=== PATIENT | male | born 1935 | race Caucasian/White ===

== ENCOUNTER → 2022-01-14 14:39 | Outpatient (BNVA) | payer MEDICARE, OTHER, SELFPAY | PROVIDERS: Family Provider Family Medicine; PCP Family Medicine; Visit Provider Internal Medicine | DX: I25.10 Atherosclerotic heart disease of native coronary artery without angina pectoris (principal); I35.8 Other nonrheumatic aortic valve disorders; Z95.2 Presence of prosthetic heart valve; Z79.01 Long term (current) use of anticoagulants; I10 Essential (primary) hypertension ==

== ENCOUNTER → 2022-01-20 12:46 | Outpatient (BNVA) | payer MEDICARE, OTHER, SELFPAY | PROVIDERS: Family Provider Family Medicine; PCP Family Medicine; Visit Provider Internal Medicine | DX: I25.10 Atherosclerotic heart disease of native coronary artery without angina pectoris (principal); I10 Essential (primary) hypertension; Z79.01 Long term (current) use of anticoagulants; I25.5 Ischemic cardiomyopathy; E78.01 Familial hypercholesterolemia; G47.33 Obstructive sleep apnea (adult) (pediatric); I27.20 Pulmonary hypertension, unspecified; Z95.2 Presence of prosthetic heart valve; Z95.1 Presence of aortocoronary bypass graft; Z95.5 Presence of coronary angioplasty implant and graft | CPT/HCPCS: 99214 ==

== ENCOUNTER 2022-02-21 13:01 | Emergency (ER) | payer MEDICARE, OTHER, SELFPAY ==
[2022-02-21 13:08] VITALS: BP 163/83; PULSE 60; RESP 16; TEMP 36.4; O2SAT 97; BMI 25.0
--- NOTE | 2022-02-21 13:15 | ECG_ITS ---
[facility] Test Date: 2022-02-21 Pat Name: Jermaine Ambrosio Department: Room: Gender: Male [employer] Department Supervisor: : [id number] Requested By: Hal Brunson Order Number: [id number] Karine MD: Israel Agarwal M.D. Measurements Intervals [place] Rate: 57 P: 36 MS: 158 QRS: -11 QRSD: 91 T: 65 QT: 436 QTc: 426 Interpretive Statements SINUS BRADYCARDIA LEFT VENTRICULAR HYPERTROPHY AND ST-T CHANGE [VOLTAGE CRITERIA PLUS ST/T ABNORMALITY] Compared to ECG 11/23/2017 15:25:08 Left ventricular hypertrophy now present ST (T wave) deviation now present Sinus rhythm no longer present Ventricular premature complex(es) no longer present T-wave abnormality no longer present Electronically Signed On 02-21-2022 22:01:08 CDT by Israel Agarwal M.D. [email or web address] Database (RCDb)[id number]
--- NOTE | 2022-02-21 13:17 | CTR_ITS ---
PROCEDURE INFORMATION: Exam: CT Angiography Head With Contrast, Arteriography Exam date and time: 02/21/2022 2:46 PM Age: 86 years old Clinical indication: Speech disturbance; Patient HX: Transient aphasia and slurred speech; Additional info: Cta TECHNIQUE: Imaging protocol: Computed tomography angiography of the head with contrast. Exam focused on the arteries. 3D rendering (Not supervised by radiologist): MIP and/or 3D reconstructed images were created by the technologist. Radiation optimization: All CT scans at this facility use at least one of these dose optimization techniques: automated exposure control; mA and/or kV adjustment per patient size (includes targeted exams where dose is matched to clinical indication); or iterative reconstruction. Contrast material: OMNI 350; Contrast volume: 95 ml; Contrast route: INTRAVENOUS (IV); COMPARISON: 1. CT head wo con* [id number] 02/21/2022 2:[address] head wo con* [id number] 11/23/2017 9:54 AM RADIATION DOSE METRICS: Total DLP (mGy-cm): 1810.9 FINDINGS: ANTERIOR CIRCULATION: Right internal carotid artery: Unremarkable. Intracranial segment is patent with no significant stenosis. No aneurysm. Right middle cerebral artery: Unremarkable. No occlusion or significant stenosis. No aneurysm. Right anterior cerebral artery: Unremarkable. No occlusion or significant stenosis. No aneurysm. Left internal carotid artery: Unremarkable. Intracranial segment is patent with no significant stenosis. No aneurysm. Left middle cerebral artery: Unremarkable. No occlusion or significant stenosis. No aneurysm. Left anterior cerebral artery: Unremarkable. No occlusion or significant stenosis. No aneurysm. POSTERIOR CIRCULATION: Right vertebral artery: Unremarkable. No occlusion or significant stenosis. No aneurysm. Left vertebral artery: Unremarkable. No occlusion or significant stenosis. No aneurysm. Basilar artery: Unremarkable. No occlusion or significant stenosis. No aneurysm. Right posterior cerebral artery: Unremarkable. No occlusion or significant stenosis. No aneurysm. Left posterior cerebral artery: Unremarkable. No occlusion or significant stenosis. No aneurysm. Brain: No definite mass, mass effect, or midline shift. Cerebral ventricles: No ventriculomegaly. Bones/joints: Unremarkable. No acute fracture. Soft tissues: Unremarkable. PROCEDURE INFORMATION: Exam: CT Angiography Neck With Contrast Exam date and time: 02/21/2022 2:46 PM Age: 86 years old Clinical indication: Speech disturbance; Patient HX: Transient aphasia and slurred speech; Additional info: Cta TECHNIQUE: Imaging protocol: Computed tomography angiography of the neck with contrast. 3D rendering (Not supervised by radiologist): MIP and/or 3D reconstructed images were created by the technologist. Radiation optimization: All CT scans at this facility use at least one of these dose optimization techniques: automated exposure control; mA and/or kV adjustment per patient size (includes targeted exams where dose is matched to clinical indication); or iterative reconstruction. Contrast material: OMNI 350; Contrast volume: 95 ml; Contrast route: INTRAVENOUS (IV); COMPARISON: 1. CT head wo con* [id number] 02/21/2022 2:[address] head wo con* [id number] 11/23/2017 9:54 AM RADIATION DOSE METRICS: Total DLP (mGy-cm): 1810.9 FINDINGS: Right common carotid artery: No stenosis. No dissection or occlusion. Right internal carotid artery: No stenosis of the extracranial segment. No dissection or occlusion. Right external carotid artery: No occlusion or stenosis of the origin. Left common carotid artery: No stenosis. No dissection or occlusion. Left internal carotid artery: No stenosis of the extracranial segment. No dissection or occlusion. Left external carotid artery: No occlusion or stenosis of the origin. Right vertebral artery: No stenosis. No dissection or occlusion. Left vertebral artery: No stenosis. No dissection or occlusion. Soft tissues: Normal. No significant soft tissue swelling. Bones/joints: No acute fracture. CT/CT angio headneck* [id number] IMPRESSION: No large vessel stenosis or occlusion. IMPRESSION: No stenosis or occlusion. REFERENCES: NASCET CRITERIA. The degree of internal carotid artery stenosis is based on NASCET criteria. Normal is no stenosis. Mild is less than 50% stenosis. Moderate is 50-69% stenosis. Severe is 70% to 99% stenosis. Total occlusion is no detectable patent lumen.
--- NOTE | 2022-02-21 13:22 | W.ED.GENADLT ---
HPI - General Adult General: Chief complaint: General Medical Stated complaint: Slurred Speech Time Seen by Provider: 02/21/22 13:14 History of Present Illness: 86-year-old who is on warfarin presents with transient episode of aphasia and slurred speech. This occurred approximately an hour ago while at [employer]. It is resolved by time of arrival. Denies any focal numbness weakness vision or hearing change. Denies any vertigo. Denies chest pain or shortness of breath recent fall or head injury. Review of Systems Narrative: - CONSTITUTIONAL: Denies weight loss, fever and chills. - HEENT: Denies changes in vision and hearing. - RESPIRATORY: Denies SOB and cough. - CV: Denies palpitations and CP. - GI: Denies abdominal pain, nausea, vomiting and diarrhea. - : Denies dysuria and urinary frequency. - MSK: Denies myalgia and joint pain. - SKIN: Denies rash and pruritus. - NEUROLOGICAL: As above - PSYCHIATRIC: Denies suicidal ideation [facility] ED PFSH: Medical History (Updated 02/21/22 @ 16:08 by Hal Brunson MD) Anticoagulant long-term use Warfarin ASHD (arteriosclerotic heart disease) CVA (cerebral vascular accident) Hyperlipidemia Ischemic cardiomyopathy MARCELO (obstructive sleep apnea) Pulmonary HTN Secondary Surgical History S/P angioplasty with stent S/P CABG (coronary artery bypass graft) S/P mitral valve replacement Mechanical mitral valve Family History Mother Hypertension CAD (coronary artery disease) Family/Other CAD (coronary artery disease) MATERNAL UNCLE Myocardial infarction Sister Diabetes Social History Smoking and tobacco status: never smoked Alcohol intake: never Lives independently: Yes Marital status: / service: No Current occupational status: retired Current gender identity: Male Marie/Gnosticism: Shinto Physical Exam Narrative: EXAM NARRATIVE: - GENERAL: Alert and oriented x 3. No acute distress. Well-nourished. - EYES: EOMI. Anicteric. - HENT: Atraumatic, no C-spine tenderness. Moist mucous membranes. No scleral icterus. No cervical lymphadenopathy. - LUNGS: Clear to auscultation bilaterally. No accessory muscle use. Equal lung sounds bilaterally. No respiratory distress. - CARDIOVASCULAR: Regular rate and rhythm. No murmur. No JVD. - ABDOMEN: Soft, non-tender and non-distended. Negative CVA tenderness bilaterally, no rebound or guarding, negative Frey sign. No palpable masses. - EXTREMITIES: No edema. Non-tender. - SKIN: No rashes or lesions. Warm. - NEUROLOGIC: GCS 15. No slurred speech or aphasia. No meningismus or focal neurological deficits. CN II-XII grossly intact. - PSYCHIATRIC: Cooperative. Appropriate mood and affect. Course Vital Signs: Vital signs: Vital Signs Temperature 97.6 F 02/21/22 13:08 Pulse Rate 60 02/21/22 13:59 Respiratory Rate 16 02/21/22 13:59 Blood Pressure 105/53 02/21/22 13:59 Pulse Oximetry 96 02/21/22 13:59 MDM - General Adult Medical Decision Making 86-year-old presents with transient aphasia and slurred speech. However by the time of his ER evaluation neurologic symptoms have completely resolved. He is NIH stroke scale is 0. CT scan of the head and CT of the head and neck did not reveal any intracranial hemorrhage or acute arterial occlusion. Lab work unremarkable. Discussed with on-call neurologist at [facility] who at this time recommends outpatient follow-up with concern for TIA. This time however does not recommend admission or MRI from the emergency department. Referral to neurology provided. At this time I believe patient would be safe for discharge and outpatient follow-up. Return precautions provided. Plan was reviewed with the patient who expressed understanding. Questions answered. Patient will follow up with neurology and PCP. Patient discharged in stable condition. Lab Data : 02/21/22 13:35 02/21/22 13:35 Radiology Impressions Head/Neck CTA 02/21/22 13:17 IMPRESSION: No large vessel stenosis or occlusion. IMPRESSION: No stenosis or occlusion. REFERENCES: NASCET CRITERIA. The degree of internal carotid artery stenosis is based on NASCET criteria. Normal is no stenosis. Mild is less than 50% stenosis. Moderate is 50-69% stenosis. Severe is 70% to 99% stenosis. Total occlusion is no detectable patent lumen. Head CT 02/21/22 14:54 IMPRESSION: 1. No acute intracranial abnormality. 2. Moderate diffuse cerebral atrophy. Focal encephalomalacia/subcortical white matter disease in the left frontal and parietal lobes, suggestive of old infarcts or chronic small vessel ischemic disease, which is progressed from prior study. Old lacunar infarcts also noted in the basal ganglia and cerebellar lobes. Laboratory Results WBC 6.3 10^3/uL (4.0-10.0) 02/21/22 13:35 RBC 3.67 10^6/uL (4.1-5.3) L 02/21/22 13:35 Hgb 11.3 g/dL (11.7-16.6) L 02/21/22 13:35 Hct 34.4 % (42.0-52.0) L 02/21/22 13:35 MCV 93.7 fl (80-94) 02/21/22 13:35 MCH 30.8 pg (28.0-34.0) 02/21/22 13:35 MCHC 32.8 g/dL (30.0-36.0) 02/21/22 13:35 RDW 14.2 % (12.1-15.1) 02/21/22 13:35 Plt Count 201 10^3/cmm (130-400) 02/21/22 13:35 MPV 11.0 fL (7.4-10.4) H 02/21/22 13:35 Neut % (Auto) 65.1 % 02/21/22 13:35 Lymph % (Auto) 21.5 % 02/21/22 13:35 [place] % (Auto) 8.1 % 02/21/22 13:35 Eos % (Auto) 4.3 % 02/21/22 13:35 Baso % (Auto) 0.5 % 02/21/22 13:35 Neut # (Auto) 4.09 10^3/uL (1.8-7.7) 02/21/22 13:35 Lymph # (Auto) 1.4 10^3/uL (0.8-4.8) 02/21/22 13:35 [place] # (Auto) 0.5 10^3/uL (0.2-0.9) 02/21/22 13:35 Eos # (Auto) 0.3 10^3/uL (0.0-0.8) 02/21/22 13:35 Baso # (Auto) 0.0 10^3/uL (0.0-0.1) 02/21/22 13:35 Nucleated RBC % (auto) 0 % 02/21/22 13:35 Nucleated RBCs # 0.0 /100WBC 02/21/22 13:35 PT 27.90 SECONDS (12.1-14.9) H 02/21/22 13:35 INR 2.55 (0.8-1.2) H 02/21/22 13:35 APTT 42.5 SECONDS (23.9-36.7) H 02/21/22 13:35 Sodium 136 mmol/L (136-145) 02/21/22 13:35 Potassium 4.3 mmol/L (3.5-5.1) 02/21/22 13:35 Chloride 102 mmol/L (98-107) 02/21/22 13:35 Carbon Dioxide 24 mmol/L (22-29) 02/21/22 13:35 Anion Gap 14.3 (5-19) 02/21/22 13:35 BUN 19 mg/dL (8-23) 02/21/22 13:35 Creatinine 1.1 mg/dL (0.7-1.2) 02/21/22 13:35 GFR Calculation Not Reportable 02/21/22 13:35 Glucose 104 mg/dL (65-115) 02/21/22 13:35 POC Glucose 103 mg/dL (70-110) 02/21/22 13:24 Calculated Osmolality 285 mOsm/kg (285-295) 02/21/22 13:35 Calcium 9.8 mg/dL (8.5-10.5) 02/21/22 13:35 Total Bilirubin 0.4 mg/dL (0.15-1.2) 02/21/22 13:35 AST 26 U/L (0-40) 02/21/22 13:35 ALT 23 U/L (0-41) 02/21/22 13:35 Alkaline Phosphatase 68 IU/L (40-130) 02/21/22 13:35 Troponin T Baseline 15 ng/L (0-15) 02/21/22 13:35 Total Protein 6.6 g/dL (6.6-8.7) 02/21/22 13:35 Albumin 4.3 g/dL (3.5-5.2) 02/21/22 13:35 Globulin 2.3 g/dL (1.3-4.6) 02/21/22 13:35 Urine Color Yellow (Yellow) 02/21/22 15:05 Urine Appearance Clear (CLEAR) 02/21/22 15:05 Urine pH 5 (5-7) 02/21/22 15:05 Ur Specific Wirt 1.010 (1.005-1.030) 02/21/22 15:05 Urine Protein Neg (Negative) 02/21/22 15:05 Urine Glucose (UA) Norm (Normal) 02/21/22 15:05 Urine Ketones Negative (Negative) 02/21/22 15:05 Urine Blood 2+ (Negative) H 02/21/22 15:05 Urine Nitrate Negative (Negative) 02/21/22 15:05 Urine Bilirubin Neg (Negative) 02/21/22 15:05 Urine Urobilinogen Norm mg/dL (Negative) 02/21/22 15:05 Ur Leukocyte Esterase Negative (Negative) 02/21/22 15:05 Urine RBC 15-25 /hpf (0-2) H 02/21/22 15:05 Urine WBC 0-4 /hpf (0-5) H 02/21/22 15:05 Ur Squamous Epith Cells 0-4 /hpf (0-5) H 02/21/22 15:05 Amorphous Sediment Not Reportable 02/21/22 15:05 Urine Bacteria 1+ /hpf (NONE) H 02/21/22 15:05 Urine Mucus 1+ /hpf 02/21/22 15:05 EKG Data EKG 1: Computer generated interpretation: Head/Neck CTA 02/21/22 13:17 IMPRESSION: No large vessel stenosis or occlusion. IMPRESSION: No stenosis or occlusion. REFERENCES: NASCET CRITERIA. The degree of internal carotid artery stenosis is based on NASCET criteria. Normal is no stenosis. Mild is less than 50% stenosis. Moderate is 50-69% stenosis. Severe is 70% to 99% stenosis. Total occlusion is no detectable patent lumen. Head CT 04/10/22 14:54 IMPRESSION: 1. No acute intracranial abnormality. 2. Moderate diffuse cerebral atrophy. Focal encephalomalacia/subcortical white matter disease in the left frontal and parietal lobes, suggestive of old infarcts or chronic small vessel ischemic disease, which is progressed from prior study. Old lacunar infarcts also noted in the basal ganglia and cerebellar lobes. Other EKG comments: Sinus bradycardia, rate of 57, possible LVH, no sign of acute ischemia or other acute abnormality. Discharge Plan Discharge Patient Disposition: Home Clinical Impression: Brain TIA Condition: Stable Prescriptions: No Action nitroglycerin [Nitrostat] 0.4 mg tablet, sublingual 0.4 mg SUBLINGUAL Q5M PRN (Reason: Chest Pain) 0RF multivitamin [Multiple Vitamins] Tablet 1 tab PO DAILY 0RF finasteride 5 mg tablet 5 mg PO DAILY 0RF donepezil 5 mg tablet 5 mg PO DAILY 0RF ferrous sulfate 325 mg (65 mg iron) tablet 325 mg PO DAILY 0RF quinapril 10 mg tablet 10 mg PO DAILY 0RF omeprazole 20 mg capsule,delayed release(DR/EC) 20 mg PO DAILY 0RF rosuvastatin [Crestor] 20 mg tablet 20 mg PO DAILY 0RF tamsulosin 0.4 mg capsule 0.4 mg PO DAILY 0RF niacin 500 mg tablet 500 mg PO DAILY 0RF warfarin 5 mg tablet 5 mg PO DAILY Qty: 90 3RF Protocol: Dose Management Condition: Tuesday Dose/Route: 6 mg Instruction: 1 x 6 mg tablet Condition: Tuesday Dose/Route: 5 mg Instruction: 1 x 5 mg tablet Condition: Tuesday Dose/Route: 6 mg Instruction: 1 x 6 mg tablet Condition: Tuesday Dose/Route: 5 mg Instruction: 1 x 5 mg tablet Condition: Dose/Route: 6 mg Instruction: 1 x 6 mg tablet Condition: Tuesday Dose/Route: 5 mg Instruction: 1 x 5 mg tablet Condition: Tuesday Dose/Route: 6 mg Instruction: 1 x 6 mg tablet Protocol Text: Adjustment Start Date: 01/14/22 INR Value: 2.7 INR Date: 01/13/22 Recheck Date: 02/11/22 warfarin 1 mg tablet 1 mg PO DIRECTED Qty: 90 3RF Protocol: Dose Management Condition: Tuesday Dose/Route: 6 mg Instruction: 1 x 6 mg tablet Condition: Tuesday Dose/Route: 5 mg Instruction: 1 x 5 mg tablet Condition: Tuesday Dose/Route: 6 mg Instruction: 1 x 6 mg tablet Condition: Tuesday Dose/Route: 5 mg Instruction: 1 x 5 mg tablet Condition: Dose/Route: 6 mg Instruction: 1 x 6 mg tablet Condition: Tuesday Dose/Route: 5 mg Instruction: 1 x 5 mg tablet Condition: Tuesday Dose/Route: 6 mg Instruction: 1 x 6 mg tablet Protocol Text: Adjustment Start Date: 01/14/22 INR Value: 2.7 INR Date: 01/13/22 Recheck Date: 02/11/22 atenolol 25 mg tablet 12.5 mg PO DAILY Qty: 45 3RF clopidogrel 75 mg tablet 75 mg PO DAILY Qty: 90 3RF Discharge Orders: Discharge ED (Routine); Ordered 02/21/22 Ordered By: Hal Brunson Referrals: Alma Aguirre MD [Physician] - 1-3 days Alicia Spicer MD [Primary Care Provider] - Patient Instructions: Transient Ischemic Attack (ED), Opioid Safety Coding Level of Care Code ED Medical Manager for Chris Maharaj
[2022-02-21 13:27] LABS: Glucose Point of Care 103 mg/dL (70-110)
[2022-02-21 13:44] LABS: Basophils % 0.5 %; Eosinophils # 0.3 10^3/uL (0.0-0.8); Eosinophils % 4.3 %; Hematocrit 34.4 % (42.0-52.0); Hemoglobin 11.3 g/dL (11.7-16.6); Lymphocytes # 1.4 10^3/uL (0.8-4.8); Lymphocytes % 21.5 %; Mean Corpuscular HGB Conc 32.8 g/dL (30.0-36.0); Mean Corpuscular Hemoglobin 30.8 pg (28.0-34.0); Mean Corpuscular Volume 93.7 fl (80-94); Monocytes # 0.5 10^3/uL (0.2-0.9); Monocytes % 8.1 %; Neutrophils # 4.09 10^3/uL (1.8-7.7); Neutrophils % 65.1 %; Nucleated Red Blood Cells % 0 %; Platelet Count 201 10^3/cmm (130-400); Red Blood Count 3.67 10^6/uL (4.1-5.3); Red Cell Distribution Width 14.2 % (12.1-15.1); White Blood Count 6.3 10^3/uL (4.0-10.0)
[2022-02-21 13:54] LABS: INR 2.55 (0.8-1.2)
[2022-02-21 13:55] LABS: Partial Thromboplastin Time 42.5 SECONDS (23.9-36.7)
[2022-02-21 13:59] VITALS: BP 105/53; PULSE 60; RESP 16; O2SAT 96
[2022-02-21 14:25] LABS: Alanine Aminotransferase 23 U/L (0-41); Albumin Level 4.3 g/dL (3.5-5.2); Alkaline Phosphatase 68 IU/L (40-130); Anion Gap 14.3 (5-19); Aspartate Amino Transferase 26 U/L (0-40); Blood Urea Nitrogen 19 mg/dL (8-23); Calcium 9.8 mg/dL (8.5-10.5); Carbon Dioxide 24 mmol/L (22-29); Chloride 102 mmol/L (98-107); Globulin 2.3 g/dL (1.3-4.6); Glucose 104 mg/dL (65-115); Osmolality Calculated 285 mOsm/kg (285-295); Potassium 4.3 mmol/L (3.5-5.1); Sodium 136 mmol/L (136-145); Total Bilirubin 0.4 mg/dL (0.15-1.2); Total Protein 6.6 g/dL (6.6-8.7); Troponin(5th) Baseline 15 ng/L (0-15)
[2022-02-21] MEDS: iohexol 350 mg/mL 100 mL Btl IV (14:53)
--- NOTE | 2022-02-21 14:54 | CTR_ITS ---
PROCEDURE INFORMATION: Exam: CT Head Without Contrast Exam date and time: 02/21/2022 2:40 PM Age: 86 years old Clinical indication: Speech disturbance; Patient HX: Transient aphasia and slurred speech TECHNIQUE: Imaging protocol: Computed tomography of the head without contrast. Radiation optimization: All CT scans at this facility use at least one of these dose optimization techniques: automated exposure control; mA and/or kV adjustment per patient size (includes targeted exams where dose is matched to clinical indication); or iterative reconstruction. COMPARISON: CT head wo con* [id number] 11/23/2017 9:54 AM RADIATION DOSE METRICS: Total DLP (mGy-cm): 785.02 FINDINGS: Brain: No hemorrhage. Moderate diffuse cerebral atrophy. Focal hypoattenuation/encephalomalacia in the subcortical white matter of the left frontal and parietal lobes, more progressed from prior study. Old lacunar infarcts noted in the basal ganglia and cerebellar lobes. Cerebral ventricles: No ventriculomegaly. Paranasal sinuses: Visualized sinuses are unremarkable. No fluid levels. Mastoid air cells: Visualized mastoid air cells are well aerated. Soft tissues: Unremarkable. Bones/joints: Unremarkable. No acute fracture. CT/CT head wo con* [id number] IMPRESSION: 1. No acute intracranial abnormality. 2. Moderate diffuse cerebral atrophy. Focal encephalomalacia/subcortical white matter disease in the left frontal and parietal lobes, suggestive of old infarcts or chronic small vessel ischemic disease, which is progressed from prior study. Old lacunar infarcts also noted in the basal ganglia and cerebellar lobes.
[2022-02-21 15:26] LABS: Urine Appearance Clear (CLEAR); Urine Color Yellow (Yellow)
[2022-02-21 15:27] LABS: Bilirubin Urine Neg (Negative); Blood Urine 2+ (Negative); Glucose Urine UA Norm (Normal); Ketones Urine Negative (Negative); Leukocyte Esterase Urine Negative (Negative); Nitrate Urine Negative (Negative); Protein Urine Neg (Negative); Urobilinogen Urine Norm (Negative); pH Urine 5 (5-7)
[2022-02-21 15:30] LABS: Add Urine Culture? Yes; Bacteria Urine 1+ /hpf; Mucus Urine 1+ /hpf; RBC Urine 15-25 /hpf (0-2); Squamous Epithelial Cell Urine 0-4 /hpf (0-5); WBC Urine 0-4 /hpf (0-5)
== END 2022-02-21 16:31 | disposition home or self-care (01) ==
PROVIDERS: Emergency Provider Emergency Medicine; PCP Family Medicine
DX: G45.9 Transient cerebral ischemic attack, unspecified (principal); I25.10 Atherosclerotic heart disease of native coronary artery without angina pectoris; E78.5 Hyperlipidemia, unspecified; Z86.73 Personal history of transient ischemic attack (TIA), and cerebral infarction without residual deficits; Z79.01 Long term (current) use of anticoagulants
CPT/HCPCS: 36416; 70450; 70496; 70498; 80053; 81001; 82962; 84484; 85025; 85610; 85730; 87086; 93005; 99283; Q9967

== ENCOUNTER → 2022-03-03 14:34 | Outpatient (BNVA) | payer MEDICARE, OTHER, SELFPAY | PROVIDERS: PCP Family Medicine; Visit Provider Internal Medicine | DX: Z79.01 Long term (current) use of anticoagulants (principal) ==

== ENCOUNTER → 2022-03-26 14:02 | Outpatient (BNVA) | payer MEDICARE, OTHER, SELFPAY | PROVIDERS: PCP Family Medicine; Visit Provider Internal Medicine | DX: Z79.01 Long term (current) use of anticoagulants (principal) ==

== ENCOUNTER → 2022-04-23 09:07 | Outpatient (BNVA) | payer MEDICARE, OTHER, SELFPAY | PROVIDERS: PCP Family Medicine; Visit Provider Internal Medicine | DX: Z79.01 Long term (current) use of anticoagulants (principal) ==

== ENCOUNTER → 2022-04-30 09:21 | Outpatient (BNVA) | payer MEDICARE, OTHER, SELFPAY | PROVIDERS: PCP Family Medicine; Visit Provider Internal Medicine Cardiovascular Disease | DX: Z79.01 Long term (current) use of anticoagulants (principal) ==

== ENCOUNTER → 2022-05-14 10:49 | Outpatient (BNVA) | payer MEDICARE, OTHER, SELFPAY | PROVIDERS: PCP Family Medicine; Visit Provider Internal Medicine Cardiovascular Disease | DX: Z79.01 Long term (current) use of anticoagulants (principal) ==

== ENCOUNTER → 2022-05-21 13:55 | Outpatient (BNVA) | payer MEDICARE, OTHER, SELFPAY | PROVIDERS: PCP Family Medicine; Visit Provider Internal Medicine | DX: Z79.01 Long term (current) use of anticoagulants (principal) ==

== ENCOUNTER → 2022-06-04 08:16 | Outpatient (BNVA) | payer MEDICARE, OTHER, SELFPAY | PROVIDERS: PCP Family Medicine; Visit Provider Internal Medicine | DX: Z79.01 Long term (current) use of anticoagulants (principal) ==

== ENCOUNTER 2022-09-11 23:20 | Emergency (ER) | payer MEDICARE, OTHER, SELFPAY ==
[2022-09-11 23:50] VITALS: BP 151/78; PULSE 59; RESP 17; TEMP 36.1; O2SAT 95; BMI 23.8
--- NOTE | 2022-09-12 01:04 | CTR_ITS ---
PROCEDURE INFORMATION: Exam: CT Lumbar Spine Without Contrast Exam date and time: 09/12/2022 1:43 AM Age: 87 years old Clinical indication: Low back pain; Patient HX: Lifting injury; Additional info: Back pain, difficulty walking TECHNIQUE: Imaging protocol: Computed tomography of the lumbar spine without contrast. Radiation optimization: All CT scans at this facility use at least one of these dose optimization techniques: automated exposure control; mA and/or kV adjustment per patient size (includes targeted exams where dose is matched to clinical indication); or iterative reconstruction. COMPARISON: CT abdomen pelvis w con* [id number] 11/23/2017 10:01 AM RADIATION DOSE METRICS: Total DLP (mGy-cm): 575.75 FINDINGS: Bones/joints: There is a new moderate compression of the superior endplate of L2 vertebral body compared with 11/23/2017. Stomach and bowel: Diverticula are present on the sigmoid colon. Vasculature: There is aneurysmal dilatation of the infrarenal abdominal aorta measuring 3.3 cm AP dimension by 3 cm transverse dimension 5.4 cm in length. There is no evidence for dissection or extravasation. Soft tissues: Unremarkable. Other findings: There is diffuse demineralization. CT/CT lumbar spine wo con* [id number] IMPRESSION: 1. Moderate compression of the superior endplate of L2 vertebral body likely secondary to the patient's diffuse demineralization. 2. Aneurysmal dilatation of the infrarenal abdominal aorta, dimensions given above. There is no evidence for dissection or extravasation. 3. Diverticulosis of the sigmoid colon
[2022-09-12 02:06] VITALS: RESP 16
[2022-09-12] MEDS: oxyCODONE 5 mg IR Tab/Cap PO (02:06)
--- NOTE | 2022-09-12 02:53 | W.ED.BACK ---
HPI - Back Pain/Injury General: Chief Complaint: Back Pain/Injury Stated Complaint: Lower back pain Time Seen by Provider: 09/12/22 00:36 Source: patient and family History of Present Illness: 87-year-old gentleman with a history of lifting an object a week and a half ago. He has experienced low back pain since that time. The pain is nonradicular. He has no numbness in his legs. No numbness in his groin or genital region. No significant weakness. He was prescribed tramadol by his doctor, which helped to some degree, but called his family and more significant pain last evening. No other injury. No pain with urination. MD elicited complaint: back pain Pertinent past history: recent trauma Onset (ago): day(s) Timing: constant Severity: moderate Similar Symptoms Previously: No Quality: sharp and stabbing Location: lumbar spine Radiation: none Exacerbating factors: movement and other (Bending forward) Relieving factors: medication Context: while lifting Associated symptoms: Deny abdominal pain, chills, dysuria, fecal incontinence, fever(s), hematuria, nausea, tingling/numbness/burning or vomiting Treatments prior to arrival: other medications Review of Systems Const: Denies: fever(s) or chills Card: Denies: chest pain Resp: Denies: dyspnea GI: Denies: abdominal pain, nausea, vomiting or fecal incontinence : Denies: flank pain, dysuria or hematuria Musc: Reports: back pain [facility] PFSH: Medical History Anticoagulant long-term use Warfarin ASHD (arteriosclerotic heart disease) CVA (cerebral vascular accident) Hyperlipidemia Ischemic cardiomyopathy MARCELO (obstructive sleep apnea) Pulmonary HTN Secondary Surgical History S/P angioplasty with stent S/P CABG (coronary artery bypass graft) S/P mitral valve replacement Mechanical mitral valve Family History Mother Hypertension CAD (coronary artery disease) Family/Other CAD (coronary artery disease) MATERNAL UNCLE Myocardial infarction Sister Diabetes Social History Smoking and tobacco status: never smoked Alcohol intake: never Lives independently: Yes Marital status: / service: No Current occupational status: retired Current gender identity: Male Marie/Confucianist: Nondenominational Physical Exam HENMT: COMMON NORMALS: normocephalic, atraumatic and Normal external nose present HEAD & SCALP: normocephalic and atraumatic FACE & SINUS: normal facial exam and face symmetric NOSE: Normal external nose present Eye: COMMON NORMALS: Equal, round and reactive pupils present and EOMs intact bilaterally PUPIL: Yes Equal, round and reactive pupils present Chest: COMMONS NORMALS: normal inspection of the chest CHEST: Yes Symmetrical chest wall rise Resp: COMMON NORMALS: normal respiratory effort, No use of accessory muscles and clear to auscultation bilaterally AUSCULTATION: clear to auscultation bilaterally Cardio: COMMON NORMALS: regular rate and regular rhythm RATE: regular rate RHYTHM: regular rhythm GI: COMMON NORMALS: Normal to inspection, nondistended, normoactive bowel sounds present, Soft to palpation and non-tender PALPATION: Yes Soft to palpation Back/Pelvis: OTHER: Minimally reproducible lumbar tenderness by palpation, however, pain is reproduced by forward bending. Nonradicular. Straight leg raise test is negative. Extremity: COMMON NORMALS: normal to inspection and no pedal edema Neuro: JUSTIN COMA SCALE: document GCS findings [place] coma scale eye opening: Spontaneous [place] coma scale verbal response: Orientated [place] coma scale motor response: Obey commands [place] coma scale total score: 15 OTHER: Sensation is intact distally. Psych: COMMON NORMALS: mental status grossly normal (Mild cognitive impairment, baseline), cooperative and speech normal SPEECH: Yes normal speech Course Vital Signs: Vital signs: Vital Signs Temperature 96.9 F L 09/11/22 23:50 Pulse Rate 59 L 09/11/22 23:50 Respiratory Rate 16 09/12/22 02:06 Blood Pressure 151/78 09/11/22 23:50 Pulse Oximetry 95 09/11/22 23:50 Oxygen Delivery Me thod 09/11/22 23:50 MDM - Back Pain/Injury Medical Decision Making CT reveals a moderate compression deformity of L2 vertebral body without retropulsion. He has diffuse osteoporosis. There is aneurysmal dilatation of the infrarenal abdominal aorta without dissection or extravasation. There are no alarming neurological findings. He will be allowed discharged on pain medication and TLSO brace. Case management will be asked to make this patient an appointment for pain management regarding the possibility of kyphoplasty if needed. Labs Radiology Impressions Lumbar Spine CT 09/12/22 01:04 IMPRESSION: 1. Moderate compression of the superior endplate of L2 vertebral body likely secondary to the patient's diffuse demineralization. 2. Aneurysmal dilatation of the infrarenal abdominal aorta, dimensions given above. There is no evidence for dissection or extravasation. 3. Diverticulosis of the sigmoid colon Discharge Plan Discharge Patient Disposition: Home Clinical Impression: Compression fracture of lumbar vertebra Condition: Stable Prescriptions: New oxycodone 5 mg capsule 5 mg PO Q8H PRN (Reason: pain) Qty: 14 0RF No Action nitroglycerin [Nitrostat] 0.4 mg tablet, sublingual 0.4 mg SUBLINGUAL Q5M PRN (Reason: Chest Pain) multivitamin [Multiple Vitamins] Tablet 1 tab PO DAILY finasteride 5 mg tablet 5 mg PO DAILY donepezil 5 mg tablet 5 mg PO DAILY ferrous sulfate 325 mg (65 mg iron) tablet 325 mg PO DAILY quinapril 10 mg tablet 10 mg PO DAILY omeprazole 20 mg capsule,delayed release(DR/EC) 20 mg PO DAILY rosuvastatin [Crestor] 20 mg tablet 20 mg PO DAILY tamsulosin 0.4 mg capsule 0.4 mg PO DAILY niacin 500 mg tablet 500 mg PO DAILY warfarin 1 mg tablet 1 mg PO DIRECTED Qty: 90 3RF Protocol: Dose Management Condition: Tuesday Dose/Route: 5 mg Instruction: 1 x 5 mg tablet Condition: Tuesday Dose/Route: 5 mg Instruction: 1 x 5 mg tablet Condition: Tuesday Dose/Route: 6 mg Instruction: 1 x 1 mg tablet, 1 x 5 mg tablet Condition: Tuesday Dose/Route: 5 mg Instruction: 1 x 5 mg tablet Condition: Dose/Route: 5 mg Instruction: 1 x 5 mg tablet Condition: Tuesday Dose/Route: 5 mg Instruction: 1 x 5 mg tablet Condition: Tuesday Dose/Route: 5 mg Instruction: 1 x 5 mg tablet Protocol Text: Adjustment Start Date: 09/09/22 INR Value: 2.2 INR Date: 09/06/22 Recheck Date: 09/16/22 clopidogrel 75 mg tablet 75 mg PO DAILY Qty: 90 3RF warfarin 5 mg tablet See Rx Instructions .ROUTE .COMPLEX Qty: 90 3RF Protocol: Dose Management Condition: Tuesday Dose/Route: 5 mg Instruction: 1 x 5 mg tablet Condition: Tuesday Dose/Route: 5 mg Instruction: 1 x 5 mg tablet Condition: Tuesday Dose/Route: 6 mg Instruction: 1 x 1 mg tablet, 1 x 5 mg tablet Condition: Tuesday Dose/Route: 5 mg Instruction: 1 x 5 mg tablet Condition: Dose/Route: 5 mg Instruction: 1 x 5 mg tablet Condition: Tuesday Dose/Route: 5 mg Instruction: 1 x 5 mg tablet Condition: Tuesday Dose/Route: 5 mg Instruction: 1 x 5 mg tablet Protocol Text: Adjustment Start Date: 09/09/22 INR Value: 2.2 INR Date: 09/06/22 Recheck Date: 09/16/22 Dose Instruction: TAKE ONE TABLET BY MOUTH DAILY PER PROTOCOL BASED OFF OF INR Rx Instructions: TAKE ONE TABLET BY MOUTH DAILY PER PROTOCOL BASED OFF OF INR atenolol 25 mg tablet 12.5 mg PO DAILY Qty: 45 3RF Discharge Orders: Discharge ED (Routine); Ordered 09/12/22 Ordered By: Frank Joyner Referrals: Alicia Spicer MD [Primary Care Provider] - 4-7 days Patient Instructions: Vertebral Compression Fracture (ED), Opioid Safety, Pain Management Activity Restrictions/Additional Instructions: Use brace while not sleeping, until cleared by your doctor. Case management has been asked to refer you to pain management regarding the potential for kyphoplasty. You should get a call from them at the beginning of the week. Return for worsening pain despite treatment, fever, mental status changes, other concerning symptoms. He should take a stool softener with pain medication. Use pain medication sparingly. Coding Level of Care Code ED Motor Vehicle [employer] Supervisor for Chris Maharaj
[2022-09-12 03:19] VITALS: RESP 17
--- NOTE | 2022-09-14 09:32 | DCPLANNER ---
Addendum entered by Camille Ruiz 11/12/22 14:22: Patient had follow up appointment scheduled with ortho - patient did not attend appointment Addendum entered by Camille Ruiz 09/22/22 14:22: Patient has a follow up appointment scheduled for September at 1:45 with Pradip Peng at ortho. Clinic will call patient with appointment information. Original Note: garde manager had message to schedule a follow up appointment for patient with ortho for kyphoplasty. garde manager sent patients information to the front office staff at ortho. Patients information will be printed and reviewed. Clinic will call patient with appointment information.
== END 2022-09-12 03:50 | disposition home or self-care (01) ==
PROVIDERS: Emergency Provider Emergency Medicine; PCP Family Medicine
DX: S32.020A Wedge compression fracture of second lumbar vertebra, initial encounter for closed fracture (principal); Z79.01 Long term (current) use of anticoagulants; Z79.02 Long term (current) use of antithrombotics/antiplatelets; Z95.1 Presence of aortocoronary bypass graft; Z86.73 Personal history of transient ischemic attack (TIA), and cerebral infarction without residual deficits; E78.5 Hyperlipidemia, unspecified; X50.0XXA Overexertion from strenuous movement or load, initial encounter
CPT/HCPCS: 72131; 99284

== ENCOUNTER 2022-09-16 12:31 | Emergency (ER) | payer MEDICARE, OTHER, SELFPAY ==
--- NOTE | 2022-09-16 12:33 | ED_ITS ---
HPI - Back Pain/Injury General: Chief Complaint: Back Pain/Injury Stated Complaint: back pain Time Seen by Provider: 09/16/22 12:33 History of Present Illness: Mr. Villasenor is a 87-year-old gentleman with history of mitral valve replacement, ischemic cardiomyopathy, CABG, on chronic ant icoagulation presented to the emergency department due to back pain. Patient himself is somewhat of a vague historian reporting that pain has been going on for some time. Per chart review he did fall approximately 1 week ago was diagnosed with a compression fracture. Pain was better last night however 10 out of 10 at this morning. He was administered Zofran and fentanyl by EMS which may explain mental status/history capability. No other specific changes in health, exacerbating, or alleviating factors identified. Onset (ago): week(s) Timing: intermittent Severity: moderate Location: lumbar spine Context: fall Review of Systems General: Reports: 10 or more systems reviewed and unremarkable except in HPI and below PFSH ED PFSH: Medical History (Updated 09/24/22 @ 00:00 by ) Anemia Anticoagulant long-term use Warfarin ASHD (arteriosclerotic heart disease) CVA (cerebral vascular accident) GERD (gastroesophageal reflux disease) Hyperlipidemia Ischemic cardiomyopathy MARCELO (obstructive sleep apnea) Pulmonary HTN Secondary Surgical History (Updated 09/21/22 @ 17:12 by Waldo Doyle DO) S/P angioplasty with stent S/P CABG (coronary artery bypass graft) S/P hernia repair S/P mitral valve replacement Mechanical mitral valve S/P rotator cuff repair Family History Mother Hypertension CAD (coronary artery disease) Family/Other CAD (coronary artery disease) MATERNAL UNCLE Myocardial infarction Sister Diabetes Social History Smoking and tobacco status: never smoked Alcohol intake: never Lives independently: Yes Marital status: / service: No Current occupational status: retired Current gender identity: Male Marie/Restorationist: Uatsdin Physical Exam Const: COMMON NORMALS: alert GENERAL APPEARANCE: cooperative and well developed HENMT: COMMON NORMALS: normocephalic and atraumatic HEAD & SCALP: normocephalic and atraumatic Eye: COMMON NORMALS: conjunctivae normal CONJUNCTIVA: Yes conjunctivae normal SCLERA: sclerae normal Neck/C-Spine: COMMON NORMALS: supple GENERAL: Yes trachea midline Resp: COMMON NORMALS: clear to auscultation bilaterally EFFORT & INSPECTION: Yes able to speak in complete sentences AUSCULTATION: clear to auscultation bilaterally Cardio: COMMON NORMALS: regular rate and regular rhythm RATE: regular rate RHYTHM: regular rhythm GI: COMMON NORMALS: Soft to palpation PALPATION: Yes Soft to palpation and No Tenderness to palpation present (GI) Extremity: GENERAL: Yes normal exam except as noted and No edema Neuro: COMMON NORMALS: moves all extremities SENSORIUM/ORIENTATION: Yes alert and No Orientation impaired Psych: COMMON NORMALS: mental status grossly normal and Normal thought process present THOUGHT PROCESS: Normal thought process present Course Vital Signs: Vital signs: Vital Signs Temperature 97.8 F 09/16/22 12:39 Pulse Rate 77 09/16/22 16:55 Respiratory Rate 14 09/16/22 16:55 Blood Pressure 132/70 09/16/22 16:55 Pulse Oximetry 92 09/16/22 16:55 Oxygen Delivery Me thod 09/16/22 12:39 MDM - Back Pain/Injury Medical Decision Making 87-year-old gentleman with history of fall with fracture presenting to the emerg ency department due to uncontrolled pain. No saddle anesthesia, change in ability to control bowel or bladder. Exam as above. Laboratory studies with minimal leukocytosis, normal hemoglobin. Metabolic panel without significant derangement. Urinalysis concerning for urinary tract infection. CT head negative for acute intracranial pathology related to trauma. CT abdomen pelvis with abnormal appearance of bladder, minimal interval increase in infrarenal aortic ectasia, vertebral compression deformities discussed. Incidental findings discussed. Patient felt improved after treatment in the emergency department. Rocephin given. The results of ED evaluation were discussed with the patient including prescriptions and/or symptomatic cares (if applicable) including appropriate and responsible use, followup plan, and return precautions. The patient verbalized understanding and felt safe for discharge. Medical Records I reviewed the patient's medical records. Labs I reviewed the patient's lab results. : 09/16/22 13:15 09/16/22 13:15 Radiology Impressions Abdomen/Pelvis CT 09/16/22 12:41 IMPRESSION: 1. Comparison CT 11/23/2017. 2. Nonobstructing left renal calculus and simple renal cysts. No suspicious renal mass or hydronephrosis. No obstructing calculi. 3. Mildly enlarged prostate and bladder wall abnormality. See discussion above. 4. Extensive colonic diverticulosis and moderate stool burden. No obvious acute bowel findings otherwise. 5. Minimal interval increase of bilobed infrarenal aortic ectasia now measuring about 3.3 cm versus 3 cm previously. Continued surveillance imaging follow-up should be considered if there is no intervention at this time. 6. Cholelithiasis. 7. Vertebral and other nonacute abdominopelvic findings as above. 8. Coronary calcifications and other lower thoracic abnormalities as described. COMMENTS: Consistent with the [employer] [place] [employer]'s Incidental Findings Committee white paper (J Am Evan Radiol 2018): Any incidental renal lesion less than 1 cm or classified as too small to characterize, or any incidental cystic renal lesion characterized as simple-appearing, is likely benign. No follow-up imaging is recommended for these lesions per consensus recommendations based on imaging criteria. Head CT 09/16/22 12:49 IMPRESSION: 1. No evidence of intracranial hemorrhage or mass effect. 2. Moderate small vessel changes with moderate parenchymal volume loss. 3. Chronic lacunar infarcts in the bilateral basal ganglia and RIGHT greater than LEFT cerebellum. 4. Chronic infarcts in the LEFT greater than RIGHT frontal lobes with encep halomalacia. Small amount of chronic encephalomalacia posterior RIGHT frontal lobe. 5. No acute intracranial findings. Laboratory Results WBC 11.2 10^3/uL (4.0-10.0) H 09/16/22 13:15 RBC 4.59 10^6/uL (4.1-5.3) 09/16/22 13:15 Hgb 13.5 g/dL (11.7-16.6) 09/16/22 13:15 Hct 42.3 % (42.0-52.0) 09/16/22 13:15 MCV 92.2 fl (80-94) 09/16/22 13:15 MCH 29.4 pg (28.0-34.0) 09/16/22 13:15 MCHC 31.9 g/dL (30.0-36.0) 09/16/22 13:15 RDW 14.3 % (12.1-15.1) 09/16/22 13:15 Plt Count 296 10^3/cmm (130-400) 09/16/22 13:15 MPV 10.3 fL (7.4-10.4) 09/16/22 13:15 Neut % (Auto) 84.3 % 09/16/22 13:15 Lymph % (Auto) 5.3 % 09/16/22 13:15 Noble % (Auto) 8.9 % 09/16/22 13:15 Eos % (Auto) 0.7 % 09/16/22 13:15 Baso % (Auto) 0.2 % 09/16/22 13:15 Neut # (Auto) 9.42 10^3/uL (1.8-7.7) H 09/16/22 13:15 Lymph # (Auto) 0.6 10^3/uL (0.8-4.8) L 09/16/22 13:15 Noble # (Auto) 1.0 10^3/uL (0.2-0.9) H 09/16/22 13:15 Eos # (Auto) 0.1 10^3/uL (0.0-0.8) 09/16/22 13:15 Baso # (Auto) 0.0 10^3/uL (0.0-0.1) 09/16/22 13:15 Nucleated RBC % (auto) 0 % 09/16/22 13:15 Nucleated RBCs # 0.0 /100WBC 09/16/22 13:15 PT 36.90 SECONDS (12.1-14.9) H 09/16/22 13:15 INR 3.69 (0.8-1.2) H 09/16/22 13:15 APTT 60.8 SECONDS (23.9-36.7) H 09/16/22 13:15 Sodium 133 mmol/L (136-145) L 09/16/22 13:15 Potassium 4.0 mmol/L (3.5-5.1) 09/16/22 13:15 Chloride 99 mmol/L (98-107) 09/16/22 13:15 Carbon Dioxide 26 mmol/L (22-29) 09/16/22 13:15 Anion Gap 12.0 (5-19) 09/16/22 13:15 BUN 32 mg/dL (8-23) H 09/16/22 13:15 Creatinine 1.1 mg/dL (0.7-1.2) 09/16/22 13:15 GFR Calculation Not Reportable 09/16/22 13:15 Glucose 128 mg/dL (65-115) H 09/16/22 13:15 Calculated Osmolality 285 mOsm/kg (285-295) 09/16/22 13:15 Calcium 10.2 mg/dL (8.5-10.5) 09/16/22 13:15 Total Bilirubin 0.8 mg/dL (0.15-1.2) 09/16/22 13:15 AST 26 U/L (0-40) 09/16/22 13:15 ALT 19 U/L (0-41) 09/16/22 13:15 Alkaline Phosphatase 107 U/L (40-130) 09/16/22 13:15 Total Protein 6.7 g/dL (6.6-8.7) 09/16/22 13:15 Albumin 3.6 g/dL (3.5-5.2) 09/16/22 13:15 Globulin 3.1 g/dL (1.3-4.6) 09/16/22 13:15 Urine Color Yellow (Yellow) 09/16/22 13:04 Urine Appearance Hazy (CLEAR) A 09/16/22 13:04 Urine pH 5 (5-7) 09/16/22 13:04 Ur Specific [place] 1.025 (1.005-1.030) 09/16/22 13:04 Urine Protein 1+ (Negative) H 09/16/22 13:04 Urine Glucose (UA) Norm (Normal) 09/16/22 13:04 Urine Ketones 1+ (Negative) H 09/16/22 13:04 Urine Blood 2+ (Negative) H 09/16/22 13:04 Urine Nitrate Negative (Negative) 09/16/22 13:04 Urine Bilirubin Neg (Negative) 09/16/22 13:04 Urine Urobilinogen Norm mg/dL (Negative) 09/16/22 13:04 Ur Leukocyte Esterase Negative (Negative) 09/16/22 13:04 Urine RBC 0-4 /hpf (0-2) H 09/16/22 13:04 Urine WBC 0-4 /hpf (0-5) H 09/16/22 13:04 Ur Squamous Epith Cells 5-10 /hpf (0-5) H 09/16/22 13:04 Amorphous Sediment Not Reportable 09/16/22 13:04 Urine Bacteria 1+ /hpf (NONE) H 09/16/22 13:04 Discharge Plan Discharge Patient Disposition: Home Clinical Impression: Compression fracture of lumbar vertebra, Acute UTI, Supratherapeutic INR, Abnormal CT of the abdomen Condition: Stable Prescriptions: New oxycodone 5 mg tablet 5 mg PO Q4H PRN (Reason: pain) Qty: 20 0RF polyethylene glycol 3350 [Miralax] 17 gram powder in packet 17 g PO DAILY PRN (Reason: while taking oxycodone/opioids) Qty: 30 0RF cefpodoxime 200 mg tablet 200 mg PO BID Qty: 20 0RF Rx Instructions: must administer with a meal/food No Action multivitamin [Multiple Vitamins] Tablet 1 tab PO QAM finasteride 5 mg tablet 5 mg PO QPM ferrous sulfate 325 mg (65 mg iron) tablet 325 mg PO QAM quinapril 10 mg tablet 10 mg PO QAM omeprazole 20 mg capsule,delayed release(DR/EC) 20 mg PO QAM rosuvastatin [Crestor] 20 mg tablet 20 mg PO QPM tamsulosin 0.4 mg capsule 0.4 mg PO BID niacin 500 mg tablet 500 mg PO QPM donepezil 10 mg tablet 10 mg PO QPM Nitrostat 0.4 mg Tablet, Sublingual 0.4 mg SUBLINGUAL Q5M PRN (Reason: Chest Pain) Rx Instructions: do not exceed 3 doses per episode Colace 100 mg Capsule 100 mg PO BID clopidogrel 75 mg tablet 75 mg PO QAM warfarin 5 mg tablet 5 mg PO QPM Protocol: Dose Management Condition: Tuesday Dose/Route: 5 mg Instruction: 1 x 5 mg tablet Condition: Tuesday Dose/Route: 5 mg Instruction: 1 x 5 mg tablet Condition: Tuesday Dose/Route: 5 mg Instruction: 1 x 5 mg tablet Condition: Tuesday Dose/Route: 5 mg Instruction: 1 x 5 mg tablet Condition: Dose/Route: 5 mg Instruction: 1 x 5 mg tablet Condition: Tuesday Dose/Route: 5 mg Instruction: 1 x 5 mg tablet Condition: Tuesday Dose/Route: 5 mg Instruction: 1 x 5 mg tablet Protocol Text: Adjustment Start Date: 09/16/22 INR Value: 36.90 SECONDS INR Date: 09/16/22 Recheck Date: 09/23/22 atenolol 25 mg tablet 12.5 mg PO QPM Discharge Orders: Discharge ED (Routine); Ordered 09/16/22 Ordered By: Patricio Leon Referrals: Alicia Spicer MD [Primary Care Provider] - Discharge Diet: Usual diet Discharge Activity: Limit activity as instructed Patient Instructions: Urinary Tract Infection in Men (ED), Vertebral Compression Fracture (ED), Opioid Safety, Pain Management Activity Restrictions/Additional Instructions: Thank you for visiting the emergency department. You were seen and evaluated for back pain. The exact cause of your symptoms is unclear though likely related to previously identified compression fracture. You also have a urinary tract infection which will be treated with antibiotics. Please follow-up with a primary care provider and orthopedics as previously directed. You may use oxycodone 1 tab every 4 hours for pain, please use this cautiously. Return to the emergency department for uncontrolled symptoms or anything else that you are concerned about a feel needs emergency department evaluation. Incidental findings- Renal cysts, 3.3 cm infrarenal aortic ectasia, gallstones, bladder asymmetry which may be due to underlying neoplasm or urinary tract infection, constipation. Please discuss further for results with your primary care provider. Coding Level of Care Code ED Dock Guard for Chg Fwd Exam Comprehensive
[2022-09-16 12:39] VITALS: BP 114/66; PULSE 80; RESP 18; TEMP 36.6; O2SAT 91
--- NOTE | 2022-09-16 12:41 | CTR_ITS ---
PROCEDURE INFORMATION: Exam: CT Abdomen And Pelvis With Contrast Exam date and time: 09/16/2022 2:15 PM Age: 87 years old Clinical indication: Other: Hematuria; Abdominal pain; Additional info: Back pain TECHNIQUE: Imaging protocol: Computed tomography of the abdomen and pelvis with contrast. Radiation optimization: All CT scans at this facility use at least one of these dose optimization techniques: automated exposure control; mA and/or kV adjustment per patient size (includes targeted exams where dose is matched to clinical indication); or iterative reconstruction. Contrast material: OMNI 350; Contrast volume: 100 ml; Contrast route: INTRAVENOUS (IV); COMPARISON: 1. CT lumbar spine wo con* [id number] 09/12/2022 1:[address] abdomen pelvis w con* [id number] 11/23/2017 10:01 AM RADIATION DOSE METRICS: Total DLP (mGy-cm): 772.05 FINDINGS: Lungs: Mild central/infrahilar peribronchial thickening and scarring/traction bronchiectasis in the posterior basilar region suggesting early fibrotic disease. Heart: Mild 4 chamber cardiomegaly with mitral valve prosthesis and coronary calcification. Liver: Normal. No mass. Gallbladder and bile ducts: Several tiny calcified gallbladder calculi. Gallbladder is somewhat distended which may be related to prolonged fasting versus cholestasis. No obvious imaging signs of acute cholecystitis or bile duct dilatation. Clinical correlation should be obtained. Sonographic follow-up may also be considered if clinically indicated. Pancreas: Normal. No ductal dilation. Spleen: Normal. No splenomegaly. Adrenal glands: Nodular thickening of the left adrenal gland, measuring 1 cm, with no significant change versus November 2017 and is most likely benign adenoma. Kidneys and ureters: No obstructing urinary calculi or hydronephrosis. Bilobed simple left renal cyst extending into the left renal pelvis, measuring 4.4 by 3.2 cm. A few other tiny simple cysts are also seen. There is a nonobstructing left lower pole renal calculus, measuring 5 x 5 mm. No suspicious renal mass otherwise. Stomach and bowel: Moderate stool burden with extensive colonic diverticulosis. No obvious diverticulitis, bowel obstruction or suspicious bowel wall thickening. Appendix: No evidence of appendicitis. Intraperitoneal space: An ill-defined right inguinal density is noted which may represent a surgical hernia plug, unchanged. No free air or ascites. Vasculature: Extensive arterial calcification with bilobed mild distal infrarenal aortic ectasia measuring about 3.3 cm, versus 3 cm on transverse images on prior exam. Suprarenal aorta measures 2.1 cm. Lymph nodes: No enlarged lymph nodes. Urinary bladder: Well distended urinary bladder with minimal bladder wall thickening in the posterolateral aspect with slight wall irregularity. This may be related to hypertrophy or mild cystitis however bladder neoplasm can not be excluded. Cystoscopy correlation should be considered. Reproductive: Mild prostate enlargement. Bones/joints: Probable osteopenia. Multilevel vertebral disc degeneration and endplate osteophytes. New moderate-severe L2 vertebral body compression deformity with minimal retropulsed element and no subluxation as described on most recent lumbar spine CT exam. This is of indeterminate age but new since 2018. No acute osseous findings otherwise. Soft tissues: No acute findings. CT/CT abdomen pelvis w con* [id number] IMPRESSION: 1. Comparison CT 11/23/2017. 2. Nonobstructing left renal calculus and simple renal cysts. No suspicious renal mass or hydronephrosis. No obstructing calculi. 3. Mildly enlarged prostate and bladder wall abnormality. See discussion above. 4. Extensive colonic diverticulosis and moderate stool burden. No obvious acute bowel findings otherwise. 5. Minimal interval increase of bilobed infrarenal aortic ectasia now measuring about 3.3 cm versus 3 cm previously. Continued surveillance imaging follow-up should be considered if there is no intervention at this time. 6. Cholelithiasis. 7. Vertebral and other nonacute abdominopelvic findings as above. 8. Coronary calcifications and other lower thoracic abnormalities as described. COMMENTS: Consistent with the [employer]'s Incidental Findings Committee white paper (J Am Evan Radiol 2018): Any incidental renal lesion less than 1 cm or classified as too small to characterize, or any incidental cystic renal lesion characterized as simple-appearing, is likely benign. No follow-up imaging is recommended for these lesions per consensus recommendations based on imaging criteria.
--- NOTE | 2022-09-16 12:49 | CT_ITS ---
WS: [id number] CT HEAD TECHNIQUE: Noncontrast CT of the head obtained from the skullbase to the vertex. CLINICAL INFORMATION: ams COMPARISON: 2018 DLP: 1028.[address] scans at [facility] use at least one of these dose optimization techniques: automated e xposure control; mA and/or kV adjustment per patient size (includes targeted exams where dose is matc hed to clinical indication); or iterative reconstruction. FINDINGS: No evidence of intracranial hemorrhage or mass effect. Moderate small vessel changes with moderate pa renchymal volume loss. Chronic lacunar infarcts in the bilateral basal ganglia and RIGHT greater than LEFT cerebellum. Vascular calcification. Chronic infarcts in the LEFT greater than RIGHT parietal lo bes with encephalomalacia. Small amount of chronic encephalomalacia posterior RIGHT frontal lobe. Vas cular calcification. Paranasal sinuses and mastoid air cells are well aerated. .Normal visualized soft tissues. CT/CT head wo con* [id number] IMPRESSION: 1. No evidence of intracranial hemorrhage or mass effect. 2. Moderate small vessel changes with moderate parenchymal volume loss. 3. Chronic lacunar infarcts in the bilateral basal ganglia and RIGHT greater t jauregui LEFT cerebellum. 4. Chronic infarcts in the LEFT greater than RIGHT frontal lobes with encephal omalacia. Small amount of chronic encephalomalacia posterior RIGHT frontal lobe . 5. No acute intracranial findings.
[2022-09-16 12:58] VITALS: BP 114/66; PULSE 100; RESP 16; O2SAT 98
[2022-09-16] MEDS: pantoprazole 40 mg SDV IVP (13:10)
[2022-09-16] MEDS: ketorolac 30 mg/mL INJ 15 MG IVP (13:10)
[2022-09-16] MEDS: methocarbamol 750 mg Tablet PO (13:10)
[2022-09-16 13:25] LABS: Basophils % 0.2 %; Eosinophils # 0.1 10^3/uL (0.0-0.8); Eosinophils % 0.7 %; Hematocrit 42.3 % (42.0-52.0); Hemoglobin 13.5 g/dL (11.7-16.6); Lymphocytes # 0.6 10^3/uL (0.8-4.8); Lymphocytes % 5.3 %; Mean Corpuscular HGB Conc 31.9 g/dL (30.0-36.0); Mean Corpuscular Hemoglobin 29.4 pg (28.0-34.0); Mean Corpuscular Volume 92.2 fl (80-94); Mean Platelet Volume 10.3 fL (7.4-10.4); Monocytes % 8.9 %; Neutrophils # 9.42 10^3/uL (1.8-7.7); Neutrophils % 84.3 %; Nucleated Red Blood Cells % 0 %; Platelet Count 296 10^3/cmm (130-400); Red Blood Count 4.59 10^6/uL (4.1-5.3); Red Cell Distribution Width 14.3 % (12.1-15.1); White Blood Count 11.2 10^3/uL (4.0-10.0)
[2022-09-16 13:32] LABS: Protein Urine 1+ (Negative); Specific Gravity, Urine 1.025 (1.005-1.030); Urine Appearance Hazy (CLEAR); Urine Color Yellow (Yellow); pH Urine 5 (5-7)
[2022-09-16 13:33] LABS: Add Urine Culture? No; Add Urine Microscopic? YES; Bacteria Urine 1+ /hpf; Bilirubin Urine Neg (Negative); Blood Urine 2+ (Negative); Glucose Urine UA Norm (Normal); Ketones Urine 1+ (Negative); Leukocyte Esterase Urine Negative (Negative); Nitrate Urine Negative (Negative); RBC Urine 0-4 /hpf (0-2); Urobilinogen Urine Norm (Negative); WBC Urine 0-4 /hpf (0-5)
[2022-09-16 13:40] LABS: INR 3.69 (0.8-1.2)
[2022-09-16 13:41] LABS: Partial Thromboplastin Time 60.8 SECONDS (23.9-36.7)
[2022-09-16 13:45] LABS: Alanine Aminotransferase 19 U/L (0-41); Albumin Level 3.6 g/dL (3.5-5.2); Alkaline Phosphatase 107 U/L (40-130); Aspartate Amino Transferase 26 U/L (0-40); Blood Urea Nitrogen 32 mg/dL (8-23); Calcium 10.2 mg/dL (8.5-10.5); Carbon Dioxide 26 mmol/L (22-29); Chloride 99 mmol/L (98-107); Globulin 3.1 g/dL (1.3-4.6); Glucose 128 mg/dL (65-115); Osmolality Calculated 285 mOsm/kg (285-295); Sodium 133 mmol/L (136-145); Total Bilirubin 0.8 mg/dL (0.15-1.2); Total Protein 6.7 g/dL (6.6-8.7)
[2022-09-16] MEDS: iohexol 350 mg/mL 500 mL Btl (per mL) IV (15:11)
[2022-09-16] MEDS: cefTRIAXone 1,000 MG in sodium chloride 0.9% (plus) 50 ML 100 MG IV (16:01)
[2022-09-16 16:46] VITALS: BP 132/70; PULSE 77; RESP 14; O2SAT 92
[2022-09-16 16:55] VITALS: BP 132/70; PULSE 77; RESP 14; O2SAT 92
== END 2022-09-16 16:56 | disposition home or self-care (01) ==
PROVIDERS: Emergency Provider Emergency Medicine; PCP Family Medicine
DX: S32.000A Wedge compression fracture of unspecified lumbar vertebra, initial encounter for closed fracture (principal); N39.0 Urinary tract infection, site not specified; R93.5 Abnormal findings on diagnostic imaging of other abdominal regions, including retroperitoneum; R79.1 Abnormal coagulation profile; Z79.02 Long term (current) use of antithrombotics/antiplatelets; Z79.01 Long term (current) use of anticoagulants; Z86.73 Personal history of transient ischemic attack (TIA), and cerebral infarction without residual deficits; E78.5 Hyperlipidemia, unspecified; Z95.1 Presence of aortocoronary bypass graft; X58.XXXA Exposure to other specified factors, initial encounter
CPT/HCPCS: 36415; 70450; 74177; 80053; 81001; 85025; 85610; 85730; 96365; 96375; 99285; C9113; J0696; J1885; Q9967

== ENCOUNTER 2022-09-21 10:03 | Inpatient (IN) | payer MEDICARE, OTHER, SELFPAY ==
[2022-09-21] VITALS (14 sets, daily range): BP systolic 87–141; BP diastolic 45–78; PULSE 70–94; RESP 15–18; TEMP 36.2–36.8; O2SAT 91–100
--- NOTE | 2022-09-21 10:14 | W.ED.RECABL ---
HPI - Recheck/Abnormal Lab/Rx General: Chief Complaint: Recheck/Abnormal Lab/Rx Stated Complaint: Dr. Spicer sent for abnormal labs Time Seen by Provider: 09/21/22 10:13 History of Present Illness: 87-year-old male presents emergency room at direction of his physician. Patient had an INR of slightly over 8. He is on Coumadin for prosthetic mitral valve recently admitted checked 11 three 3.69 according to the records. He has a little abdominal discomfort but he is notably hypotensive. He did take all of his usual morning medications which include tamsulosin on quinapril and atenolol. Returns today for: called because of abnormal lab/test Symptoms since prior visit: no new symptoms Associated symptoms: none Review of Systems Const: Denies: fever(s), chills, body aches, change in appetite, fatigue or malaise ENMT: Denies: throat pain, ear or mastoid pain, nasal discharge or nasal congestion Card: Denies: chest pain, edema, dyspnea on exertion or orthopnea Resp: Denies: dyspnea, productive cough or non-productive cough GI: Reports: abdominal pain; Denies: nausea, vomiting, hematemesis, coffee ground emesis, diarrhea, constipation, bloating, hematochezia or melena : Denies: flank pain, dysuria, urinary frequency or urinary urgency Skin/Breast: Denies: rash or pruritus PFSH ED PFSH: Medical History (Updated 09/21/22 @ 17:12 by Waldo Doyle DO) Anemia Anticoagulant long-term use Warfarin ASHD (arteriosclerotic heart disease) CVA (cerebral vascular accident) GERD (gastroesophageal reflux disease) Hyperlipidemia Ischemic cardiomyopathy MARCELO (obstructive sleep apnea) Pulmonary HTN Secondary Surgical History (Updated 09/21/22 @ 17:12 by Waldo Doyle DO) S/P angioplasty with stent S/P CABG (coronary artery bypass graft) S/P hernia repair S/P mitral valve replacement Mechanical mitral valve S/P rotator cuff repair Family History Mother Hypertension CAD (coronary artery disease) Family/Other CAD (coronary artery disease) MATERNAL UNCLE Myocardial infarction Sister Diabetes Social History Smoking and tobacco status: never smoked Alcohol intake: never Lives independently: Yes Marital status: / service: No Current occupational status: retired Current gender identity: Male Marie/[employer]: [employer] Physical Exam Const: GENERAL APPEARANCE: cooperative and comfortable ORIENTATION/CONSCIOUSNESS: Yes awake, Yes oriented to person, Yes oriented to place and Yes oriented to time HENMT: COMMON NORMALS: normocephalic, atraumatic and hearing grossly normal bilaterally HEAD & SCALP: normocephalic and atraumatic Resp: COMMON NORMALS: normal respiratory effort, No retractions, No use of accessory muscles and clear to auscultation bilaterally AUSCULTATION: clear to auscultation bilaterally Cardio: COMMON NORMALS: regular rate, regular rhythm and No murmurs present (Cardio) RATE: regular rate RHYTHM: regular rhythm GI: COMMON NORMALS: No hepatosplenomegaly present AUSCULTATION: Yes normoactive bowel sounds PALPATION: Yes Tenderness to palpation present (GI) (Diffuse), No Guarding due to palpation present (GI) and Yes No hepatosplenomegaly present Extremity: COMMON NORMALS: normal to inspection, capillary refill normal, no clubbing, cyanosis or edema, no calf tenderness and no pedal edema Neuro: SENSORIUM/ORIENTATION: Yes oriented to person, Yes oriented to place and Yes oriented to time Skin: COMMON NORMALS: no rashes or lesions noted GENERAL SKIN EXAM: no rashes or lesions noted Course Vital Signs: Vital signs: Vital Signs Temperature 97.2 F L 09/21/22 10:08 Pulse Rate 72 09/21/22 16:44 Respiratory Rate 16 09/21/22 16:00 Blood Pressure 109/68 09/21/22 16:00 Pulse Oximetry 96 09/21/22 16:00 Oxygen Delivery Me thod 09/21/22 16:00 MDM - Recheck/Abnormal Lab/Rx Medical Decision Making INR yesterday was over 8 today with 6.6 it is improving some CT done because of abdominal tenderness shows a right iliopsoas hematoma and slight loss of vertebral height on previously known L2 fracture. Patient also has acute kidney injury and was hypotensive. He did respond well to fluids he will need further fluids and monitoring of his INR and his creatinine discussed with hospitalist orders written Medical Records I reviewed the patient's medical records. Lab Data I reviewed the patient's lab results. : 09/21/22 10:25 09/21/22 10:25 Radiology Impressions Abdomen/Pelvis CT 09/21/22 10:30 IMPRESSION: 1. Interval enlargement of the right iliopsoas muscle with minimal adjacent fat stranding, and peritoneal thickening overall concerning for intramuscular hemorrhage/hematoma. 2. 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 Correlate with any focal pain in this region. 3. Cholelithiasis without evidence of acute cholecystitis. 4. Colonic diverticulosis without signs of acute diverticulitis. 5. Left-sided nephrolithiasis. No signs of urinary obstruction. COMMENTS: Consistent with the [employer]'s Incidental Findings Committee white paper (J Am Evan Radiol 2018): Any incidental renal lesion less than 1 cm or classified as too small to characterize, or any incidental cystic renal lesion characterized as simple-appearing, is likely benign. No follow-up imaging is recommended for these lesions per consensus recommendations based on imaging criteria. ADDENDUM: 09/21/22 1130 THIS REPORT CONTAINS FINDINGS THAT MAY BE CRITICAL TO PATIENT CARE. The findings were verbally communicated via telephone conference with WALDO Bolton at 11:26 AM TRANSCRIPTION COORDINATOR on 09/21/2022. The findings were acknowledged and understood. Chest X-Ray 09/21/22 10:30 Impression: Atherosclerosis. Laboratory Results WBC 14.4 10^3/uL (4.0-10.0) H 09/21/22 10:25 RBC 3.86 10^6/uL (4.1-5.3) L 09/21/22 10:25 Hgb 11.4 g/dL (11.7-16.6) L 09/21/22 10:25 Hct 35.3 % (42.0-52.0) L 09/21/22 10:25 MCV 91.5 fl (80-94) 09/21/22 10:25 MCH 29.5 pg (28.0-34.0) 09/21/22 10:25 MCHC 32.3 g/dL (30.0-36.0) 09/21/22 10:25 RDW 14.3 % (12.1-15.1) 09/21/22 10:25 Plt Count 366 10^3/cmm (130-400) 09/21/22 10:25 MPV 10.7 fL (7.4-10.4) H 09/21/22 10:25 Neut % (Auto) 85.7 % 09/21/22 10:25 Lymph % (Auto) 5.4 % 09/21/22 10:25 Haywood % (Auto) 7.8 % 09/21/22 10:25 Eos % (Auto) 0.3 % 09/21/22 10:25 Baso % (Auto) 0.1 % 09/21/22 10:25 Neut # (Auto) 12.31 10^3/uL (1.8-7.7) H 09/21/22 10:25 Lymph # (Auto) 0.8 10^3/uL (0.8-4.8) 09/21/22 10:25 Haywood # (Auto) 1.1 10^3/uL (0.2-0.9) H 09/21/22 10:25 Eos # (Auto) 0.1 10^3/uL (0.0-0.8) 09/21/22 10:25 Baso # (Auto) 0.0 10^3/uL (0.0-0.1) 09/21/22 10:25 Nucleated RBC % (auto) 0 % 09/21/22 10:25 Nucleated RBCs # 0.0 /100WBC 09/21/22 10:25 PT 55.60 SECONDS (12.1-14.9) H 09/21/22 10:25 INR 6.29 (0.8-1.2) H* 09/21/22 10:25 Sodium 130 mmol/L (136-145) L 09/21/22 10:25 Potassium 3.7 mmol/L (3.5-5.1) 09/21/22 10:25 Chloride 95 mmol/L (98-107) L 09/21/22 10:25 Carbon Dioxide 24 mmol/L (22-29) 09/21/22 10:25 Anion Gap 14.7 (5-19) 09/21/22 10:25 BUN 38 mg/dL (8-23) H 09/21/22 10:25 Creatinine 2.2 mg/dL (0.7-1.2) H 09/21/22 10:25 GFR Calculation Not Reportable 09/21/22 10:25 Glucose 125 mg/dL (65-115) H 09/21/22 10:25 Calculated Osmolality 281 mOsm/kg (285-295) L 09/21/22 10:25 Lactic Acid 2.5 mmol/L (0.5-2.2) H 09/21/22 10:25 Lactic Acid (Sepsis) 0.8 mmol/L (0.5-2.2) 09/21/22 13:54 Calcium 10.1 mg/dL (8.5-10.5) 09/21/22 10:25 Urine Color Yellow (Yellow) 09/21/22 13:55 Urine Appearance Cloudy (CLEAR) A 09/21/22 13:55 Urine pH 5 (5-7) 09/21/22 13:55 Ur Specific Ethel 1.010 (1.005-1.030) 09/21/22 13:55 Urine Protein Trace (Negative) 09/21/22 13:55 Urine Glucose (UA) Norm (Normal) 09/21/22 13:55 Urine Ketones 1+ (Negative) H 09/21/22 13:55 Urine Blood 3+ (Negative) H 09/21/22 13:55 Urine Nitrate Negative (Negative) 09/21/22 13:55 Urine Bilirubin Neg (Negative) 09/21/22 13:55 Urine Urobilinogen Norm mg/dL (Negative) 09/21/22 13:55 Ur Leukocyte Esterase Negative (Negative) 09/21/22 13:55 Urine RBC >100 /hpf (0-2) H 09/21/22 13:55 Urine WBC 10-15 /hpf (0-5) H 09/21/22 13:55 Ur Squamous Epith Cells 0-4 /hpf (0-5) H 09/21/22 13:55 Amorphous Sediment 1+ /hpf 09/21/22 13:55 Urine Bacteria Trace /hpf (NONE) 09/21/22 13:55 Hyaline Casts 0-4 /lpf H 09/21/22 13:55 Discharge Plan Discharge Patient Disposition: Placed in Observation Admit Provider: Rc Abrams Clinical Impression: Supratherapeutic INR, Abnormal CT of the abdomen, S/P mitral valve replacement, Ischemic cardiomyopathy, Anticoagulant long-term use, S/P CABG (coronary artery bypass graft) Coding Level of Care Code ED Transitions Rn Care Coordinator for Chg Fwd Exam Detailed
--- NOTE | 2022-09-21 10:30 | CTR_ITS ---
PROCEDURE INFORMATION: Exam: CT Abdomen And Pelvis With Contrast Exam date and time: 09/21/2022 10:53 AM Age: 87 years old Clinical indication: Abdominal pain and other: Back; Generalized; Additional info: Abd pain TECHNIQUE: Imaging protocol: Computed tomography of the abdomen and pelvis with contrast. Radiation optimization: All CT scans at this facility use at least one of these dose optimization techniques: automated exposure control; mA and/or kV adjustment per patient size (includes targeted exams where dose is matched to clinical indication); or iterative reconstruction. Contrast material: OMNI 350; Contrast volume: 100 ml; Contrast route: INTRAVENOUS (IV); COMPARISON: 1. CT abdomen pelvis w con* [id number] 09/16/2022 2:[address] abdomen pelvis w con* [id number] 11/23/2017 10:01 AM RADIATION DOSE METRICS: Total DLP (mGy-cm): 553.25 FINDINGS: Tubes, catheters and devices: Prosthetic mitral valve noted. Heart: Coronary artery calcifications noted. Liver: The liver is normal in size and contour. Gallbladder and bile ducts: Multiple calcified gallstones noted. No gallbladder wall thickening or pericholecystic fat stranding or fluid. Pancreas: The pancreas appears normal. Spleen: The spleen appears normal. Adrenal glands: 1.3 cm nodule in the left adrenal gland measuring 85 Hounsfield units, unchanged since 2018. No follow-up necessary Kidneys and ureters: Simple cyst in the left kidney. Stone in the lower pole the left kidney measuring up to 7 mm. No signs of urinary obstruction. Stomach and bowel: The stomach appears unremarkable. The small bowel loops are not abnormally dilated. The large bowel loops are not abnormally dilated. Colonic diverticulosis without signs of acute diverticulitis. Appendix: The appendix appears normal. Intraperitoneal space: No ascites or significant fluid collection. Interval enlargement of the right iliopsoas muscle with minimal adjacent fat stranding, and peritoneal thickening. 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 Lymph nodes: There are no enlarged lymph nodes. Urinary bladder: The bladder is distended and demonstrates no focal contour abnormality. Reproductive: Unremarkable as visualized. Bones/joints: Median sternotomy wires and postsurgical changes in the mediastinum identified. Vertebral plana deformity again noted at L2, slightly more compressed to recent prior exam and now also demonstrates minimal foci of air within the vertebral body. Soft tissues: Stable indeterminate soft tissue density again noted along the right inguinal canal near the internal os, unchanged from prior exams dating back to 2018. CT/CT abdomen pelvis w con* [id number] IMPRESSION: 1. Interval enlargement of the right iliopsoas muscle with minimal adjacent fat stranding, and peritoneal thickening overall concerning for intramuscular hemorrhage/hematoma. 2. 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 Correlate with any focal pain in this region. 3. Cholelithiasis without evidence of acute cholecystitis. 4. Colonic diverticulosis without signs of acute diverticulitis. 5. Left-sided nephrolithiasis. No signs of urinary obstruction. COMMENTS: Consistent with the [employer]'s Incidental Findings Committee white paper (J Am Evan Radiol 2018): Any incidental renal lesion less than 1 cm or classified as too small to characterize, or any incidental cystic renal lesion characterized as simple-appearing, is likely benign. No follow-up imaging is recommended for these lesions per consensus recommendations based on imaging criteria.
--- NOTE | 2022-09-21 10:30 | XR_ITS ---
WS: [id number] Portable AP upright chest, 09/21/2022 Clinical Data: dyspnea/cough Comparison: Portable chest, 11/23/2017. Findings: No nodules, masses or effusions are seen. The heart is normal. The pulmonary vascularity is not increased. No pneumonia or pneumothorax is seen. There is minimal atelectasis over the surface o f the left diaphragm. There are midline sternotomy sutures with an artificial cardiac valve. Mediasti nal surgical clips are present. There is an orthopedic anchor in the right humeral head. There are hester rgical clips in the left apex and adjacent to the proximal thoracic portion of the trachea. XR/XR chest 1V portable [id number] Impression: Atherosclerosis.
[2022-09-21] MEDS: sodium chloride 0.9% 1,000 ML 999 ML IV ×2 (10:50→11:21)
[2022-09-21 10:56] LABS: Basophils % 0.1 %; Eosinophils # 0.1 10^3/uL (0.0-0.8); Eosinophils % 0.3 %; Hematocrit 35.3 % (42.0-52.0); Hemoglobin 11.4 g/dL (11.7-16.6); Lymphocytes # 0.8 10^3/uL (0.8-4.8); Lymphocytes % 5.4 %; Mean Corpuscular HGB Conc 32.3 g/dL (30.0-36.0); Mean Corpuscular Hemoglobin 29.5 pg (28.0-34.0); Mean Corpuscular Volume 91.5 fl (80-94); Mean Platelet Volume 10.7 fL (7.4-10.4); Monocytes # 1.1 10^3/uL (0.2-0.9); Monocytes % 7.8 %; Neutrophils # 12.31 10^3/uL (1.8-7.7); Neutrophils % 85.7 %; Nucleated Red Blood Cells % 0 %; Platelet Count 366 10^3/cmm (130-400); Red Blood Count 3.86 10^6/uL (4.1-5.3); Red Cell Distribution Width 14.3 % (12.1-15.1); White Blood Count 14.4 10^3/uL (4.0-10.0)
[2022-09-21 10:58] LABS: Anion Gap 14.7 (5-19); Blood Urea Nitrogen 38 mg/dL (8-23); Calcium 10.1 mg/dL (8.5-10.5); Carbon Dioxide 24 mmol/L (22-29); Chloride 95 mmol/L (98-107); Glucose 125 mg/dL (65-115); Lactic Sepsis W/Reflex 2.5 mmol/L (0.5-2.2); Osmolality Calculated 281 mOsm/kg (285-295); Potassium 3.7 mmol/L (3.5-5.1); Sodium 130 mmol/L (136-145)
[2022-09-21] MEDS: iohexol 350 mg/mL 500 mL Btl (per mL) IV (11:00)
[2022-09-21 11:10] LABS: INR 6.29 (0.8-1.2)
[2022-09-21 12:21] LABS: Reflex Lactate Order REFLEX LACTIC ORDERD
--- NOTE | 2022-09-21 13:02 | P.HP_ITS ---
Providers/Chief Complaint Primary Care Provider: Alicia Spicer MD Chief Complaint: Dr. Spicer sent for abnormal labs History of Present Illness Jermaine Ambrosio is a 87 year old male who takes Coumadin for mechanical valve, presented to the hospital because of abnormal INR. Patient was asked to come to the ER by his PCP because he is INR was above 8. Patient is not a good historian, family is at the bedside who is stating that he is debilitated because of his back pain he is not very mobile at home he has dementia, daughter is her DPOA, they have not witnessed any recent falls, they were given an appointment to follow-up with pain management clinic In the ER his hemoglobin is stable at 11.4 INR 6.2 BRIANNE 2.2 creatinine hyponatremia sodium 130 abnormal UA Retroperitoneal hematoma right iliopsoas muscle area L2 compression Left-sided nephrolithiasis Diverticulosis Cholelithiasis In the ER he was hypotensive got 2 L IV bolus No active bleeding, hemodynamic instability Hospital service was requested to observe him overnight Review of Systems Const: Reports: fatigue Eyes: Denies: change in vision ENMT: Denies: throat pain Card: Denies: chest pain Resp: Reports: dyspnea GI: Reports: abdominal pain : Denies: flank pain Musc: Reports: back pain Skin/Breast: Denies: rash Neuro: Reports: headache(s) Psych: Denies: anxiety Endo: Denies: polyuria Calvin/Lymph: Denies: easy bruising All/Imm: Denies: urticaria Medications/Allergies Home Medications Medication Instructions Recorded Confirmed Last Taken Type niacin 500 mg tablet 500 mg PO QPM 12/10/19 09/21/22 09/20/22 History omeprazole 20 mg capsule,delayed 20 mg PO QAM 12/10/19 09/21/22 09/21/22 History release quinapril 10 mg tablet 10 mg PO QAM 12/10/19 09/21/22 09/21/22 History rosuvastatin 20 mg tablet (Crestor) 20 mg PO QPM 12/10/19 09/21/22 09/15/22 History tamsulosin 0.4 mg capsule 0.4 mg PO BID 12/10/19 09/21/22 09/21/22 History ferrous sulfate 325 mg (65 mg 325 mg PO QAM 01/20/22 09/21/22 09/21/22 History iron) tablet finasteride 5 mg tablet 5 mg PO QPM 01/20/22 09/21/22 09/20/22 History multivitamin (Multiple Vitamins 1 tab PO QAM 01/20/22 09/21/22 09/21/22 History tablet) atenolol 25 mg tablet 12.5 mg PO QPM 09/16/22 09/21/22 09/20/22 History cefpodoxime 200 mg tablet 200 mg PO BID #20 tabs 09/16/22 09/21/22 09/21/22 Rx oxycodone 5 mg tablet 5 mg PO Q4H PRN pain #20 tabs 09/16/22 09/21/22 09/21/22 07:00 Rx polyethylene glycol 3350 17 gram 17 g PO DAILY PRN while taking 09/16/22 09/21/22 Unknown Rx oral powder packet (Miralax) oxycodone/opioids #30 ea warfarin 5 mg tablet 5 mg PO QPM 09/16/22 09/21/22 09/20/22 History clopidogrel 75 mg tablet 75 mg PO QAM 09/21/22 09/21/22 09/21/22 History docusate sodium 100 mg capsule 100 mg PO BID 09/21/22 09/21/22 09/21/22 History (Colace) donepezil 10 mg tablet 10 mg PO QPM 09/21/22 09/21/22 09/20/22 History nitroglycerin 0.4 mg sublingual 0.4 mg sublingual Q5M PRN Chest 09/21/22 09/21/22 Unknown History tablet (Nitrostat) Pain Allergies Allergy/AdvReac Type Severity Reaction Status Date / Time acetaminophen Allergy Intermediate ALGY-Hives Verified 09/16/22 13:25 PFSH Acute PFSH: Medical History (Updated 09/21/22 @ 17:12 by Waldo Doyle DO) Anemia Anticoagulant long-term use Warfarin ASHD (arteriosclerotic heart disease) CVA (cerebral vascular accident) GERD (gastroesophageal reflux disease) Hyperlipidemia Ischemic cardiomyopathy MARCELO (obstructive sleep apnea) Pulmonary HTN Secondary Surgical History (Updated 09/21/22 @ 17:12 by Waldo Doyle DO) S/P angioplasty with stent S/P CABG (coronary artery bypass graft) S/P hernia repair S/P mitral valve replacement Mechanical mitral valve S/P rotator cuff repair Family History Mother Hypertension CAD (coronary artery disease) Family/Other CAD (coronary artery disease) MATERNAL UNCLE Myocardial infarction Sister Diabetes Social History Smoking and tobacco status: never smoked Alcohol intake: never Lives independently: Yes Marital status: / service: No Current occupational status: retired Current gender identity: Male Marie/Caodaism: Zoroastrian Vitals/I&O/Wt Last Vital Signs Temp 97.2 F L 09/21/22 10:08 Pulse 78 09/21/22 11:15 Resp 15 09/21/22 11:15 BP 117/59 09/21/22 11:15 Pulse Ox 94 09/21/22 11:15 O2 Del Method 09/21/22 11:15 Weight last 48 hrs Weight 64.864 kg Physical Exam Narrative: S1, S2 Systolic murmur Hemodynamically stable Abdomen nontender Hemoglobin Doing well on room air Nonfocal neuro exam Pleasant during evaluation Appropriate mood and affect No signs of cellulitis Resting comfortably in the bed Data : 09/22/22 04:45 09/22/22 04:45 A&P Assessment and plan (1) Acute UTI: (2) Supratherapeutic INR: (3) Abnormal CT of the abdomen: Plan Supratherapeutic INR patient takes Coumadin for his mechanical mitral valve His INR has to be between 2.5-3.5 Monitor for now Hold Coumadin for next 48 hours No need of reversal of Coumadin affect Patient is hemodynamic stable No active bleed Iliopsoas hematoma Monitor H&H for now Will use CPAP for tonight for his sleep apnea history Daughter is the DPOA Family is asking if he can get kyphoplasty or L2 compression fracture surgery during this hospitalization because it is very hard to control his INR I will speak with Dr. Tsang in the morning Attestations Medical Necessity Statement*: More than 2 midnights anticipated for management of L2 compression fracture, supratherapeutic INR Time Spent in Patient Care: 40 Coding Level of Care Code Acute Contract Preparer for Chg Fwd Diagnoses Acute UTI N39.0 Supratherapeutic INR R79.[address] of the abdomen R93.5
[2022-09-21 14:38] LABS: Lactic Acid level (Lactate) 0.8 mmol/L (0.5-2.2)
[2022-09-21 14:42] LABS: Add Urine Microscopic? YES; Amorphous Sediment Urine 1+ /hpf; Bacteria Urine TRACE /hpf; Bilirubin Urine Neg (Negative); Blood Urine 3+ (Negative); Glucose Urine UA Norm (Normal); Ketones Urine 1+ (Negative); Leukocyte Esterase Urine Negative (Negative); Nitrate Urine Negative (Negative); Protein Urine Trace (Negative); RBC Urine >100 /hpf (0-2); Squamous Epithelial Cell Urine 0-4 /hpf (0-5); Urine Appearance Cloudy (CLEAR); Urine Color Yellow (Yellow); Urobilinogen Urine Norm (Negative); pH Urine 5 (5-7)
[2022-09-21 14:43] LABS: Add Urine Culture? Yes; Hyaline Casts Urine 0-4 /lpf
[2022-09-21] MEDS: tamsulosin 0.4 mg Capsule PO (18:07)
[2022-09-21] MEDS: donepezil 5 MG Tablet 10 MG PO (18:07)
[2022-09-21] MEDS: sodium chloride 0.9% 1,000 ML 75 ML IV (18:07)
[2022-09-21] MEDS: finasteride 5 mg Tablet PO (18:08)
[2022-09-21] MEDS: atenolol 50 mg Tablet 12.5 MG PO (18:08)
[2022-09-21 21:55] LABS: Hematocrit 29.8 % (42.0-52.0); Hemoglobin 9.6 g/dL (11.7-16.6)
[2022-09-22] VITALS (14 sets, daily range): BP systolic 100–148; BP diastolic 55–74; PULSE 59–75; RESP 13–18; TEMP 36.6–36.8; O2SAT 92–98
[2022-09-22] MEDS: oxyCODONE 5 mg IR Tab/Cap PO ×2 (00:29→20:58)
[2022-09-22] MEDS: morphine IR 15 mg Tablet PO ×2 (03:36→09:41)
[2022-09-22 05:42] LABS: Basophils % 0.1 %; Eosinophils # 0.2 10^3/uL (0.0-0.8); Eosinophils % 2.6 %; Hematocrit 30.2 % (42.0-52.0); Hemoglobin 9.6 g/dL (11.7-16.6); Lymphocytes # 0.9 10^3/uL (0.8-4.8); Lymphocytes % 10.3 %; Mean Corpuscular HGB Conc 31.8 g/dL (30.0-36.0); Mean Corpuscular Hemoglobin 29.4 pg (28.0-34.0); Mean Corpuscular Volume 92.6 fl (80-94); Mean Platelet Volume 10.7 fL (7.4-10.4); Monocytes # 0.7 10^3/uL (0.2-0.9); Monocytes % 7.7 %; Neutrophils # 7.19 10^3/uL (1.8-7.7); Neutrophils % 78.8 %; Nucleated Red Blood Cells % 0 %; Platelet Count 260 10^3/cmm (130-400); Red Blood Count 3.26 10^6/uL (4.1-5.3); Red Cell Distribution Width 14.4 % (12.1-15.1); White Blood Count 9.1 10^3/uL (4.0-10.0)
[2022-09-22] MEDS: ferrous sulfate EC 325 mg Tablet PO (05:59)
[2022-09-22] MEDS: pantoprazole DR 40 mg Tablet PO (05:59)
[2022-09-22 06:10] LABS: Anion Gap 12.6 (5-19); Blood Urea Nitrogen 32 mg/dL (8-23); Calcium 9.2 mg/dL (8.5-10.5); Carbon Dioxide 23 mmol/L (22-29); Chloride 106 mmol/L (98-107); Glucose 98 mg/dL (65-115); Magnesium 2.1 mg/dL (1.7-2.3); Osmolality Calculated 293 mOsm/kg (285-295); Potassium 3.6 mmol/L (3.5-5.1); Sodium 138 mmol/L (136-145)
[2022-09-22 06:19] LABS: Creatinine Clr Calc Pharmacy 37.8494
[2022-09-22 08:36] LABS: INR 6.01 (0.8-1.2)
[2022-09-22] MEDS: tamsulosin 0.4 mg Capsule PO ×2 (09:09→16:44)
--- NOTE | 2022-09-22 09:34 | P.CONIM_ITS ---
Providers/Reason For Consult Consulting Physician/Specialty*: Ortho Spine Reason for Consult*: Back pain Attending Physician: Rc Abrams MD Primary Care Provider: Alicia Spicer MD History of Present Illness History of Present Illness Jermaine Ambrosio is a 87 year old male who is very poor historian due to confusion. No family is present during the exam the nurse was present. Patient is complaining of back pain. Denies any specific injury states has been going on for a number of months. Most of the information is gleaned from the chart due to the patient's level of confusion. Movement seems to make his back pain worse. He does move both lower extremities with some discomfort worse on the right than the left. He appears comfortable. He has had a previous CT scan that shows progression based on the latest collapse of the L2 vertebral body which is now vertebral plana. Discussed with the nurse to reach out to the daughter and awaiting conversation regarding Mr. Villasenor condition. An extensive review of the patient's past medical history, surgical history, allergies, medications, family history, social history, and review of systems was completed Review of Systems Const: Reports: fatigue Eyes: Denies: change in vision ENMT: Denies: throat pain Card: Denies: chest pain Resp: Reports: dyspnea GI: Reports: abdominal pain : Denies: flank pain Musc: Reports: back pain Skin/Breast: Denies: rash Neuro: Reports: headache(s) Psych: Denies: anxiety Endo: Denies: polyuria Calvin/Lymph: Denies: easy bruising All/Imm: Denies: urticaria Medications/Allergies Home Medications Medication Instructions Recorded Confirmed Last Taken Type niacin 500 mg tablet 500 mg PO QPM 12/10/19 09/21/22 09/20/22 History omeprazole 20 mg capsule,delayed 20 mg PO QAM 12/10/19 09/21/22 09/21/22 History release quinapril 10 mg tablet 10 mg PO QAM 12/10/19 09/21/22 09/21/22 History rosuvastatin 20 mg tablet (Crestor) 20 mg PO QPM 12/10/19 09/21/22 09/15/22 History tamsulosin 0.4 mg capsule 0.4 mg PO BID 12/10/19 09/21/22 09/21/22 History ferrous sulfate 325 mg (65 mg 325 mg PO QAM 01/20/22 09/21/22 09/21/22 History iron) tablet finasteride 5 mg tablet 5 mg PO QPM 01/20/22 09/21/22 09/20/22 History multivitamin (Multiple Vitamins 1 tab PO QAM 01/20/22 09/21/22 09/21/22 History tablet) atenolol 25 mg tablet 12.5 mg PO QPM 09/16/22 09/21/22 09/20/22 History cefpodoxime 200 mg tablet 200 mg PO BID #20 tabs 09/16/22 09/21/22 09/21/22 Rx oxycodone 5 mg tablet 5 mg PO Q4H PRN pain #20 tabs 09/16/22 09/21/22 09/21/22 07:00 Rx polyethylene glycol 3350 17 gram 17 g PO DAILY PRN while taking 09/16/22 09/21/22 Unknown Rx oral powder packet (Miralax) oxycodone/opioids #30 ea warfarin 5 mg tablet 5 mg PO QPM 09/16/22 09/21/22 09/20/22 History clopidogrel 75 mg tablet 75 mg PO QAM 09/21/22 09/21/22 09/21/22 History docusate sodium 100 mg capsule 100 mg PO BID 09/21/22 09/21/22 09/21/22 History (Colace) donepezil 10 mg tablet 10 mg PO QPM 09/21/22 09/21/22 09/20/22 History nitroglycerin 0.4 mg sublingual 0.4 mg sublingual Q5M PRN Chest 09/21/22 09/21/22 Unknown History tablet (Nitrostat) Pain Allergies Allergy/AdvReac Type Severity Reaction Status Date / Time acetaminophen Allergy Intermediate ALGY-Hives Verified 09/16/22 13:25 Current Medications Generic Name Dose Route Start Last Admin Trade Name Freq PRN Reason Stop Dose Admin Atenolol 12.5 mg 09/21/22 18:00 09/21/22 18:08 Atenolol 50 Mg Tablet PO 12.5 mg QPM ASUNCION Administration Donepezil HCl 10 mg 09/21/22 18:00 09/21/22 18:07 Donepezil 5 Mg Tablet PO 10 mg QPM ASUNCION Administration Ferrous Sulfate 325 mg 09/22/22 06:00 09/22/22 05:59 Ferrous Sulfate Ec 325 Mg Tablet PO 325 mg QAM ASUNCION Administration Finasteride 5 mg 09/21/22 18:00 09/21/22 18:08 Finasteride 5 Mg Tablet PO 5 mg QPM ASUNCION Administration Sodium Chloride 1,000 mls @ 75 mls/hr 09/21/22 16:44 09/21/22 18:07 Sodium Chloride 0.9% IV 75 mls/hr .[id number] ASUNCION Administration Morphine Sulfate 15 mg 09/21/22 16:44 09/22/22 03:36 Morphine Ir 15 Mg Tablet PO 15 mg Q6H PRN Administration pAIN Oxycodone HCl 5 mg 09/21/22 16:44 09/22/22 00:29 Oxycodone 5 Mg Ir Tab/Cap PO 5 mg Q4H PRN Administration pain Pantoprazole Sodium 40 mg 09/22/22 06:00 09/22/22 05:[address] 40 Mg Tablet PO 40 mg QAM ASUNCION Administration Tamsulosin HCl 0.4 mg 09/21/22 18:00 09/22/22 09:09 Tamsulosin 0.4 Mg Capsule PO 0.4 mg BID ASUNCION Administration PFSH Acute PFSH: Medical History (Updated 09/22/22 @ 10:24 by Rc Abrams MD) Anemia Anticoagulant long-term use Warfarin ASHD (arteriosclerotic heart disease) CVA (cerebral vascular accident) GERD (gastroesophageal reflux disease) Hyperlipidemia Ischemic cardiomyopathy MARCELO (obstructive sleep apnea) Pulmonary HTN Secondary Surgical History (Updated 09/21/22 @ 17:12 by Waldo Doyle DO) S/P angioplasty with stent S/P CABG (coronary artery bypass graft) S/P hernia repair S/P mitral valve replacement Mechanical mitral valve S/P rotator cuff repair Family History Mother Hypertension CAD (coronary artery disease) Family/Other CAD (coronary artery disease) MATERNAL UNCLE Myocardial infarction Sister Diabetes Social History Smoking and tobacco status: never smoked Alcohol intake: never Lives independently: Yes Marital status: / service: No Current occupational status: retired Current gender identity: Male Marie/Nondenominational: Religion Vitals/I&O/Wt Last Vital Signs Temp 97.8 F 09/22/22 07:56 Pulse 59 L 09/22/22 07:56 Resp 17 09/22/22 07:56 BP 145/67 09/22/22 07:56 Pulse Ox 94 09/22/22 07:56 O2 Del Method 09/22/22 07:56 O2 Flow Rate 2.5 09/21/22 22:55 09/21/22 09/22/22 09/22/22 22:59 06:59 14:59 Intake Total 240 / 2240 Output Total 150 / 150 250 / 400 Balance 90 / 2090 -250 / 1840 Weight last 48 hrs Weight 143 lb Physical Exam Narrative: On exam and he is alert but confused to place and time. Mild acute distress. He is tender with palpation through the low back. He is tender with percussion as well. He does move both lower extremities and follows commands has more pain on the right leg with hip flexion compared to the left. Is able to wiggle both toes and feet. Seems to have good sensation light touch. Calves are supple no medial thigh tenderness. He has negative logroll bilaterally. Dorsalis pedis and posterior tibial pulses are weak but palpable. Does not appear to have any palpable pain in the thoracic spine he moves both upper extremities at the shoulders elbows and wrist hands warm good cap refill radial pulses are palpable. HENMT: COMMON NORMALS: normocephalic and atraumatic HEAD & SCALP: normocephalic and atraumatic Resp: COMMON NORMALS: normal respiratory effort Cardio: COMMON NORMALS: regular rate and regular rhythm RATE: regular rate RHYTHM: regular rhythm GI: COMMON NORMALS: non-tender : COMMON NORMALS: Yes no CVA tenderness BLADDER/KIDNEY EXAM: Yes no CVA tenderness Back/Pelvis: COMMON NORMALS: no CVA tenderness Psych: COMMON NORMALS: cooperative OTHER: But confused Urinary Catheter Management: Le: Cath Placed During This Visit: yes Reason for Continuing Indwelling Catheter: Acute Urinary Retention or Obstruction Urinary Catheter Date of Insertion: 09/22/22 Urinary Catheter Time of Insertion: 02:35 Data : 09/22/22 04:45 09/22/22 04:45 CT Abd/Pel: Radiologist's impression: CT/CT abdomen pelvis w con* [id number] IMPRESSION: 1. Interval enlargement of the right iliopsoas muscle with minimal adjacent fat stranding, and peritoneal thickening overall concerning for intramuscular hemorrhage/hematoma. 2. 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 Correlate with any focal pain in this region. 3. Cholelithiasis without evidence of acute cholecystitis. 4. Colonic diverticulosis without signs of acute diverticulitis. 5. Left-sided nephrolithiasis. No signs of urinary obstruction. A&P Assessment and plan (1) Compression fracture of L2: We will wait for discussion with the daughter regarding treatment course. At this point his INR is too high to perform a kyphoplasty. He does have progression of the L2 vertebral body with collapse from the compression fracture to a vertebral plana. Patient is symptomatic based on exam. At this point we will await communication with family to determine a treatment plan. Discussed this with Dr. Zelaya at length he had agrees above-stated plan. More than 50% of the time spent with the patient today involved coordination of care, counseling and discussion of conservative versus surgical treatment options. Total amount of time spent with the patient was 30 minutes. Coding Level of Care Code New Pt Acute Certified Addiction Counselor for Chg Fwd Patient Type New History Detailed Exam Detailed Diagnoses Compression fracture of L2 S32.020A Time Spent (min) 30
[2022-09-22] MEDS: sodium chloride 0.9% 1,000 ML 75 ML IV (09:41)
--- NOTE | 2022-09-22 09:42 | PC.CHAP ---
Pastoral Care Encounter/Spiritual Assessment Type of Contact [] Declined manager embalmer funeral director visit [] Patient/Family/Request visit [] Outpatient visit [] Follow-up visit [] Physician referral [] Code/Alert [x] Routine visit [] Staff referral [] Actively dying [] Patient sleeping [] Family support [] [] Out of room [] Palliative care [] [x] Receiving care in room [] Pre-surgical visit [] Trauma [] Long length of stay [] ICU visit [] Other: Relational/Emotional Strength [x] Patient feels connected with others/family/visitors/staff [] Distress [] Loneliness/isolation [] Abandonment Spirituality of Patient [] Person of Marie [] Attends Oriental Orthodox of their Marie [] Believes in Prayer [] Reads Bible or Evangelical materials [] There are Spiritual issues to be addressed Countersinker Balance Screw Hole Interventions [] Prayer [] Active listening [] Non-anxious presence [] Spiritual/emotional support [] Crisis/trauma care [] Spiritual counseling [] Bereavement support [] Provided bereavement packet [] Provided Bible/devotional materials [] Provided toy/stuffed animal, coloring book to patient or family member [] Provided Communion [] Anointing/[place] [] Salvation [] Completed spiritual assessment [] Other: Impact on Illness or Injury [] Angry [] Fearful [] Anxious [] Often cries [] Exhaustion [] Unable to work [] Unable to attend amish [] Unable to walk/stand [] Unable to read [] Unable to drive [] Unable to eat/drink [] Unable to sleep [] Unable to be with family [] Patient intubated [] Other: Summary Time spent with patient
--- NOTE | 2022-09-22 10:22 | PM.PN ---
Subjective Subjective: No overnight events Asked Dr. Zelaya to evaluate the patient patient is not a good historian Dr. Currie is waiting for the family to be at the bedside INR 6 Hemodynamically stable Hemoglobin slightly lower Vitals/I&O/Wt Last Vital Signs Temp 97.8 F 09/22/22 07:56 Pulse 59 L 09/22/22 07:56 Resp 16 09/22/22 09:41 BP 145/67 09/22/22 07:56 Pulse Ox 94 09/22/22 07:56 O2 Del Method 09/22/22 07:56 O2 Flow Rate 2.5 09/21/22 22:55 09/21/22 09/22/22 09/22/22 22:59 06:59 14:59 Intake Total 240 / 2240 1360 / 1360 Output Total 150 / 150 250 / 400 Balance 90 / 2090 -250 / 1840 1360 / 1360 Weight last 48 hrs Weight 64.864 kg Physical Exam Narrative: Patient is laying supine No active complaints Looks dehydrated Abdomen soft No focal neuro exam No sign of cauda equina S1, S2 Currently on room air Urinary Catheter Management: Le: Cath Placed During This Visit: yes Reason for Continuing Indwelling Catheter: Acute Urinary Retention or Obstruction Urinary Catheter Date of Insertion: 09/22/22 Urinary Catheter Time of Insertion: 02:35 Data : 09/22/22 04:45 09/22/22 04:45 A&P Assessment and plan (1) Supratherapeutic INR: (2) Compression fracture of L2: Plan L2 compression fracture, asked Dr. Zelaya to evaluate him No signs of cauda equina Supratherapeutic INR Mechanical mitral valve With INR 2.5-3.5 INR currently 6 Retroperitoneal hematoma iliopsoas area, Monitor H&H Hemoglobin stable Discontinue IV fluids DVT prophylaxis with SCDs Hold Coumadin for now Mechanical mitral valve Full code Daughter is the DPOA Attestations Medical Necessity Statement*: Continue medical management Time Spent in Patient Care: 30 Coding Level of Care Code Acute Scene And Lighting Design Lecturer for Chg Fwd Diagnoses Supratherapeutic INR R79.1 Compression fracture of L2 S32.020A
--- NOTE | 2022-09-22 12:16 | NUR.SHIFT ---
Pt with malnutrition rt inadequate po intake and 5.9% wt loss in <1 month. Recommend adding Ensure Plus BID.
[2022-09-22] MEDS: donepezil 5 MG Tablet 10 MG PO (16:43)
[2022-09-22] MEDS: finasteride 5 mg Tablet PO (16:43)
[2022-09-22] MEDS: atenolol 50 mg Tablet 12.5 MG PO (16:44)
[2022-09-23] VITALS (97 sets, daily range): BP systolic 60–180; BP diastolic 48–84; PULSE 70–128; RESP 8–31; TEMP 36.4–36.9; O2SAT 82–100
[2022-09-23] MEDS: oxyCODONE 5 mg IR Tab/Cap PO ×3 (04:10→23:58)
[2022-09-23 05:27] LABS: Basophils % 0.1 %; Eosinophils # 0.3 10^3/uL (0.0-0.8); Eosinophils % 3.3 %; Hematocrit 29.5 % (42.0-52.0); Hemoglobin 9.2 g/dL (11.7-16.6); Lymphocytes # 0.9 10^3/uL (0.8-4.8); Lymphocytes % 9.9 %; Mean Corpuscular HGB Conc 31.2 g/dL (30.0-36.0); Mean Corpuscular Hemoglobin 28.9 pg (28.0-34.0); Mean Corpuscular Volume 92.8 fl (80-94); Mean Platelet Volume 10.7 fL (7.4-10.4); Monocytes # 0.7 10^3/uL (0.2-0.9); Monocytes % 7.3 %; Neutrophils # 7.28 10^3/uL (1.8-7.7); Neutrophils % 78.6 %; Nucleated Red Blood Cells % 0 %; Platelet Count 274 10^3/cmm (130-400); Red Blood Count 3.18 10^6/uL (4.1-5.3); Red Cell Distribution Width 14.5 % (12.1-15.1); White Blood Count 9.3 10^3/uL (4.0-10.0)
[2022-09-23 05:38] LABS: INR 3.74 (0.8-1.2)
[2022-09-23 05:48] LABS: Anion Gap 12.8 (5-19); Blood Urea Nitrogen 27 mg/dL (8-23); Calcium 9.4 mg/dL (8.5-10.5); Carbon Dioxide 23 mmol/L (22-29); Chloride 104 mmol/L (98-107); Glucose 95 mg/dL (65-115); Osmolality Calculated 287 mOsm/kg (285-295); Potassium 3.8 mmol/L (3.5-5.1); Sodium 136 mmol/L (136-145)
[2022-09-23] MEDS: pantoprazole DR 40 mg Tablet PO (05:58)
[2022-09-23] MEDS: ferrous sulfate EC 325 mg Tablet PO (05:58)
--- NOTE | 2022-09-23 07:42 | P.PN_ITS ---
Subjective Subjective: Patient still confused but still complains of back pain. no family present. Vitals/I&O/Wt Last Vital Signs Temp 98.1 F 09/23/22 04:00 Pulse 75 09/23/22 04:00 Resp 16 09/23/22 04:10 BP 129/72 09/23/22 04:00 Pulse Ox 95 09/23/22 04:00 O2 Del Method 09/23/22 04:00 O2 Flow Rate 2.5 09/21/22 22:55 09/22/22 09/23/22 09/23/22 22:59 06:59 14:59 Intake Total 950 / 2550 60 / 2610 Output Total 350 / 350 Balance 600 / 2200 60 / 2260 Weight last 48 hrs Weight 143 lb Physical Exam Narrative: Patient is alert no obvious distress confused. Moving both lower extremities warm to the touch about the feet and hands. Pulses are palpable. Moves both upper extremities without problems. Complains of palpable pain in the lower back. Calves are supple no medial thigh tenderness appears to have good sensation light touch. HENMT: COMMON NORMALS: normocephalic and atraumatic HEAD & SCALP: normocephalic and atraumatic Resp: COMMON NORMALS: normal respiratory effort Cardio: COMMON NORMALS: regular rate and regular rhythm RATE: regular rate RHYTHM: regular rhythm GI: COMMON NORMALS: Soft to palpation and non-tender PALPATION: Yes Soft to palpation : COMMON NORMALS: Yes no CVA tenderness BLADDER/KIDNEY EXAM: Yes no CVA tenderness Back/Pelvis: COMMON NORMALS: no CVA tenderness Psych: COMMON NORMALS: cooperative Urinary Catheter Management: Le: Cath Placed During This Visit: yes Reason for Continuing Indwelling Catheter: Acute Urinary Retention or Obstruc tion Urinary Catheter Date of Insertion: 09/22/22 Urinary Catheter Time of Insertion: 02:35 Data : 09/23/22 04:19 09/23/22 04:19 A&P Assessment and plan (1) Compression fracture of L2: INR is 3.7 this morning. Have not consulted with family regarding treatment plan. Discussed with Dr. Zelaya doing a kyphoplasty or proceeding with TLSO brace. We will discuss once contact is made with family. Encourage incentive spirometry for pulmonary toilet. Attestations Medical Necessity Statement*: defer to medical team Coding Level of Care Code Acute Patient Transporter for Chg Fwd Diagnoses Compression fracture of L2 S32.020A
--- NOTE | 2022-09-23 07:42 | CT_ITS ---
WS: [id number] CT ANGIOGRAPHY abdomen and pelvis HISTORY: Rectal bleeding and severe back pain. TECHNIQUE: CT angiogram is performed during IV injection. Reformation images reviewed. All CT scans a [facility] use at least one of these dose optimization techniques: automated exposure contro l; mA and/or kV adjustment per patient size (includes targeted exams where dose is matched to clinica l indication); or iterative reconstruction. CONTRAST: Omnipaque 350; 95 mL IV. DLP: 455.55 mGy.cm COMPARISON: 09/21/2022 Mild dependent changes at the lung bases. Small hiatal hernia. Abdominal aorta: Good opacification of the aorta with IV contrast. No aneurysm. No periaortic hematom a. Good opacification of the common iliac arteries. Mild plaque through the internal and external german ac arteries to the femoral arteries. SMA and celiac axis are well-opacified. Good opacification of th e renal arteries and good enhancement of the kidneys. Again noted is enlargement and heterogeneity within the RIGHT psoas muscle. Maximum diameter has not increased. Hematoma extends over a length of 15.8 cm beginning at the level of the lower pole RIGHT k idney extending to the iliacus muscle. Small amount of blood and soft tissue thickening along the RIG HT pararenal fascia. Soft tissue tissue stranding extends into the RIGHT inguinal region. There is a focal soft tissue hematoma at the RIGHT inguinal region with additional soft tissue stranding around the RIGHT hip. No GI tract obstruction. No focal area of abnormal blush-like enhancement within the stomach or small bowel. Mild fecal retention throughout the colon. Numerous diverticula. Active site of bleeding with in the colon would be difficult to identify as there is increased density within the lumen which may be from prior medicine or prior CT examinations. There is a small amount of soft tissue thickening ne ar the cecum and also the descending colon and sigmoid. Le catheter present in the bladder. No adenopathy identified. Stones within the gallbladder. No ev idence for acute cholecystitis. No free air. Soft tissue thickening along the RIGHT lateral lower thorax and abdomen. CT/CT angio abdomen pelvis [id number] IMPRESSION: 1. Patient has a known large RIGHT iliopsoas muscle hemorrhage. Hemorrhage has not increased in size since 09/21/2022. There is mild variable density now with in the hematoma. This represents is probably related to the phase of contrast i njection. There is a small amount of blood extending along the RIGHT pararenal fascia into the RIGHT inguinal region. 2. Extensive diverticular disease within the colon. No area of active colonic bleeding can be identified. 3. Le catheter in place. 4. Increased soft tissue thickening on the RIGHT lateral lower thorax abdomina l wall from prior subcutaneous bleeding likely. Notified Rc Abrams MD at 09/23/2022 8:52 AM.
[2022-09-23 08:13] LABS: Hematocrit 28.8 % (42.0-52.0); Hemoglobin 9.1 g/dL (11.7-16.6)
[2022-09-23] MEDS: iohexol 350 mg/mL 500 mL Btl (per mL) IV (08:25)
[2022-09-23] MEDS: phytonadione (ADULT) 10 MG in sodium chloride 0.9% 50 ML 153 MG IV (08:32)
[2022-09-23 08:56] LABS: Glucose Point of Care 101 mg/dL (70-110)
--- NOTE | 2022-09-23 08:58 | ECG_ITS ---
[facility] Test Date: 2022-09-23 Pat Name: Jermaine Ambrosio Department: Room: [facility] Gender: Male Golf Ball Winder: : [id number] Requested By: Rc Abrams Order Number: [id number] Karine MD: Kush Downs M.D. Measurements Intervals [place] Rate: 100 P: 99 CA: 153 QRS: -17 QRSD: 88 T: 58 QT: 348 QTc: 449 Interpretive Statements SINUS TACHYCARDIA NONSPECIFIC T-WAVE ABNORMALITY ABNORMAL RHYTHM ECG INTERPRETATION BASED ON A DEFAULT AGE OF 40 YEARS Compared to ECG 02/21/2022 13:21:34 T-wave abnormality now present Sinus bradycardia no longer present Left ventricular hypertrophy no longer present ST (T wave) deviation no longer present Electronically Signed On 09-23-2022 15:02:13 PAPER GUILLOTINE OPERATOR by Kush Downs M.D. [email or web address]
[2022-09-23 09:43] LABS: Hematocrit 32.1 % (42.0-52.0)
[2022-09-23] MEDS: morphine 4 mg/mL SDV 1 mL 2 MG IVP ×2 (09:43→11:36)
--- NOTE | 2022-09-23 10:14 | PC.NURSE ---
At approximately 0730 this morning ERP IMPLEMENTATION CONSULTANT notified me that patient appeared to have blood in his stool. A occult stool sample was obtained and noted to be maroon in color and large amount. Dr Abrams was notified and orders received for vitamin k, 1 unit PRBC, stat CT of abdomen, and stat H&H.
--- NOTE | 2022-09-23 10:21 | PC.NURSE ---
Addendum entered by Jimena Costello RN 09/23/22 11:32: Approximately 0840 Original Note: At approximately 0940 attempting to start second IV and patient became lethargic, agonal breathing, and eyes glazed over. Rapid response called and patients BP found to be 60's/40's. Oxygen applied by RT at 8L. Patient had large bloody BM as well. Dr. Abrams spoke with family and code status changed to AND. Orders received to move patient to ICU 6.
--- NOTE | 2022-09-23 11:13 | PC.NURSE ---
PT ARRIVED TO UNIT AT 0910 THIS MORNING. PT HYPOTENSIVE AND KEEPS YELLING OUT HELP ME. UPON PHYSICAL ASSESSMENT THIS PT WAS FOUND TO HAVE COPIOUS AMOUNTS OF LIQUID BLOODY BOWEL MOVEMENT. WITH THE ASSISTANCE OF NURSING STAFF, PT WAS CLEANED UP. HEATING PACKS WERE PLACED BEHIND PTS BACK PER PT REQUEST. PTS LUNG SOUNDS ARE DIMINSHED, HEART SR WITH A CLICK. ACTIVE BOWEL SOUNDS. PT HAS LARGE BRUISE ON HIS R SIDE. DR MERCEDES DOWN TO SEE PT, AN ORDER TO START LEVOPHED WAS GIVEN. LEVOPHED HAS BEEN STARTED AND PTS PRESSURES HAVE BEEN WNL. ORDERED PRN MORPHINE WAS GIVEN TO PT. PT IS NOW RESTING IN BED AND APPEARS TO BE COMFORTABLE. PTS FAMILY IS AT BEDSIDE. DR MERCEDES AND THE CONSULTED SURGEON DOWN TO SPEAK WITH FAMILY. FAMILY REQUESTS SOME TIME TO MAKE A DECISION. WILL CONTINUE TO MONITOR PT AND UPDATE DR NEEDED.
[2022-09-23] MEDS: lanolin oint 7 gm 1 APPLIC TOPICAL (11:36)
--- NOTE | 2022-09-23 12:19 | PM.PN ---
Subjective Subjective: This morning rapid response was called when patient had large episode of hematochezia Stat CTA abdomen pelvis did not show active bleeding Hematoma has not worsened Repeat H&H has not shown worsening of hemoglobin Blood pressure was low hence decision was made to transfer him to the ICU His blood glucose was 101 Patient was drowsy however with Trendelenburg his mentation improved Family was approached who made him DNR/DNI 2 family meetings were conducted Did discuss surgical option, colonoscopy, family is deciding on surgical intervention however they are leaning towards less aggressive interventions and keep him comfortable for now they will make the final decision Patient was seen 3 times today Vitals/I&O/Wt Last Vital Signs Temp 97.6 F 09/23/22 09:45 Pulse 114 H 09/23/22 09:45 Resp 16 09/23/22 11:36 BP 72/51 09/23/22 09:45 Pulse Ox 99 09/23/22 11:36 O2 Del Method 09/23/22 04:00 O2 Flow Rate 2.5 09/21/22 22:55 09/22/22 09/23/22 09/23/22 22:59 06:59 14:59 Intake Total 950 / 2550 60 / 2610 53.032 / 53.032 Output Total 350 / 350 150 / 150 Balance 600 / 2200 60 / 2260 -96.968 / -96.968 Physical Exam Narrative: Patient is moaning in pain complaining of abdominal pain Right flank petechial hemorrhage Bloody bowel movement noticed in his diaper Abdomen soft, nontender Slight tenderness in flanks Pale complexion Currently in ICU Family at the bedside Neuro exam limited He looks dehydrated and malnourished Demented No new focal deficit S1, S2 Urinary Catheter Management: Le: Cath Placed During This Visit: yes Reason for Continuing Indwelling Catheter: Acute Urinary Retention or Obstruction Urinary Catheter Date of Insertion: 09/22/22 Urinary Catheter Time of Insertion: 02:35 Data : 09/23/22 09:05 09/23/22 04:19 Micro: Microbiology 09/23/22 07:30 Occult Blood (FIT) - Final Stool 09/21/22 13:55 Urine Culture - Preliminary Urine,Clean Catch Enterococcus species A&P Assessment and plan (1) Compression fracture of L2: (2) Acute UTI: (3) Supratherapeutic INR: (4) Abnormal CT of the abdomen: (5) Hyperlipidemia: Qualifiers: Hyperlipidemia type: familial hypercholesterolemia Qualified Code(s): E78.01 - Familial hypercholesterolemia (6) Hematochezia: (7) Anticoagulant long-term use: (8) S/P mitral valve replacement: Plan L2 compression fracture, family still has to discuss with Dr. Coleman Family stating that he would not tolerate brace which they have tried in the past Hematochezia Hemorrhagic shock transfer to ICU start Levophed give him 1 unit PRBC, INR is 3.7 We will give him 1 unit FFP I did discuss with the family in detail with Dr. Downs pros and cons of reversing the effect of Coumadin they do understand he is at risk of stroke if he is not therapeutic He most likely has diverticular bleed Globin has not dropped significantly He was hypotensive and required Levophed Supratherapeutic INR: Reversing the effects of Coumadin Given 1 unit PRBC, will give 1 unit FFP and vitamin K Mitral valve mechanical valve was placed roughly 10 years ago Coumadin on hold Poor prognosis high chances for mortality and morbidity General surgery did talk with the family in detail They are not sure what they would opt for colonoscopy They are hoping that her diverticular bleed will stop on its own Attestations Medical Necessity Statement*: Continue ICU management Time Spent in Patient Care: 30 Coding Level of Care Code Acute Duplicator Punch Operator for Luchog Fwd Diagnoses Compression fracture of L2 S32.020A Acute UTI N39.0 Supratherapeutic INR R79.[address] of the abdomen R93.5 Hyperlipidemia E78.01 Hyperlipidemia type: familial hypercholesterolemia Hematochezia K92.1 Anticoagulant long-term use Z79.01 S/P mitral valve replacement Z95.2
--- NOTE | 2022-09-23 12:26 | PM.CONSULT ---
Providers/Reason For Consult Consulting Physician/Specialty*: General Surgery Luis Enrique Rueda MD, FACS, RPVI Reason for Consult*: Bleeding from the colon Attending Physician: Rc Abrams MD Primary Care Provider: Alicia Spicer MD History of Present Illness History of Present Illness Jermaine Ambrosio is a 87 year old male He was referred to the emergency room reveals a supratherapeutic INR. The patient is confused and delirious himself, all information obtained is from the conversation with the patient's family, and the primary team and nurses. It seems that the patient was suffering from worsening back pain for at least 2 to 3 weeks. Before this, he was completely independent, he was driving a car, he was only slightly forgetful per his family. He is nonambulatory for at least a week or so because of the back pain. He also become progressively more and more confused. He was admitted for observation, however, on the floor, he became hypotensive and had a large bloody bowel movement. Also, on admission CT scan demonstrated retroperitoneal hematoma. Repeat CT scan was performed which demonstrated stable size of a retroperitoneal hematoma. The patient had another large bloody bowel movement. He was transferred to the ICU, blood transfusion was initiated. His INR was not reversed, it is 3.7 today. Blood pressure went down as low as 60s systolic. Surgery was consulted to evaluate for colonoscopy. The patient has a history of mechanical valve placed about 20 years ago. He has multiple other medical problems as outlined below. Unable to obtain review of systems secondary to altered mental status Medications/Allergies Home Medications Medication Instructions Recorded Confirmed Last Taken Type niacin 500 mg tablet 500 mg PO QPM 12/10/19 09/21/22 09/20/22 History omeprazole 20 mg capsule,delayed 20 mg PO QAM 12/10/19 09/21/22 09/21/22 History release quinapril 10 mg tablet 10 mg PO QAM 12/10/19 09/21/22 09/21/22 History rosuvastatin 20 mg tablet (Crestor) 20 mg PO QPM 12/10/19 09/21/22 09/15/22 History tamsulosin 0.4 mg capsule 0.4 mg PO BID 12/10/19 09/21/22 09/21/22 History ferrous sulfate 325 mg (65 mg 325 mg PO QAM 01/20/22 09/21/22 09/21/22 History iron) tablet finasteride 5 mg tablet 5 mg PO QPM 01/20/22 09/21/22 09/20/22 History multivitamin (Multiple Vitamins 1 tab PO QAM 01/20/22 09/21/22 09/21/22 History tablet) atenolol 25 mg tablet 12.5 mg PO QPM 09/16/22 09/21/22 09/20/22 History cefpodoxime 200 mg tablet 200 mg PO BID #20 tabs 09/16/22 09/21/22 09/21/22 Rx oxycodone 5 mg tablet 5 mg PO Q4H PRN pain #20 tabs 09/16/22 09/21/22 09/21/22 07:00 Rx polyethylene glycol 3350 17 gram 17 g PO DAILY PRN while taking 09/16/22 09/21/22 Unknown Rx oral powder packet (Miralax) oxycodone/opioids #30 ea warfarin 5 mg tablet 5 mg PO QPM 09/16/22 09/21/22 09/20/22 History clopidogrel 75 mg tablet 75 mg PO QAM 09/21/22 09/21/22 09/21/22 History docusate sodium 100 mg capsule 100 mg PO BID 09/21/22 09/21/22 09/21/22 History (Colace) donepezil 10 mg tablet 10 mg PO QPM 09/21/22 09/21/22 09/20/22 History nitroglycerin 0.4 mg sublingual 0.4 mg sublingual Q5M PRN Chest 09/21/22 09/21/22 Unknown History tablet (Nitrostat) Pain Allergies Allergy/AdvReac Type Severity Reaction Status Date / Time acetaminophen Allergy Intermediate ALGY-Hives Verified 09/16/22 13:25 Current Medications Generic Name Dose Route Start Last Admin Trade Name Freq PRN Reason Stop Dose Admin Atenolol 12.5 mg 09/21/22 18:00 09/22/22 16:44 Atenolol 50 Mg Tablet PO 12.5 mg QPM ASUNCION Administration Donepezil HCl 10 mg 09/21/22 18:00 09/22/22 16:43 Donepezil 5 Mg Tablet PO 10 mg QPM ASUNCION Administration Ferrous Sulfate 325 mg 09/22/22 06:00 09/23/22 05:58 Ferrous Sulfate Ec 325 Mg Tablet PO 325 mg QAM ASUNCION Administration Finasteride 5 mg 09/21/22 18:00 09/22/22 16:43 Finasteride 5 Mg Tablet PO 5 mg QPM ASUNCION Administration Norepinephrine Bitartrate 4 mg 254 mls @ 0 mls/hr 09/23/22 09:30 09/23/22 09:51 / Dextrose IV 6 mcg/min .Q0M ASUNCION 22.86 mls/hr Titration Protocol Per Protocol Lanolin 1 applic 09/23/22 10:35 09/23/22 11:36 Lanolin Oint 7 Gm TOPICAL 1 applic PRN PRN Administration DRYNESS Morphine Sulfate 15 mg 09/21/22 16:44 09/22/22 09:41 Morphine Ir 15 Mg Tablet PO 15 mg Q6H PRN Administration pAIN Morphine Sulfate 2 mg 09/23/22 11:32 09/23/22 11:36 Morphine 4 Mg/Ml Sdv 1 Ml IVP 2 mg Q2H PRN Administration SEVERE PAIN Oxycodone HCl 5 mg 09/21/22 16:44 09/23/22 04:10 Oxycodone 5 Mg Ir Tab/Cap PO 5 mg Q4H PRN Administration pain Pantoprazole Sodium 40 mg 09/22/22 06:00 09/23/22 05:[address] 40 Mg Tablet PO 40 mg QAM ASUNCION Administration Tamsulosin HCl 0.4 mg 09/21/22 18:00 09/23/22 11:03 Tamsulosin 0.4 Mg Capsule PO Not Given BID ASUNCION PFSH Acute PFSH: Medical History (Updated 09/23/22 @ 12:22 by Rc Abrams MD) Anemia Anticoagulant long-term use Warfarin ASHD (arteriosclerotic heart disease) CVA (cerebral vascular accident) GERD (gastroesophageal reflux disease) Hyperlipidemia Ischemic cardiomyopathy MARCELO (obstructive sleep apnea) Pulmonary HTN Secondary Surgical History (Updated 09/21/22 @ 17:12 by Waldo Doyle DO) S/P angioplasty with stent S/P CABG (coronary artery bypass graft) S/P hernia repair S/P mitral valve replacement Mechanical mitral valve S/P rotator cuff repair Family History Mother Hypertension CAD (coronary artery disease) Family/Other CAD (coronary artery disease) MATERNAL UNCLE Myocardial infarction Sister Diabetes Social History Smoking and tobacco status: never smoked Alcohol intake: never Lives independently: Yes Marital status: / service: No Current occupational status: retired Current gender identity: Male Marie/Synagogue: [employer] Vitals/I&O/Wt Last Vital Signs Temp 97.6 F 09/23/22 09:45 Pulse 114 H 09/23/22 09:45 Resp 16 09/23/22 11:36 BP 72/51 09/23/22 09:45 Pulse Ox 99 09/23/22 11:36 O2 Del Method 09/23/22 04:00 O2 Flow Rate 2.5 09/21/22 22:55 09/22/22 09/23/22 09/23/22 22:59 06:59 14:59 Intake Total 950 / 2550 60 / 2610 53.032 / 53.032 Output Total 350 / 350 150 / 150 Balance 600 / 2200 60 / 2260 -96.968 / -96.968 Physical Exam Narrative: Normal physical general: [] Psych: Appears confused and delirious Eyes: [sclerae are white] Head/ENT: [normocephalic, symmetric] CV: [regular] pulse, [], no JVD Lungs: [symmetrical chest rise] Abdomen: [soft, ND, no palpable masses] Ext: [no obvious traumatic deformities] Skin: warm Urinary Catheter Management: Le: Cath Placed During This Visit: yes Reason for Continuing Indwelling Catheter: Acute Urinary Retention or Obstruction Urinary Catheter Date of Insertion: 09/22/22 Urinary Catheter Time of Insertion: 02:35 Data : 09/23/22 09:05 09/23/22 04:19 Micro: Microbiology 09/23/22 07:30 Occult Blood (FIT) - Final Stool 09/21/22 13:55 Urine Culture - Preliminary Urine,Clean Catch Enterococcus species A&P Assessment and plan (1) Hematochezia: (2) Compression fracture of L2: (3) Supratherapeutic INR: (4) S/P CABG (coronary artery bypass graft): (5) S/P angioplasty with stent: (6) Pulmonary HTN: (7) S/P mitral valve replacement: Plan We had a long discussion with Dr. Gonzales, and the patient's family. I explained that colonoscopy is indicated as well as reversal of the INR. Given his multiple medical problems and mechanical valve, this approach may lead to other possible complications including stroke after reversal of anticoagulation. However, the patient is severely hypotensive and may suffer a heart attack, stroke, organ ischemia from a low flow state. The patient's family agreed to proceed with transfusion of the FFP to at least partially reverse INR. We will reassess it after transfusion. They would like to take that time and think about colonoscopy and bowel prep. As patient is not oriented, not following commands, he most likely require placement of the NG tube to perform a bowel prep. He is 87-year-old and family thinks that it may be not his wishes to undergo such an aggressive treatment. I will reassess the patient's condition in an hour to when the family decides upon the course of action. If the patient's wishes as expressed by the power of chemical technician is to undergo no invasive procedures, I have respect it Coding Level of Care Code Acute Tech Ed/Woodshop Teacher for g Fwd Diagnoses Hematochezia K92.1 Compression fracture of L2 S32.020A Supratherapeutic INR R79.1 S/P CABG (coronary artery bypass graft) Z95.1 S/P angioplasty with stent Z95.820 Pulmonary HTN I27.20 S/P mitral valve replacement Z95.2
[2022-09-23] MEDS: cefTRIAXone 1,000 MG in sodium chloride 0.9% (plus) 50 ML 100 MG IV (16:44)
[2022-09-23] MEDS: donepezil 5 MG Tablet 10 MG PO (17:14)
[2022-09-23] MEDS: tamsulosin 0.4 mg Capsule PO (17:14)
[2022-09-23] MEDS: finasteride 5 mg Tablet PO (17:14)
[2022-09-23] MEDS: atenolol 50 mg Tablet 12.5 MG PO (17:15)
[2022-09-23] MEDS: morphine IR 15 mg Tablet PO (19:27)
[2022-09-24] VITALS (22 sets, daily range): BP systolic 85–153; BP diastolic 45–85; PULSE 68–88; RESP 10–21; TEMP 36.3–36.9; O2SAT 88–96
[2022-09-24] MEDS: morphine IR 15 mg Tablet PO (01:48)
[2022-09-24 04:33] LABS: Basophils % 0.2 %; Eosinophils # 0.3 10^3/uL (0.0-0.8); Eosinophils % 3.4 %; Hematocrit 30.8 % (42.0-52.0); Hemoglobin 9.9 g/dL (11.7-16.6); Lymphocytes # 1.1 10^3/uL (0.8-4.8); Lymphocytes % 10.8 %; Mean Corpuscular HGB Conc 32.1 g/dL (30.0-36.0); Mean Corpuscular Hemoglobin 29.3 pg (28.0-34.0); Mean Corpuscular Volume 91.1 fl (80-94); Mean Platelet Volume 10.8 fL (7.4-10.4); Monocytes # 0.7 10^3/uL (0.2-0.9); Monocytes % 6.9 %; Nucleated Red Blood Cells % 0 %; Platelet Count 249 10^3/cmm (130-400); Red Blood Count 3.38 10^6/uL (4.1-5.3); Red Cell Distribution Width 15.6 % (12.1-15.1); White Blood Count 9.7 10^3/uL (4.0-10.0)
[2022-09-24 04:52] LABS: INR 1.32 (0.8-1.2)
[2022-09-24 05:10] LABS: Anion Gap 11.9 (5-19); Blood Urea Nitrogen 28 mg/dL (8-23); Calcium 9.1 mg/dL (8.5-10.5); Carbon Dioxide 22 mmol/L (22-29); Chloride 108 mmol/L (98-107); Glucose 97 mg/dL (65-115); Osmolality Calculated 291 mOsm/kg (285-295); Potassium 3.9 mmol/L (3.5-5.1); Sodium 138 mmol/L (136-145)
[2022-09-24] MEDS: pantoprazole DR 40 mg Tablet PO (05:14)
[2022-09-24] MEDS: ferrous sulfate EC 325 mg Tablet PO (05:14)
[2022-09-24] MEDS: cefTRIAXone 1,000 MG in sodium chloride 0.9% (plus) 50 ML 100 MG IV (08:18)
[2022-09-24] MEDS: tamsulosin 0.4 mg Capsule PO ×2 (08:18→17:00)
--- NOTE | 2022-09-24 10:43 | P.PN_ITS ---
Subjective Subjective: Patient's mentation is much better today with use of ceftriaxone for UTI Hemoglobin stable at 9.9 No more episodes of hematochezia Levophed was turned off yesterday Currently hemodynamically stable Family does not want any surgical intervention He is DNR/DNI Referral sent to residential Vitals/I&O/Wt Last Vital Signs Temp 98.2 F 09/24/22 08:00 Pulse 80 09/24/22 08:00 Resp 16 09/24/22 08:00 BP 114/85 09/24/22 08:00 Pulse Ox 95 09/24/22 08:00 O2 Del Method 09/24/22 08:00 O2 Flow Rate 2.5 09/21/22 22:55 09/23/22 09/24/22 09/24/22 22:59 06:59 14:59 Intake Total 316 / 779.611 60 / 839.611 50 / 50 Output Total 600 / 750 500 / 1250 Balance -284 / 29.611 -440 / -410.389 50 / 50 Weight last 48 hrs Weight 68.3 kg Physical Exam Narrative: Patient is comfortable in his bed Hemodynamically stable Off Levophed Following commands Answer my questions appropriately Abdomen soft Lower extremity no swelling Currently he is on room air Able to follow my command Oriented to himself Urinary Catheter Management: Le: Cath Placed During This Visit: yes Reason for Continuing Indwelling Catheter: Accurate Measurement of Urinary Output in Critically Ill Patients Urinary Catheter Date of Insertion: 09/22/22 Urinary Catheter Time of Insertion: 02:35 Data : 09/24/22 04:02 09/24/22 04:02 Micro: Microbiology 09/23/22 07:30 Occult Blood (FIT) - Final Stool 09/21/22 13:55 Urine Culture - Preliminary Urine,Clean Catch Enterococcus species A&P Assessment and plan (1) Hematochezia: (2) Compression fracture of L2: (3) Supratherapeutic INR: (4) Abnormal CT of the abdomen: (5) Hyperlipidemia: Qualifiers: Hyperlipidemia type: familial hypercholesterolemia Qualified Code(s): E78.01 - Familial hypercholesterolemia (6) Pulmonary HTN: (7) MARCELO (obstructive sleep apnea): (8) Anticoagulant long-term use: (9) Ischemic cardiomyopathy: (10) S/P mitral valve replacement: Plan Hematochezia Iliopsoas hematoma Hemorrhagic shock: Resolved Off Levophed Effect of Coumadin has been reversed with 1 FFP, he has been given 2 unit PRBC Hemoglobin stable Hemodynamically stable Family had decided against any surgical intervention Patient is DNR/DNI Awaiting residential placement now L2 compression fracture not a candidate for surgical intervention Opioids for pain management UTI: Continue ceftriaxone Delirium related to UTI: Getting better Advance diet to clear liquid today requested speech therapy SCDs for DVT prophylaxis for now After discussion with the family I will resume his Coumadin Hematochezia episode has improved he does have mechanical mitral valve Day INR is subtherapeutic Attestations Medical Necessity Statement*: He can be transferred out of ICU if remains stable Time Spent in Patient Care: 30 Coding Level of Care Code Acute Green Chain Off Bearer for Chris Mejiad Diagnoses Hematochezia K92.1 Compression fracture of L2 S32.020A Supratherapeutic INR R79.[address] of the abdomen R93.5 Hyperlipidemia E78.01 Hyperlipidemia type: familial hypercholesterolemia Pulmonary HTN I27.20 MARCELO (obstructive sleep apnea) G47.33 Anticoagulant long-term use Z79.01 Ischemic cardiomyopathy I25.5 S/P mitral valve replacement Z95.2
[2022-09-24] MEDS: warfarin 5 mg Tablet PO (15:04)
[2022-09-24] MEDS: finasteride 5 mg Tablet PO (16:59)
[2022-09-24] MEDS: donepezil 5 MG Tablet 10 MG PO (16:59)
[2022-09-24] MEDS: atenolol 50 mg Tablet 12.5 MG PO (16:59)
[2022-09-24] MEDS: oxyCODONE 5 mg IR Tab/Cap PO ×2 (16:59→23:36)
--- NOTE | 2022-09-24 18:18 | PC.NURSE ---
This nurse called report to DARCIE Ren on [facility]. Patient to be transferred to room 251-2 by bed. This nurse notified patient's daughter.
--- NOTE | 2022-09-24 23:31 | PC.NURSE ---
Upon entering the room, pt fidgeting in the bed. Pt noted to have had a medium BM and was playing in it. Pt removed both of his IV's and his suero. No active bleeding noted. IV catheters intact.
[2022-09-25] VITALS (14 sets, daily range): BP systolic 112–149; BP diastolic 63–84; PULSE 68–89; RESP 17–19; TEMP 36.4–36.9; O2SAT 91–97
[2022-09-25] MEDS: morphine 4 mg/mL SDV 1 mL 2 MG IVP ×2 (04:04→19:23)
--- NOTE | 2022-09-25 04:09 | PC.NURSE ---
20G IV inserted to R AC x 2 attempts, successful, pt tolerated well. Flushes w/ease and good blood return noted.
[2022-09-25] MEDS: ferrous sulfate EC 325 mg Tablet PO (05:02)
[2022-09-25] MEDS: pantoprazole DR 40 mg Tablet PO (05:02)
[2022-09-25 05:29] LABS: Basophils % 0.4 %; Eosinophils # 0.3 10^3/uL (0.0-0.8); Eosinophils % 3.9 %; Hemoglobin 9.6 g/dL (11.7-16.6); Lymphocytes # 0.7 10^3/uL (0.8-4.8); Lymphocytes % 10.3 %; Mean Corpuscular Hemoglobin 28.8 pg (28.0-34.0); Mean Corpuscular Volume 90.1 fl (80-94); Mean Platelet Volume 10.3 fL (7.4-10.4); Monocytes # 0.5 10^3/uL (0.2-0.9); Monocytes % 7.5 %; Neutrophils # 5.34 10^3/uL (1.8-7.7); Neutrophils % 76.6 %; Nucleated Red Blood Cells % 0 %; Platelet Count 275 10^3/cmm (130-400); Red Blood Count 3.33 10^6/uL (4.1-5.3); Red Cell Distribution Width 15.2 % (12.1-15.1)
[2022-09-25 05:43] LABS: INR 1.26 (0.8-1.2)
[2022-09-25 05:49] LABS: Anion Gap 11.6 (5-19); Blood Urea Nitrogen 23 mg/dL (8-23); Calcium 9.3 mg/dL (8.5-10.5); Carbon Dioxide 23 mmol/L (22-29); Chloride 103 mmol/L (98-107); Glucose 102 mg/dL (65-115); Osmolality Calculated 282 mOsm/kg (285-295); Potassium 3.6 mmol/L (3.5-5.1); Sodium 134 mmol/L (136-145)
[2022-09-25] MEDS: oxyCODONE 5 mg IR Tab/Cap PO ×2 (05:51→16:43)
[2022-09-25] MEDS: tamsulosin 0.4 mg Capsule PO ×2 (09:31→16:43)
--- NOTE | 2022-09-25 10:05 | PC.SOCIAL ---
IMM Update pg 2 of IMM updated and reviewed w/ patient's daughter who is @ bedside. Copy provided and copy dated, initialed and placed in chart.
--- NOTE | 2022-09-25 10:17 | PM.PN ---
Subjective Subjective: Patient is doing well Hemoglobin stable Iron subtherapeutic I did explain to the family why he has not been bridged with heparin No more hematochezia Patient pulled his Le catheter However he is not able to void on his own Requested nurse to do another bladder scan and put a Le catheter back and if needed he is hemodynamically stable Awaiting assisted placement Vitals/I&O/Wt Last Vital Signs Temp 98.4 F 09/25/22 08:00 Pulse 77 09/25/22 08:00 Resp 18 09/25/22 08:00 BP 112/70 09/25/22 08:00 Pulse Ox 95 09/25/22 08:00 O2 Del Method 09/25/22 08:00 O2 Flow Rate 2.5 09/21/22 22:55 09/24/22 09/25/22 09/25/22 22:59 06:59 14:59 Intake Total 90 / 140 120 / 260 480 / 480 Output Total 725 / 725 Balance -635 / -585 120 / -465 480 / 480 Weight last 48 hrs Weight 67.313 kg Weight 67.313 kg Weight 68.3 kg Physical Exam Narrative: Awake and alert Very pleasant during my evaluation No new focal deficit Hydration status improving Abdomen soft Able to eat his breakfast S1, S2 No active back pain He has not been able to walk on his own He does have intact sensations Does not have typical cauda equina syndrome Urinary Catheter Management: Le: Cath Placed During This Visit: yes Reason for Continuing Indwelling Catheter: Accurate Measurement of Urinary Output in Critically Ill Patients Urinary Catheter Date of Insertion: 09/25/22 Urinary Catheter Time of Insertion: 09:52 Data : 09/25/22 04:52 09/25/22 04:52 Micro: Microbiology 09/21/22 13:55 Urine Culture - Final Urine,Clean Catch Enterococcus faecalis A&P Assessment and plan (1) Hematochezia: (2) Compression fracture of L2: (3) Pulmonary HTN: (4) MARCELO (obstructive sleep apnea): (5) Ischemic cardiomyopathy: (6) S/P mitral valve replacement: Plan Supratherapeutic INR has been reversed Bleeding has resolved Hemoglobin stable after 2 unit PRBC INR reversed with 1 unit FFP Family has agreed to start Coumadin current INR 1.2 UTI with Enterococcus faecalis Antibiotics have been changed today levofloxacin Diverticular hematochezia Bleeding stopped Status post 2 unit PRBC L2 fracture Concern for cauda equina patient has not been able to void spontaneously, back pain, not able to walk, not a good candidate for surgical intervention Awaiting assisted placement Currently on regular diet speech therapy has been completed Continue oxycodone along bowel regimen DNR/DNI Case of further worsening family might opt for hospice Attestations Medical Necessity Statement*: Continue medical manage Time Spent in Patient Care: 30 Coding Level of Care Code Acute Rn Maternal Child for Chris Maharaj Diagnoses Hematochezia K92.1 Compression fracture of L2 S32.020A Pulmonary HTN I27.20 MARCELO (obstructive sleep apnea) G47.33 Ischemic cardiomyopathy I25.5 S/P mitral valve replacement Z95.2
[2022-09-25] MEDS: warfarin 5 mg Tablet PO (15:17)
[2022-09-25] MEDS: donepezil 5 MG Tablet 10 MG PO (16:43)
[2022-09-25] MEDS: finasteride 5 mg Tablet PO (16:43)
[2022-09-25] MEDS: atenolol 50 mg Tablet 12.5 MG PO (16:43)
--- NOTE | 2022-09-25 19:26 | PC.NURSE ---
Pt yelling out help me, however is unable to communicate what he needs help with. When asked if he was in pain, states yes and that it is his legs. PRN Morphine administered per orders.
--- NOTE | 2022-09-25 21:50 | PC.NURSE ---
Pt pulled out IV to R AC. Upon assessment IV catheter tip is intact. Pt denies pain to site, no bleeding noted. Will restart IV when pt is calmer.
[2022-09-26] VITALS (14 sets, daily range): BP systolic 112–159; BP diastolic 69–89; PULSE 66–97; RESP 15–18; TEMP 36.3–36.8; O2SAT 93–95
--- NOTE | 2022-09-26 00:07 | PC.NURSE ---
Pt is currently resting in bed w/o s/sx of pain present or voiced. Pt has been up standing beside the bed several times this shift. One on one care and redirection provided. Pt remains confused on where he is located at what time of day it is.
--- NOTE | 2022-09-26 01:09 | PC.NURSE ---
Pt is yelling out for help, states that he is cold at this time. Pt provided warm blankets and room temperature adjusted.
[2022-09-26] MEDS: pantoprazole DR 40 mg Tablet PO (05:25)
[2022-09-26] MEDS: levoFLOXacin 750 mg Tablet PO (05:25)
[2022-09-26] MEDS: ferrous sulfate EC 325 mg Tablet PO (05:25)
[2022-09-26 05:27] LABS: Basophils % 0.4 %; Eosinophils # 0.2 10^3/uL (0.0-0.8); Eosinophils % 3.6 %; Hemoglobin 9.8 g/dL (11.7-16.6); Lymphocytes % 14.2 %; Mean Corpuscular HGB Conc 32.7 g/dL (30.0-36.0); Mean Corpuscular Hemoglobin 29.3 pg (28.0-34.0); Mean Corpuscular Volume 89.6 fl (80-94); Mean Platelet Volume 10.5 fL (7.4-10.4); Monocytes # 0.7 10^3/uL (0.2-0.9); Monocytes % 9.7 %; Neutrophils # 4.73 10^3/uL (1.8-7.7); Neutrophils % 70.6 %; Nucleated Red Blood Cells % 0 %; Platelet Count 261 10^3/cmm (130-400); Red Blood Count 3.35 10^6/uL (4.1-5.3); Red Cell Distribution Width 14.9 % (12.1-15.1); White Blood Count 6.7 10^3/uL (4.0-10.0)
[2022-09-26] MEDS: tamsulosin 0.4 mg Capsule PO ×2 (08:12→16:59)
[2022-09-26] MEDS: oxyCODONE 5 mg IR Tab/Cap PO ×2 (09:35→19:06)
--- NOTE | 2022-09-26 11:35 | P.PN_ITS ---
Subjective Subjective: Orthostasis positive We will give him 1 L bolus Otherwise patient is able to work with PT Family at the bedside Agreeable for group home placement Require Le catheter placement, failed voiding trial Vitals/I&O/Wt Last Vital Signs Temp 97.4 F L 09/26/22 07:53 Pulse 73 09/26/22 08:00 Resp 18 09/26/22 09:35 BP 151/77 09/26/22 07:53 Pulse Ox 95 09/26/22 08:00 O2 Del Method 09/26/22 08:00 O2 Flow Rate 2.5 09/21/22 22:55 09/25/22 09/26/22 09/26/22 22:59 06:59 14:59 Intake Total 720 / 1200 240 / 240 Output Total 1000 / 1000 400 / 1400 Balance -280 / 200 -400 / -200 240 / 240 Weight last 48 hrs Weight 69.173 kg Weight 67.313 kg Weight 67.313 kg Physical Exam Narrative: Patient is working with PT Awake and alert Oriented to himself No abdominal pain Looks slightly dehydrated No new focal deficit Has a Le catheter draining dilute urine Currently on room air Urinary Catheter Management: Le: Cath Placed During This Visit: yes Reason for Continuing Indwelling Catheter: Acute Urinary Retention or Obstruction Urinary Catheter Date of Insertion: 09/25/22 Urinary Catheter Time of Insertion: 09:52 Data : 09/26/22 04:34 09/25/22 04:52 A&P Assessment and plan (1) Hematochezia: (2) Compression fracture of L2: (3) Supratherapeutic INR: (4) Pulmonary HTN: (5) MARCELO (obstructive sleep apnea): (6) Anticoagulant long-term use: (7) Ischemic cardiomyopathy: (8) S/P mitral valve replacement: Plan This patient is currently awaiting group home placement L2 compression fracture conservative management Hematochezia: Improved diverticular bleed Family decided against any intervention including colonoscopy He received 2 units PRBC Hemoglobin has been stable Hematochezia improved Mechanical mitral valve Coumadin has been reinitiated, Trend INR Considering hematochezia episodes requiring blood transfusion decision was made not to bridge him with heparin He is DNR/DNI Awaiting placement Patient worked with PT today, orthostatic positive Attestations Medical Necessity Statement*: long term placement Time Spent in Patient Care: 30 Coding Level of Care Code Acute Oxygen Equipment Preparer for Chg Fwd Diagnoses Hematochezia K92.1 Compression fracture of L2 S32.020A Supratherapeutic INR R79.1 Pulmonary HTN I27.20 MARCELO (obstructive sleep apnea) G47.33 Anticoagulant long-term use Z79.01 Ischemic cardiomyopathy I25.5 S/P mitral valve replacement Z95.2
[2022-09-26] MEDS: sodium chloride 0.9% 1,000 ML 999 ML IV (12:23)
--- NOTE | 2022-09-26 12:24 | PC.NURSE ---
Dr. Abrams notified that patients blood pressure sitting up in chair was 69/48 with manual cuff. Patient was transferred back into bed and layed in supine position. Recheck was 96/54. Orders received for 1L NS bolus. Pt reports being dizzy.
[2022-09-26] MEDS: warfarin 5 mg Tablet PO (13:56)
[2022-09-26] MEDS: donepezil 5 MG Tablet 10 MG PO (16:58)
[2022-09-26] MEDS: atenolol 50 mg Tablet 12.5 MG PO (16:59)
[2022-09-26] MEDS: finasteride 5 mg Tablet PO (16:59)
[2022-09-26] MEDS: ziprasidone 20 mg/mL SDV 10 MG IM (18:16)
--- NOTE | 2022-09-26 18:18 | PC.NURSE ---
Patient bed alarm going off and found sitting on edge of bed with catheter not in place laying on floor.
--- NOTE | 2022-09-26 19:08 | PC.NURSE ---
Pt remains highly anxious, yelling please help me repeatedly. Pt does state he has pain in his legs and would like pain medication. PRN Oxy IR administered per orders.
[2022-09-26] MEDS: morphine 4 mg/mL SDV 1 mL 2 MG IVP (20:30)
--- NOTE | 2022-09-26 21:27 | PC.NURSE ---
Pt has yet to void this shift. Bladder scan estimates 200 ml of urine present. Le replaced per orders 16 fr via sterile technique. 175 ml of dark yellow urine returned w/moderate amt of sediment present. Statlock applied, bsdb lower than pt.
[2022-09-27] VITALS (8 sets, daily range): BP systolic 93–173; BP diastolic 56–87; PULSE 80–107; RESP 16–18; TEMP 36.3–36.6; O2SAT 94–97
--- NOTE | 2022-09-27 02:12 | PC.NURSE ---
Pt remains anxious yelling help me while removing his gown and blankets, then stating that he is cold. Pt redressed and warm blankets applied. Pt has been pulling at catheter at this time. Attempted education on catheter need and placement. Pt does not comprehend teaching.
[2022-09-27] MEDS: oxyCODONE 5 mg IR Tab/Cap PO ×2 (03:06→08:47)
[2022-09-27 05:03] LABS: Basophils % 0.5 %; Eosinophils # 0.3 10^3/uL (0.0-0.8); Eosinophils % 4.4 %; Hematocrit 29.4 % (42.0-52.0); Hemoglobin 9.6 g/dL (11.7-16.6); Lymphocytes # 0.8 10^3/uL (0.8-4.8); Lymphocytes % 13.1 %; Mean Corpuscular HGB Conc 32.7 g/dL (30.0-36.0); Mean Corpuscular Hemoglobin 29.2 pg (28.0-34.0); Mean Corpuscular Volume 89.4 fl (80-94); Mean Platelet Volume 10.5 fL (7.4-10.4); Monocytes # 0.6 10^3/uL (0.2-0.9); Monocytes % 9.8 %; Neutrophils # 4.56 10^3/uL (1.8-7.7); Neutrophils % 70.8 %; Nucleated Red Blood Cells % 0 %; Platelet Count 282 10^3/cmm (130-400); Red Blood Count 3.29 10^6/uL (4.1-5.3); Red Cell Distribution Width 14.9 % (12.1-15.1); White Blood Count 6.4 10^3/uL (4.0-10.0)
[2022-09-27] MEDS: ferrous sulfate EC 325 mg Tablet PO (05:08)
[2022-09-27] MEDS: levoFLOXacin 750 mg Tablet PO (05:09)
[2022-09-27] MEDS: pantoprazole DR 40 mg Tablet PO (05:09)
[2022-09-27 05:24] LABS: INR 1.38 (0.8-1.2)
[2022-09-27 05:31] LABS: Anion Gap 8.4 (5-19); Blood Urea Nitrogen 18 mg/dL (8-23); Calcium 9.4 mg/dL (8.5-10.5); Carbon Dioxide 25 mmol/L (22-29); Chloride 103 mmol/L (98-107); Glucose 93 mg/dL (65-115); Osmolality Calculated 278 mOsm/kg (285-295); Potassium 3.4 mmol/L (3.5-5.1); Sodium 133 mmol/L (136-145)
[2022-09-27] MEDS: tamsulosin 0.4 mg Capsule PO (08:48)
--- NOTE | 2022-09-27 08:48 | PC.SOCIAL ---
IMM Update pg 2 of IMM updated and reviewed w/ patient and his daughter. Copy provided and Copy in chart dated, and initialed.
--- NOTE | 2022-09-27 10:05 | P.DS_ITS ---
Discharge Providers Date of Admission: 09/22/22 10:24 Date of Discharge: September 27, 2022 Attending Provider at Admission: Rc Abrams MD Attending Provider at Discharge: Rc Abrams MD Primary Care Provider: Alicia Spicer MD Diagnoses at Discharge Discharge Diagnosis (1) Hematochezia: Status: Acute (2) Compression fracture of L2: Status: Acute (3) Supratherapeutic INR: Status: Acute (4) Pulmonary HTN: Status: Acute Permanent problem details: Secondary (5) MARCELO (obstructive sleep apnea): Status: Acute (6) Anticoagulant long-term use: Status: Acute Permanent problem details: Warfarin (7) Ischemic cardiomyopathy: Status: Acute (8) S/P mitral valve replacement: Status: Acute Permanent problem details: Mechanical mitral valve Reason for Visit Reason for Visit: Dr. Spicer sent for abnormal labs Hospital Course Hospital Course 87-year-old male who lives with his family, daughter is the DPOA present to the hospital for supratherapeutic INR INR was around 6 when he presented he was diagnosed with iliopsoas hematoma he remained hemodynamically stable, his INR was trending down however after 12 hours he started having hematochezia became vasovagal and hypotensive got transferred to ICU and required 2 unit PRBC, 1 unit FFP and Levophed. Multiple family meetings were conducted, family decided against surgical intervention, colonoscopy they were okay with reversal of INR w ith FFP. His hematochezia improved. CT scan did show diverticular bleed. They do not want any aggressive intervention. Patient is DNR/DNI. He also has L2 compression fracture Dr. Zelaya was consulted for surgical intervention but family decided against. He was managed medically with opioids. He has failed to void on his own as well however he has worked with physical therapy to some extent, does not have all the typical features of cauda equina. He is being discharged to a half-way. Family might opt for palliative/hospice care if he gets worse now onwards. He was treated for UTI during his hospitalization. Urine culture positive for Enterococcus faecalis. He only had 2 episodes of hematochezia that improved spontaneously. He has been started back on Coumadin. Family is aware that he can have recurrent episodes of intermittent lower GI bleed. Physical Exam Narrative: Patient is eating breakfast Awake and alert Oriented to himself No abdominal pain Looks slightly dehydrated No new focal deficit Has a Le catheter draining dilute urine Currently on room air Urinary Catheter Management: Le: Cath Placed During This Visit: yes Reason for Continuing Indwelling Catheter: Acute Urinary Retention or Obstruction Urinary Catheter Date of Insertion: 09/26/22 Urinary Catheter Time of Insertion: 21:26 Discharge Data Studies Completed and Pending Completed Studies During Hospitalization Category Date Time Status CT abdomen pelvis w con* [id number] Stat Cat Scan 09/21/22 10:30 Completed CTA abdomen pelvis [CT angio abdomen pelvis [id number]] Stat Cat Scan 09/23/22 07:42 Completed XR chest 1V portable [id number] Stat Exams 09/21/22 10:30 Completed Pending at discharge Category Date Time Status Prothrombin Time INR AM LABS Lab 09/28/22 04:00 Ordered Prothrombin Time INR AM LABS Lab 09/29/22 04:00 Ordered Radiology Impressions Abdomen/Pelvis CT 09/21/22 10:30 IMPRESSION: 1. Interval enlargement of the right iliopsoas muscle with minimal adjacent fat stranding, and peritoneal thickening overall concerning for intramuscular hemorrhage/hematoma. 2. 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 Correlate with any focal pain in this region. 3. Cholelithiasis without evidence of acute cholecystitis. 4. Colonic diverticulosis without signs of acute diverticulitis. 5. Left-sided nephrolithiasis. No signs of urinary obstruction. COMMENTS: Consistent with the [employer]'s Incidental Findings Committee white paper (J Am Evan Radiol 2018): Any incidental renal lesion less than 1 cm or classified as too small to characterize, or any incidental cystic renal lesion characterized as simple-appearing, is likely benign. No follow-up imaging is recommended for these lesions per consensus recommendations based on imaging criteria. ADDENDUM: 09/21/22 1130 THIS REPORT CONTAINS FINDINGS THAT MAY BE CRITICAL TO PATIENT CARE. The findings were verbally communicated via telephone conference with SHAHIDA Bolton at 11:26 AM COMMUNICATIONS CONSULTANT on 09/21/2022. The findings were acknowledged and understood. Chest X-Ray 09/21/22 10:30 Impression: Atherosclerosis. Abdomen/Pelvis CTA 09/23/22 07:42 IMPRESSION: 1. Patient has a known large RIGHT iliopsoas muscle hemorrhage. Hemorrhage has not increased in size since 09/21/2022. There is mild variable density now within the hematoma. This represents is probably related to the phase of contrast injection. There is a small amount of blood extending along the RIGHT pararenal fascia into the RIGHT inguinal region. 2. Extensive diverticular disease within the colon. No area of active colonic bleeding can be identified. 3. Le catheter in place. 4. Increased soft tissue thickening on the RIGHT lateral lower thorax abdominal wall from prior subcutaneous bleeding likely. Notified Rc Abrams MD at 09/23/2022 8:52 AM. Laboratory Results WBC 6.4 10^3/uL (4.0-10.0) 09/27/22 04:15 RBC 3.29 10^6/uL (4.1-5.3) L 09/27/22 04:15 Hgb 9.6 g/dL (11.7-16.6) L 09/27/22 04:15 Hct 29.4 % (42.0-52.0) L 09/27/22 04:15 MCV 89.4 fl (80-94) 09/27/22 04:15 MCH 29.2 pg (28.0-34.0) 09/27/22 04:15 MCHC 32.7 g/dL (30.0-36.0) 09/27/22 04:15 RDW 14.9 % (12.1-15.1) 09/27/22 04:15 Plt Count 282 10^3/cmm (130-400) 09/27/22 04:15 MPV 10.5 fL (7.4-10.4) H 09/27/22 04:15 Neut % (Auto) 70.8 % 09/27/22 04:15 Lymph % (Auto) 13.1 % 09/27/22 04:15 [place] % (Auto) 9.8 % 09/27/22 04:15 Eos % (Auto) 4.4 % 09/27/22 04:15 Baso % (Auto) 0.5 % 09/27/22 04:15 Neut # (Auto) 4.56 10^3/uL (1.8-7.7) 09/27/22 04:15 Lymph # (Auto) 0.8 10^3/uL (0.8-4.8) 09/27/22 04:15 [place] # (Auto) 0.6 10^3/uL (0.2-0.9) 09/27/22 04:15 Eos # (Auto) 0.3 10^3/uL (0.0-0.8) 09/27/22 04:15 Baso # (Auto) 0.0 10^3/uL (0.0-0.1) 09/27/22 04:15 Nucleated RBC % (auto) 0 % 09/27/22 04:15 Nucleated RBCs # 0.0 /100WBC 09/27/22 04:15 PT 17.30 SECONDS (12.1-14.9) H 09/27/22 04:15 INR 1.38 (0.8-1.2) H 09/27/22 04:15 Sodium 133 mmol/L (136-145) L 09/27/22 04:15 Potassium 3.4 mmol/L (3.5-5.1) L 09/27/22 04:15 Chloride 103 mmol/L (98-107) 09/27/22 04:15 Carbon Dioxide 25 mmol/L (22-29) 09/27/22 04:15 Anion Gap 8.4 (5-19) 09/27/22 04:15 BUN 18 mg/dL (8-23) 09/27/22 04:15 Creatinine 1.0 mg/dL (0.7-1.2) 09/27/22 04:15 GFR Calculation Not Reportable 09/27/22 04:15 Glucose 93 mg/dL (65-115) 09/27/22 04:15 POC Glucose 101 mg/dL (70-110) 09/23/22 08:54 Calculated Osmolality 278 mOsm/kg (285-295) L 09/27/22 04:15 Lactic Acid 2.5 mmol/L (0.5-2.2) H 09/21/22 10:25 Lactic Acid (Sepsis) 0.8 mmol/L (0.5-2.2) 09/21/22 13:54 Calcium 9.4 mg/dL (8.5-10.5) 09/27/22 04:15 Magnesium 2.1 mg/dL (1.7-2.3) 09/22/22 04:45 Urine Color Yellow (Yellow) 09/21/22 13:55 Urine Appearance Cloudy (CLEAR) A 09/21/22 13:55 Urine pH 5 (5-7) 09/21/22 13:55 Ur Specific [place] 1.010 (1.005-1.030) 09/21/22 13:55 Urine Protein Trace (Negative) 09/21/22 13:55 Urine Glucose (UA) Norm (Normal) 09/21/22 13:55 Urine Ketones 1+ (Negative) H 09/21/22 13:55 Urine Blood 3+ (Negative) H 09/21/22 13:55 Urine Nitrate Negative (Negative) 09/21/22 13:55 Urine Bilirubin Neg (Negative) 09/21/22 13:55 Urine Urobilinogen Norm mg/dL (Negative) 09/21/22 13:55 Ur Leukocyte Esterase Negative (Negative) 09/21/22 13:55 Urine RBC >100 /hpf (0-2) H 09/21/22 13:55 Urine WBC 10-15 /hpf (0-5) H 09/21/22 13:55 Ur Squamous Epith Cells 0-4 /hpf (0-5) H 09/21/22 13:55 Amorphous Sediment 1+ /hpf 09/21/22 13:55 Urine Bacteria Trace /hpf (NONE) 09/21/22 13:55 Hyaline Casts 0-4 /lpf H 09/21/22 13:55 Blood Type O Negative 09/23/22 08:03 Rho(D) Type Negative 09/23/22 08:03 Antibody Screen Negative 09/23/22 08:03 Crossmatch See Detail 09/23/22 08:03 Vitals Last Vital Signs Temp 97.7 F 09/27/22 07:34 Pulse 92 09/27/22 08:00 Resp 16 09/27/22 08:47 BP 173/87 09/27/22 07:34 Pulse Ox 95 09/27/22 08:00 O2 Del Method 09/27/22 08:00 O2 Flow Rate 2.5 09/21/22 22:55 Discharge Plan Discharge Patient Disposition: Xfer SNF Condition: Stable Prescriptions: New oxycodone-acetaminophen 10-325 mg tablet 1 tab PO Q8H PRN (Reason: pain) Qty: 20 0RF Senna-S 8.6-50 mg tablet 1 tab-cap PO DAILY Qty: 30 0RF levofloxacin 750 mg tablet 750 mg PO DAILY 3 Days Qty: 3 0RF Continued multivitamin [Multiple Vitamins] Tablet 1 tab PO QAM finasteride 5 mg tablet 5 mg PO QPM ferrous sulfate 325 mg (65 mg iron) tablet 325 mg PO QAM quinapril 10 mg tablet 10 mg PO QAM omeprazole 20 mg capsule,delayed release(DR/EC) 20 mg PO QAM rosuvastatin [Crestor] 20 mg tablet 20 mg PO QPM tamsulosin 0.4 mg capsule 0.4 mg PO BID niacin 500 mg tablet 500 mg PO QPM donepezil 10 mg tablet 10 mg PO QPM Nitrostat 0.4 mg Tablet, Sublingual 0.4 mg SUBLINGUAL Q5M PRN (Reason: Chest Pain) Rx Instructions: do not exceed 3 doses per episode Colace 100 mg Capsule 100 mg PO BID cefpodoxime 200 mg tablet 200 mg PO BID Qty: 10 0RF Rx Instructions: must administer with a meal/food warfarin 5 mg tablet 5 mg PO QPM Protocol: Dose Management Condition: Tuesday Dose/Route: 5 mg Instruction: 1 x 5 mg tablet Condition: Tuesday Dose/Route: 5 mg Instruction: 1 x 5 mg tablet Condition: Tuesday Dose/Route: 5 mg Instruction: 1 x 5 mg tablet Condition: Tuesday Dose/Route: 5 mg Instruction: 1 x 5 mg tablet Condition: Dose/Route: 5 mg Instruction: 1 x 5 mg tablet Condition: Tuesday Dose/Route: 5 mg Instruction: 1 x 5 mg tablet Condition: Tuesday Dose/Route: 5 mg Instruction: 1 x 5 mg tablet Protocol Text: Adjustment Start Date: 09/16/22 INR Value: 36.90 SECONDS INR Date: 09/16/22 Recheck Date: 09/23/22 atenolol 25 mg tablet 12.5 mg PO QPM oxycodone 5 mg tablet 5 mg PO Q4H PRN (Reason: pain) Qty: 20 0RF polyethylene glycol 3350 [Miralax] 17 gram powder in packet 17 g PO DAILY PRN (Reason: while taking oxycodone/opioids) Qty: 30 0RF Discontinued clopidogrel 75 mg tablet 75 mg PO QAM Discharge Orders: Discharge Order (Routine); Ordered 09/27/22 Ordered By: Rc Abrams Referrals: [facility] [Outside] Alicia Spicer MD [Primary Care Provider] - Patient Instructions: Oxycodone/Acetaminophen (By mouth), Laxative, Stool Softeners (By mouth), Levofloxacin (By mouth), Vertebral Compression Fracture (GEN) Discharge Attestations Time Spent in Discharge Care*: less than 30 min Quality Metrics Clinical Quality Measures [ No reported AMI, CVA or VTE this stay] Coding Level of Care Code Acute Chg FW DC note Diagnoses Hematochezia K92.1 Compression fracture of L2 S32.020A Supratherapeutic INR R79.1 Pulmonary HTN I27.20 MARCELO (obstructive sleep apnea) G47.33 Anticoagulant long-term use Z79.01 Ischemic cardiomyopathy I25.5 S/P mitral valve replacement Z95.2
[2022-09-27 11:29] LABS: SARS Covid-2 Antigen negative (Negative)
--- NOTE | 2022-09-27 12:23 | PC.CHAP ---
Pastoral Care Encounter/Spiritual Assessment Type of Contact [] Declined inspector conveyor line visit [] Patient/Family/Request visit [] Outpatient visit [] Follow-up visit [] Physician referral [] Code/Alert [x] Routine visit [] Staff referral [] Actively dying [] Patient sleeping [x] Family support [] [] Out of room [] Palliative care [] [] Receiving care in room [] Pre-surgical visit [] Trauma [] Long length of stay [] ICU visit [] Other: Relational/Emotional Strength [] Patient feels connected with others/family/visitors/staff [] Distress [] Loneliness/isolation [] Abandonment Spirituality of Patient [] Person of Marie [] Attends Church of their Marie [] Believes in Prayer [] Reads Bible or Tenriism materials [] There are Spiritual issues to be addressed Meal Room Hand Interventions [x] Prayer [] Active listening [] Non-anxious presence [] Spiritual/emotional support [] Crisis/trauma care [] Spiritual counseling [] Bereavement support [] Provided bereavement packet [] Provided Bible/devotional materials [] Provided toy/stuffed animal, coloring book to patient or family member [] Provided Communion [] Anointing/[place] [] Salvation [x] Completed spiritual assessment [] Other: Impact on Illness or Injury [] Angry [] Fearful [] Anxious [] Often cries [] Exhaustion [] Unable to work [] Unable to attend church [] Unable to walk/stand [] Unable to read [] Unable to drive [] Unable to eat/drink [] Unable to sleep [] Unable to be with family [] Patient intubated [] Other: Summary Time spent with patient
--- NOTE | 2022-09-27 16:04 | PC.OT ---
PATIENT TO D/C TODAY; HOLD OT TREATMENT.
== END 2022-09-27 14:00 | disposition skilled nursing facility (03) | DRG 555 ==
LOC: ER 15:40 → MEDSURG 16:34 → ICU 09-23 09:15 → MEDSURG 09-24 18:39
PROVIDERS: Admitting Provider Internal Medicine; Emergency Provider Family Medicine; PCP Family Medicine; Visit Provider Internal Medicine
DX: M79.81 Nontraumatic hematoma of soft tissue (principal); K57.91 Diverticulosis of intestine, part unspecified, without perforation or abscess with bleeding; R57.8 Other shock; E87.1 Hypo-osmolality and hyponatremia; N39.0 Urinary tract infection, site not specified; N17.9 Acute kidney failure, unspecified; M48.56XA Collapsed vertebra, not elsewhere classified, lumbar region, initial encounter for fracture; F05 Delirium due to known physiological condition; D68.32 Hemorrhagic disorder due to extrinsic circulating anticoagulants; T45.515A Adverse effect of anticoagulants, initial encounter; B95.2 Enterococcus as the cause of diseases classified elsewhere; I25.5 Ischemic cardiomyopathy; I95.9 Hypotension, unspecified; F03.90 Unspecified dementia, unspecified severity, without behavioral disturbance, psychotic disturbance, mood disturbance, and anxiety; N20.0 Calculus of kidney; K80.20 Calculus of gallbladder without cholecystitis without obstruction; I25.10 Atherosclerotic heart disease of native coronary artery without angina pectoris; G47.33 Obstructive sleep apnea (adult) (pediatric); E78.5 Hyperlipidemia, unspecified; K21.9 Gastro-esophageal reflux disease without esophagitis; I27.20 Pulmonary hypertension, unspecified; Z79.01 Long term (current) use of anticoagulants; Z95.2 Presence of prosthetic heart valve; Z79.891 Long term (current) use of opiate analgesic; Z79.02 Long term (current) use of antithrombotics/antiplatelets; Z95.5 Presence of coronary angioplasty implant and graft; Z95.1 Presence of aortocoronary bypass graft; Z86.73 Personal history of transient ischemic attack (TIA), and cerebral infarction without residual deficits; Z66 Do not resuscitate
CPT/HCPCS: 12345; 36415; 36416; 36430; 51702; 71045; 74174; 74177; 80048; 81001; 82274; 82962; 83605; 83735; 85014; 85018; 85025; 85610; 86850; 86900; 86920; 86927; 87077; 87086; 87186; 87426; 92523; 92610; 93005; 94660; 96360; 96361; 96372; 97116; 97162; 97165; 97530; 97760; 99285; G0378; J0696; J2270; J3430; J3486; J7030; J7060; P9016; P9017; Q9967

== ENCOUNTER 2022-10-31 09:49 | Emergency (ER) | payer MEDICARE, OTHER, SELFPAY ==
[2022-10-31 09:50] VITALS: BP 139/102; PULSE 99; RESP 15; O2SAT 96
--- NOTE | 2022-10-31 09:55 | W.ED.EPISTAX ---
HPI - Epistaxis General: Chief complaint: Epistaxis Stated complaint: NOSE BLEED RESOLVED Time Seen by Provider: 10/31/22 09:50 Source: patient and EMS Mode of arrival: EMS Limitations: no limitations History of Present Illness: 87-year-old male here from skilled nursing for a nosebleed he is on Coumadin he had an elevated INR on the 12th of 4.1 he has had his Coumadin held since then states that he had a nosebleed there roughly 2 hours ago that lasted 20 minutes that since resolved he has no bleeding at this time he has no complaints. Associated symptoms: Deny fever(s), headache(s) or vomiting Review of Systems Const: Denies: fever(s), chills, body aches or change in appetite Eyes: Denies: blurry vision or eye discomfort ENMT: Reports: epistaxis Card: Denies: chest pain Resp: Denies: dyspnea GI: Denies: abdominal pain, nausea, vomiting or diarrhea : Denies: dysuria Musc: Denies: neck pain or back pain Skin/Breast: Denies: rash Neuro: Denies: headache(s) Psych: Denies: depression Calvin/Lymph: Denies: easy bruising All/Imm: Denies: urticaria PFSH ED PFSH: Medical History Abnormal CT of the abdomen Anemia Anticoagulant long-term use Warfarin ASHD (arteriosclerotic heart disease) Compression fracture of L2 CVA (cerebral vascular accident) GERD (gastroesophageal reflux disease) Hematochezia Hyperlipidemia Ischemic cardiomyopathy MARCELO (obstructive sleep apnea) Pulmonary HTN Secondary Supratherapeutic INR Surgical History S/P angioplasty with stent S/P CABG (coronary artery bypass graft) S/P hernia repair S/P mitral valve replacement Mechanical mitral valve S/P rotator cuff repair Family History Mother Hypertension CAD (coronary artery disease) Family/Other CAD (coronary artery disease) MATERNAL UNCLE Myocardial infarction Sister Diabetes Social History Smoking and tobacco status: never smoked Alcohol intake: never Lives independently: Yes Marital status: / service: No Current occupational status: retired Current gender identity: Male Marie/Yazidi: Adventism Physical Exam Const: COMMON NORMALS: no acute distress and patient oriented x3 HENMT: OTHER: Dried blood in right nare with no active bleeding Eye: COMMON NORMALS: conjunctivae normal CONJUNCTIVA: Yes conjunctivae normal Neck/C-Spine: COMMON NORMALS: supple Chest: COMMONS NORMALS: normal inspection of the chest Resp: COMMON NORMALS: normal respiratory effort Cardio: COMMON NORMALS: regular rate RATE: regular rate GI: INSPECTION: Yes normal to inspection Extremity: COMMON NORMALS: normal to inspection Neuro: COMMON NORMALS: patient oriented x3 Psych: COMMON NORMALS: mental status grossly normal Skin: COMMON NORMALS: no rashes or lesions noted GENERAL SKIN EXAM: no rashes or lesions noted Course Vital Signs: Vital signs: Vital Signs Pulse Rate 100 10/31/22 11:10 Respiratory Rate 20 H 10/31/22 11:10 Blood Pressure 142/86 10/31/22 11:10 Pulse Oximetry 98 10/31/22 11:10 Oxygen Delivery Nh thod 10/31/22 09:50 MDM - Epistaxis Medical Decision Making Patient presents here with nosebleed that has been resolved he has had no bleeding here did recheck his INR its 2.4 currently he is stable for discharge back to the skilled nursing. Lab Data Laboratory Results PT 27.30 SECONDS (12.1-14.9) H 10/31/22 10:05 INR 2.49 (0.8-1.2) H 10/31/22 10:05 Discharge Plan Discharge Patient Disposition: Home Clinical Impression: Epistaxis Condition: Stable Prescriptions: No Action multivitamin [Multiple Vitamins] Tablet 1 tab PO QAM finasteride 5 mg tablet 5 mg PO QPM ferrous sulfate 325 mg (65 mg iron) tablet 325 mg PO QAM quinapril 10 mg tablet 10 mg PO QAM omeprazole 20 mg capsule,delayed release(DR/EC) 20 mg PO QAM rosuvastatin [Crestor] 20 mg tablet 20 mg PO QPM tamsulosin 0.4 mg capsule 0.4 mg PO BID niacin 500 mg tablet 500 mg PO QPM donepezil 10 mg tablet 10 mg PO QPM Nitrostat 0.4 mg Tablet, Sublingual 0.4 mg SUBLINGUAL Q5M PRN (Reason: Chest Pain) Rx Instructions: do not exceed 3 doses per episode Colace 100 mg Capsule 100 mg PO BID cefpodoxime 200 mg tablet 200 mg PO BID Qty: 10 0RF Rx Instructions: must administer with a meal/food oxycodone-acetaminophen 10-325 mg tablet 1 tab PO Q8H PRN (Reason: pain) Qty: 20 0RF Senna-S 8.6-50 mg tablet 1 tab-cap PO DAILY Qty: 30 0RF warfarin 5 mg tablet 5 mg PO QPM Protocol: Dose Management Condition: Tuesday Dose/Route: 5 mg Instruction: 1 x 5 mg tablet Condition: Tuesday Dose/Route: 5 mg Instruction: 1 x 5 mg tablet Condition: Tuesday Dose/Route: 5 mg Instruction: 1 x 5 mg tablet Condition: Tuesday Dose/Route: 5 mg Instruction: 1 x 5 mg tablet Condition: Dose/Route: 5 mg Instruction: 1 x 5 mg tablet Condition: Tuesday Dose/Route: 5 mg Instruction: 1 x 5 mg tablet Condition: Tuesday Dose/Route: 5 mg Instruction: 1 x 5 mg tablet Protocol Text: Adjustment Start Date: 09/16/22 INR Value: 36.90 SECONDS INR Date: 09/16/22 Recheck Date: 09/23/22 atenolol 25 mg tablet 12.5 mg PO QPM oxycodone 5 mg tablet 5 mg PO Q4H PRN (Reason: pain) Qty: 20 0RF polyethylene glycol 3350 [Miralax] 17 gram powder in packet 17 g PO DAILY PRN (Reason: while taking oxycodone/opioids) Qty: 30 0RF Discharge Orders: Discharge ED (Routine); Ordered 10/31/22 Ordered By: Chitra Solo Referrals: Alicia Spicer MD [Primary Care Provider] - Discharge Diet: Advance as tolerated Discharge Activity: Resume usual activity Patient Instructions: Nosebleed (ED) Coding Level of Care Code ED Drying Machine Operator Package Yarns for [place] Fwd Exam Comprehensive
[2022-10-31 10:27] LABS: INR 2.49 (0.8-1.2)
--- NOTE | 2022-10-31 10:34 | PC.NURSE ---
PLACED A NOSE CLAMP ON PT PER DR. MARY MOSCOSO.
--- NOTE | 2022-10-31 10:39 | PC.NURSE ---
REPORT GIVEN TO [facility] AT [facility].
[2022-10-31 11:10] VITALS: BP 142/86; PULSE 100; RESP 20; O2SAT 98
== END 2022-10-31 11:10 | disposition home or self-care (01) ==
PROVIDERS: Emergency Provider Emergency Medicine; PCP Family Medicine
DX: R04.0 Epistaxis (principal); Z79.01 Long term (current) use of anticoagulants; Z86.73 Personal history of transient ischemic attack (TIA), and cerebral infarction without residual deficits; E78.5 Hyperlipidemia, unspecified; Z95.1 Presence of aortocoronary bypass graft
CPT/HCPCS: 85610; 99283

== ENCOUNTER 2022-11-15 08:48 | Emergency (ER) | payer MEDICARE, OTHER, SELFPAY ==
[2022-11-15] VITALS (8 sets, daily range): BP systolic 115–157; BP diastolic 65–97; PULSE 87; RESP 12; TEMP 36.6; O2SAT 93–98; BMI 31.3
--- NOTE | 2022-11-15 09:07 | XRR_ITS ---
PROCEDURE INFORMATION: Exam: XR Right Shoulder Exam date and time: 11/15/2022 9:28 AM Age: 87 years old Clinical indication: Pain and injury or trauma; Fall; Blunt trauma (contusions or hematomas); Shoulder; Right TECHNIQUE: Imaging protocol: Radiologic exam of the Right shoulder. Views: 2 or more views. COMPARISON: CR XR chest 1V portable [id number] 09/21/2022 11:46 AM FINDINGS: Bones/joints: A suture anchor is noted in the proximal humerus. 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 No fracture, dislocation or subluxation. No periosteal reaction or supsicious bone lesion. Heart/Mediastinum: Mediastinal clips are noted. Soft tissues: No significant soft tissue swelling is appreciated. XR/XR shoulder RT min 2V* [id number] IMPRESSION: 1. No acute fracture. 2. 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
--- NOTE | 2022-11-15 09:07 | XRR_ITS ---
PROCEDURE INFORMATION: Exam: XR Chest Exam date and time: 11/15/2022 9:28 AM Age: 87 years old Clinical indication: Cough and dyspnea; Additional info: Dyspnea/cough TECHNIQUE: Imaging protocol: Radiologic exam of the chest. Views: 1 view. COMPARISON: CR XR chest 1V portable [id number] 09/21/2022 11:46 AM FINDINGS: Lungs: No pulmonary consolidation. Pleural spaces: No pleural effusion. No pneumothorax. Heart/Mediastinum: A prosthetic cardiac valve is noted. The cardiac silhouette is approximately unchanged given differences in patient positioning. No gross evidence of pneumomediastinum. Bones/joints: Median sternotomy wires and mediastinal clips are seen. No gross fracture. XR/XR chest 1V portable [id number] IMPRESSION: No acute cardiopulmonary abnormality identified.
--- NOTE | 2022-11-15 09:07 | CTR_ITS ---
PROCEDURE INFORMATION: Exam: CT Head Without Contrast Exam date and time: 11/15/2022 9:12 AM Age: 87 years old Clinical indication: Fall today with blunt trauma. Hematoma to right side of forehead. TECHNIQUE: Imaging protocol: Computed tomography of the head without contrast. Radiation optimization: All CT scans at this facility use at least one of these dose optimization techniques: automated exposure control; mA and/or kV adjustment per patient size (includes targeted exams where dose is matched to clinical indication); or iterative reconstruction. COMPARISON: CT head wo con* [id number] 09/16/2022 2:12 PM RADIATION DOSE METRICS: Total DLP (mGy-cm): 1012.58 FINDINGS: Brain: No acute intracranial hemorrhage. 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 Lacunar infarcts in the basal ganglia and cerebellum are unchanged from prior. No mass, mass effect or midline shift. There is no evidence of acute large vessel infarct. There is mild patchy subcortical and periventricular hypodensity, most commonly associated with small vessel ischemic disease of indeterminate age. Cerebral ventricles: The ventricles are prominent, compatible with moderate parenchymal volume loss. Paranasal sinuses: The visualized paranasal sinuses are clear. Mastoid air cells: No mastoid effusion. Orbital cavities: The visualized orbits are unremarkable. Bones/joints: No acute fracture is seen. Soft tissues: Small right frontal scalp hematoma. CT/CT head wo con* [id number] IMPRESSION: 1. Small right frontal scalp hematoma. 2. [id number] senescent changes as above. 3. No acute intracranial abnormality is identified.
[2022-11-15 09:18] LABS: Basophils # 0.1 10^3/uL (0.0-0.1); Basophils % 0.6 %; Eosinophils # 0.2 10^3/uL (0.0-0.8); Eosinophils % 2.1 %; Hematocrit 33.6 % (42.0-52.0); Hemoglobin 10.4 g/dL (11.7-16.6); Lymphocytes # 1.3 10^3/uL (0.8-4.8); Lymphocytes % 15.5 %; Mean Corpuscular Hemoglobin 27.1 pg (28.0-34.0); Mean Corpuscular Volume 87.5 fl (80-94); Mean Platelet Volume 10.6 fL (7.4-10.4); Monocytes # 0.7 10^3/uL (0.2-0.9); Monocytes % 8.1 %; Neutrophils # 5.93 10^3/uL (1.8-7.7); Neutrophils % 73.1 %; Nucleated Red Blood Cells % 0 %; Platelet Count 324 10^3/cmm (130-400); Red Blood Count 3.84 10^6/uL (4.1-5.3); Red Cell Distribution Width 16.1 % (12.1-15.1); White Blood Count 8.1 10^3/uL (4.0-10.0)
--- NOTE | 2022-11-15 09:42 | ED_ITS ---
HPI - Fall General: Chief Complaint: Fall Stated Complaint: FALL Time Seen by Provider: 11/15/22 08:50 Source: patient Mode of arrival: EMS History of Present Illness: 87-year-old male who fell at [facility] sometime is complaining of right shoulder pain he also has a hematoma on his head. does have some mild dementia he is not really able to tell me too much about it other than that he knew he fell. He denies any chest or abdominal pain. MD complaint: fall Onset (ago): minute(s) Fall from: out of bed Fall witnessed: no Place fall occurred: custodial/SNF Loss of consciousness: Unsure Prolonged down time: unclear Symptoms prior to fall: none Location of injury: head Associated symptoms-after fall: Reports difficulty walking; Denies abdominal pain, chest pain, confusion, headache(s), hematuria, lightheadedness, neck pain, numbness, short of breath or weakness Review of Systems General: Reports: ROS unobtainable due to mental status (Interval review of symptoms) Const: Denies: fever(s) or chills Card: Denies: chest pain or lightheadedness GI: Denies: abdominal pain : Denies: hematuria Musc: Reports: joint pain (Right shoulder); Denies: neck pain or back pain Neuro: Reports: difficulty walking; Denies: headache(s) or confusion PFS ED PFSH: Medical History Abnormal CT of the abdomen Anemia Anticoagulant long-term use Warfarin ASHD (arteriosclerotic heart disease) Compression fracture of L2 CVA (cerebral vascular accident) GERD (gastroesophageal reflux disease) Hematochezia Hyperlipidemia Ischemic cardiomyopathy MARCELO (obstructive sleep apnea) Pulmonary HTN Secondary Supratherapeutic INR Surgical History S/P angioplasty with stent S/P CABG (coronary artery bypass graft) S/P hernia repair S/P mitral valve replacement Mechanical mitral valve S/P rotator cuff repair Family History Mother Hypertension CAD (coronary artery disease) Family/Other CAD (coronary artery disease) MATERNAL UNCLE Myocardial infarction Sister Diabetes Social History Smoking and tobacco status: never smoked Alcohol intake: never Lives independently: Yes Marital status: / service: No Current occupational status: retired Current gender identity: Male Marie/Orthodoxy: Latter-Day Physical Exam Const: COMMON NORMALS: no acute distress GENERAL APPEARANCE: cooperative and comfortable ORIENTATION/CONSCIOUSNESS: Yes awake HENMT: COMMON NORMALS: normocephalic HEAD & SCALP: normocephalic OTHER: Hematoma left frontal area of the small abrasion no active bleeding Eye: COMMON NORMALS: Equal, round and reactive pupils present, EOMs intact bilaterally, conjunctivae normal and no scleral icterus CONJUNCTIVA: Yes conjunctivae normal PUPIL: Yes Equal, round and reactive pupils present Neck/C-Spine: COMMON NORMALS: full ROM, no lymphadenopathy, supple and no JVD Lymph: LYMPHATIC: no lymphadenopathy noted and no lymphedema noted Resp: COMMON NORMALS: normal respiratory effort, No retractions, No use of accessory muscles and clear to auscultation bilaterally AUSCULTATION: clear to auscultation bilaterally Cardio: COMMON NORMALS: no JVD, regular rate, regular rhythm and No murmurs present (Cardio) RATE: regular rate RHYTHM: regular rhythm GI: COMMON NORMALS: Soft to palpation and No hepatosplenomegaly present AUSCULTATION: Yes normoactive bowel sounds PALPATION: Yes Soft to palpation, No Tenderness to palpation present (GI), No Guarding due to palpation present (GI) and Yes No hepatosplenomegaly present Extremity: COMMON NORMALS: normal to inspection, capillary refill normal, no clubbing, cyanosis or edema, no calf tenderness and no pedal edema Skin: COMMON NORMALS: no rashes or lesions noted GENERAL SKIN EXAM: no rashes or lesions noted Course Vital Signs: Vital signs: Vital Signs Temperature 97.9 F 11/15/22 08:49 Pulse Rate 87 11/15/22 08:49 Respiratory Rate 12 11/15/22 08:49 Blood Pressure 135/74 11/15/22 09:30 Pulse Oximetry 97 11/15/22 09:30 Oxygen Delivery Me thod 11/15/22 09:23 MDM - Fall Medical Decision Making Labs and imaging unremarkable will transfer back to custodial monitor there. He is currently being treated for a cystitis as a Le in place. INR was done on 12/18 and was 2.49. Did not repeat it as he does not have any active bleeding and his CT of his head was negative he can continue on routine INR monitoring. We had initially ordered a UA however he is currently being treated for a cystitis at the custodial. The UA was canceled. His Le looked to have a lot of debris in the tube so the Le was replaced while he was here. Medical Records I reviewed the patient's medical records. Lab Data I reviewed the patient's lab results. 11/15/22 09:00 11/15/22 09:28 Radiology Impressions Chest X-Ray 11/15/22: IMPRESSION: No acute cardiopulmonary abnormality identified. Head CT 11/15/22: IMPRESSION: 1. Small right frontal scalp hematoma. 2. Mqwy-mx-mphbwymi senescent changes as above. 3. No acute intracranial abnormality is identified. Shoulder X-Ray 11/15/22: IMPRESSION: 1. No acute fracture. 2. 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 Laboratory Results WBC 8.1 10^3/uL (4.0-10.0) 11/15/22 09:00 RBC 3.84 10^6/uL (4.1-5.3) L 11/15/22 09:00 Hgb 10.4 g/dL (11.7-16.6) L 11/15/22 09:00 Hct 33.6 % (42.0-52.0) L 11/15/22 09:00 MCV 87.5 fl (80-94) 11/15/22 09:00 MCH 27.1 pg (28.0-34.0) L 11/15/22 09:00 MCHC 31.0 g/dL (30.0-36.0) 11/15/22 09:00 RDW 16.1 % (12.1-15.1) H 11/15/22 09:00 Plt Count 324 10^3/cmm (130-400) 11/15/22 09:00 MPV 10.6 fL (7.4-10.4) H 11/15/22 09:00 Neut % (Auto) 73.1 % 11/15/22 09:00 Lymph % (Auto) 15.5 % 11/15/22 09:00 Grand % (Auto) 8.1 % 11/15/22 09:00 Eos % (Auto) 2.1 % 11/15/22 09:00 Baso % (Auto) 0.6 % 11/15/22 09:00 Neut # (Auto) 5.93 10^3/uL (1.8-7.7) 11/15/22 09:00 Lymph # (Auto) 1.3 10^3/uL (0.8-4.8) 11/15/22 09:00 Grand # (Auto) 0.7 10^3/uL (0.2-0.9) 11/15/22 09:00 Eos # (Auto) 0.2 10^3/uL (0.0-0.8) 11/15/22 09:00 Baso # (Auto) 0.1 10^3/uL (0.0-0.1) 11/15/22 09:00 Nucleated RBC % (auto) 0 % 11/15/22 09:00 Nucleated RBCs # 0.0 /100WBC 11/15/22 09:00 Sodium Cancelled 11/15/22 09:00 Potassium Cancelled 11/15/22 09:00 Chloride Cancelled 11/15/22 09:00 Carbon Dioxide Cancelled 11/15/22 09:00 Anion Gap Cancelled 11/15/22 09:00 BUN Cancelled 11/15/22 09:00 Creatinine Cancelled 11/15/22 09:00 GFR Calculation Cancelled 11/15/22 09:00 Glucose Cancelled 11/15/22 09:00 Calculated Osmolality Cancelled 11/15/22 09:00 Calcium Cancelled 11/15/22 09:00 Total Bilirubin Cancelled 11/15/22 09:00 AST Cancelled 11/15/22 09:00 ALT Cancelled 11/15/22 09:00 Alkaline Phosphatase Cancelled 11/15/22 09:00 Total Protein Cancelled 11/15/22 09:00 Albumin Cancelled 11/15/22 09:00 Globulin Cancelled 11/15/22 09:00 Discharge Plan Discharge Patient Disposition: Home Clinical Impression: Accidental fall from bed, Dementia Condition: Stable Prescriptions: No Action multivitamin [Multiple Vitamins] Tablet 1 tab PO QAM finasteride 5 mg tablet 5 mg PO QPM ferrous sulfate 325 mg (65 mg iron) tablet 325 mg PO QAM quinapril 10 mg tablet 10 mg PO QAM omeprazole 20 mg capsule,delayed release(DR/EC) 20 mg PO QAM rosuvastatin [Crestor] 20 mg tablet 20 mg PO QPM tamsulosin 0.4 mg capsule 0.4 mg PO BID niacin 500 mg tablet 500 mg PO QPM donepezil 10 mg tablet 10 mg PO QPM Nitrostat 0.4 mg Tablet, Sublingual 0.4 mg SUBLINGUAL Q5M PRN (Reason: Chest Pain) Rx Instructions: do not exceed 3 doses per episode Colace 100 mg Capsule 100 mg PO BID cefpodoxime 200 mg tablet 200 mg PO BID Qty: 10 0RF Rx Instructions: must administer with a meal/food oxycodone-acetaminophen 10-325 mg tablet 1 tab PO Q8H PRN (Reason: pain) Qty: 20 0RF Senna-S 8.6-50 mg tablet 1 tab-cap PO DAILY Qty: 30 0RF warfarin 5 mg tablet 5 mg PO QPM Protocol: Dose Management Condition: Tuesday Dose/Route: 5 mg Instruction: 1 x 5 mg tablet Condition: Tuesday Dose/Route: 5 mg Instruction: 1 x 5 mg tablet Condition: Tuesday Dose/Route: 5 mg Instruction: 1 x 5 mg tablet Condition: Tuesday Dose/Route: 5 mg Instruction: 1 x 5 mg tablet Condition: Dose/Route: 5 mg Instruction: 1 x 5 mg tablet Condition: Tuesday Dose/Route: 5 mg Instruction: 1 x 5 mg tablet Condition: Tuesday Dose/Route: 5 mg Instruction: 1 x 5 mg tablet Protocol Text: Adjustment Start Date: 09/16/22 INR Value: 36.90 SECONDS INR Date: 09/16/22 Recheck Date: 09/23/22 atenolol 25 mg tablet 12.5 mg PO QPM oxycodone 5 mg tablet 5 mg PO Q4H PRN (Reason: pain) Qty: 20 0RF polyethylene glycol 3350 [Miralax] 17 gram powder in packet 17 g PO DAILY PRN (Reason: while taking oxycodone/opioids) Qty: 30 0RF Discharge Orders: Discharge ED (Routine); Ordered 11/15/22 Ordered By: Waldo Doyle Referrals: Alicia Spicer MD [Primary Care Provider] - Patient Instructions: Opioid Safety, Pain Management Activity Restrictions/Additional Instructions: You are seen today for a fall from bed to CT of the head and x-ray of the shoulder are all negative. We discharged back to the custodial. Continue routine medications and cares at the custodial. Coding Level of Care Code ED Fashion Journalist for Chg Fwd Exam Comprehensive
[2022-11-15 10:29] LABS: Alanine Aminotransferase 14 U/L (0-41); Albumin Level 2.9 g/dL (3.5-5.2); Alkaline Phosphatase 81 U/L (40-130); Anion Gap 14.2 (5-19); Aspartate Amino Transferase 27 U/L (0-40); Blood Urea Nitrogen 15 mg/dL (8-23); Calcium 9.3 mg/dL (8.5-10.5); Carbon Dioxide 21 mmol/L (22-29); Chloride 103 mmol/L (98-107); Globulin 3.3 g/dL (1.3-4.6); Glucose 94 mg/dL (65-115); Osmolality Calculated 279 mOsm/kg (285-295); Potassium 4.2 mmol/L (3.5-5.1); Sodium 134 mmol/L (136-145); Total Bilirubin 0.3 mg/dL (0.15-1.2); Total Protein 6.2 g/dL (6.6-8.7)
== END 2022-11-15 12:05 | disposition home or self-care (01) ==
PROVIDERS: Emergency Provider Family Medicine; PCP Family Medicine
DX: F03.90 Unspecified dementia, unspecified severity, without behavioral disturbance, psychotic disturbance, mood disturbance, and anxiety (principal); Z79.01 Long term (current) use of anticoagulants; Z86.73 Personal history of transient ischemic attack (TIA), and cerebral infarction without residual deficits; E78.5 Hyperlipidemia, unspecified; Z95.1 Presence of aortocoronary bypass graft; S00.01XA Abrasion of scalp, initial encounter; S00.03XA Contusion of scalp, initial encounter; W19.XXXA Unspecified fall, initial encounter; Y92.129 Unspecified place in nursing home as the place of occurrence of the external cause
CPT/HCPCS: 51702; 70450; 71045; 73030; 80053; 85025; 99285

== ENCOUNTER 2022-12-20 01:55 | Observation (INO) | payer MEDICARE, OTHER, SELFPAY ==
[2022-12-20] VITALS (58 sets, daily range): BP systolic 72–118; BP diastolic 31–87; PULSE 63–156; RESP 13–23; TEMP 37.2–38.2; O2SAT 75–100; BMI 18.3
--- NOTE | 2022-12-20 02:10 | W.ED.GENADLT ---
Documented by User: JAREN Jackson 12/20/22 17:29 HPI - General Adult General: Chief complaint: Urogenital-Male Stated complaint: urogenital injury Time Seen by Provider: 12/20/22 02:04 History of Present Illness: 87-year-old male patient was brought in from a [facility] in [place] for self removal of Suero catheter. Nurse at the ch[facility] was concerned about bleeding and possible injury to the distal penis. Patient does take warfarin routinely. Patient has Alzheimer's and history of atrial fib. Review of Systems : Reports: hematuria and other (Dislodgment of Suero catheter) PFS ED PFSH: Medical History Abnormal CT of the abdomen Anemia Anticoagulant long-term use Warfarin ASHD (arteriosclerotic heart disease) Compression fracture of L2 CVA (cerebral vascular accident) GERD (gastroesophageal reflux disease) Hematochezia Hyperlipidemia Ischemic cardiomyopathy MARCELO (obstructive sleep apnea) Pulmonary HTN Secondary Supratherapeutic INR Surgical History S/P angioplasty with stent S/P CABG (coronary artery bypass graft) S/P hernia repair S/P mitral valve replacement Mechanical mitral valve S/P rotator cuff repair Family History Mother Hypertension CAD (coronary artery disease) Family/Other CAD (coronary artery disease) MATERNAL UNCLE Myocardial infarction Sister Diabetes Social History Smoking and tobacco status: never smoked Alcohol intake: never Lives independently: Yes Marital status: / service: No Current occupational status: retired Current gender identity: Male Marie/Mormon: Jewish Physical Exam Const: COMMON NORMALS: alert HENMT: COMMON NORMALS: normocephalic HEAD & SCALP: normocephalic Chest: COMMONS NORMALS: normal inspection of the chest Resp: COMMON NORMALS: normal respiratory effort and clear to auscultation bilaterally AUSCULTATION: clear to auscultation bilaterally Cardio: RATE: tachycardic RHYTHM: abnormal rhythm GI: COMMON NORMALS: Soft to palpation and non-tender PALPATION: Yes Soft to palpation : PENIS: uncircumcised and other (No injury to distal penis, blood at the tip of penis) Extremity: COMMON NORMALS: normal to inspection Neuro: SENSORIUM/ORIENTATION: Yes alert Skin: COMMON NORMALS: turgor normal GENERAL SKIN EXAM: turgor normal Course Vital Signs: Vital signs: Vital Signs Temperature 99 F 12/20/22 04:09 Pulse Rate 85 12/20/22 16:03 Respiratory Rate 20 H 12/20/22 16:03 Blood Pressure 104/60 12/20/22 16:03 Pulse Oximetry 96 12/20/22 16:03 Oxygen Delivery Me thod 12/20/22 16:21 MDM - General Adult Medical Decision Making 87-year-old male patient was referred to the emergency department for displacement of his Suero catheter and bleeding. Patient takes warfarin and had pulled out his Suero catheter at the ch[facility]. Since then patient had blood at the tip of his penis and concern for injury to the penis. On exam there is no sign of injury to the penis patient does have blood to the meatus. Patient has a urgency to urinate. Patient does have a history of Alzheimer's. Differential diagnosis includes hematuria, blood clot in the bladder, BPH, urinary retention. Reviewed patient with Dr. Joyner who will assume care of patient on the end of my shift. Lab Data 12/20/22 02:17 12/20/22 02:17 Radiology Impressions Chest X-Ray 12/20/22 04:17 IMPRESSION: No focal acute pulmonary disease identified. Laboratory Results WBC 13.3 10^3/uL (4.0-10.0) H 12/20/22 02:17 RBC 4.18 10^6/uL (4.1-5.3) 12/20/22 02:17 Hgb 10.6 g/dL (11.7-16.6) L 12/20/22 02:17 Hct 35.1 % (42.0-52.0) L 12/20/22 02:17 MCV 84.0 fl (80-94) 12/20/22 02:17 MCH 25.4 pg (28.0-34.0) L 12/20/22 02:17 MCHC 30.2 g/dL (30.0-36.0) 12/20/22 02:17 RDW 16.8 % (12.1-15.1) H 12/20/22 02:17 Plt Count 398 10^3/cmm (130-400) 12/20/22 02:17 MPV 10.3 fL (7.4-10.4) 12/20/22 02:17 Neut % (Auto) 94.0 % 12/20/22 02:17 Lymph % (Auto) 3.4 % 12/20/22 02:17 Addison % (Auto) 1.9 % 12/20/22 02:17 Eos % (Auto) 0.1 % 12/20/22 02:17 Baso % (Auto) 0.3 % 12/20/22 02:17 Neut # (Auto) 12.54 10^3/uL (1.8-7.7) H 12/20/22 02:17 Lymph # (Auto) 0.5 10^3/uL (0.8-4.8) L 12/20/22 02:17 Addison # (Auto) 0.3 10^3/uL (0.2-0.9) 12/20/22 02:17 Eos # (Auto) 0.0 10^3/uL (0.0-0.8) 12/20/22 02:17 Baso # (Auto) 0.0 10^3/uL (0.0-0.1) 12/20/22 02:17 Nucleated RBC % (auto) 0 % 12/20/22 02:17 Nucleated RBCs # 0.0 /100WBC 12/20/22 02:17 PT 17.30 SECONDS (12.1-14.9) H 12/20/22 02:17 INR 1.37 (0.8-1.2) H 12/20/22 02:17 APTT 31.4 SECONDS (23.9-36.7) 12/20/22 02:17 Sodium 133 mmol/L (136-145) L 12/20/22 02:17 Potassium 4.1 mmol/L (3.5-5.1) 12/20/22 02:17 Chloride 100 mmol/L (98-107) 12/20/22 02:17 Carbon Dioxide 21 mmol/L (22-29) L 12/20/22 02:17 Anion Gap 16.1 (5-19) 12/20/22 02:17 BUN 16 mg/dL (8-23) 12/20/22 02:17 Creatinine 1.0 mg/dL (0.7-1.2) 12/20/22 02:17 GFR Calculation Not Reportable 12/20/22 02:17 Glucose 102 mg/dL (65-115) 12/20/22 02:17 Calculated Osmolality 277 mOsm/kg (285-295) L 12/20/22 02:17 Lactate 1.9 mmol/L (0.5-2.2) 12/20/22 05:06 Calcium 9.7 mg/dL (8.5-10.5) 12/20/22 02:17 Total Bilirubin 0.5 mg/dL (0.15-1.2) 12/20/22 02:17 AST 22 U/L (0-40) 12/20/22 02:17 ALT 11 U/L (0-41) 12/20/22 02:17 Alkaline Phosphatase 100 U/L (40-130) 12/20/22 02:17 Troponin T Gen 5 ng/L 60 ng/L (0-15) H 12/20/22 02:17 Total Protein 6.0 g/dL (6.6-8.7) L 12/20/22 02:17 Albumin 3.0 g/dL (3.5-5.2) L 12/20/22 02:17 Globulin 3.0 g/dL (1.3-4.6) 12/20/22 02:17 Blood Type O Negative 12/20/22 02:30 Rho(D) Type Negative 12/20/22 02:30 Antibody Screen Negative 12/20/22 02:30 Discharge Plan Discharge Patient Disposition: Admitted As Inpatient Admit Provider: Tavares Spicer Clinical Impression: Gross hematuria, Atrial fibrillation with RVR Condition: Stable Coding Level of Care Code ED Box Covering Machine Operator for Chg Fwd Documented by User: Frank Joyner DO 12/20/22 19:06 HPI - General Adult General: Chief complaint: Urogenital-Male Stated complaint: urogenital injury Time Seen by Provider: 12/20/22 02:04 [facility] ED PFSH: Medical History Abnormal CT of the abdomen Anemia Anticoagulant long-term use Warfarin ASHD (arteriosclerotic heart disease) Compression fracture of L2 CVA (cerebral vascular accident) GERD (gastroesophageal reflux disease) Hematochezia Hyperlipidemia Ischemic cardiomyopathy MARCELO (obstructive sleep apnea) Pulmonary HTN Secondary Supratherapeutic INR Surgical History S/P angioplasty with stent S/P CABG (coronary artery bypass graft) S/P hernia repair S/P mitral valve replacement Mechanical mitral valve S/P rotator cuff repair Family History Mother Hypertension CAD (coronary artery disease) Family/Other CAD (coronary artery disease) MATERNAL UNCLE Myocardial infarction Sister Diabetes Social History Smoking and tobacco status: never smoked Alcohol intake: never Lives independently: Yes Marital status: / service: No Current occupational status: retired Current gender identity: Male Marie/Mormon: Jewish Course Vital Signs: Vital signs: Vital Signs Temperature 99 F 12/20/22 04:09 Pulse Rate 85 12/20/22 16:03 Respiratory Rate 20 H 12/20/22 16:03 Blood Pressure 104/60 12/20/22 16:03 Pulse Oximetry 96 12/20/22 16:03 Oxygen Delivery Me thod 12/20/22 16:21 MDM - General Adult Medical Decision Making 87-year-old male patient was referred to the emergency department for displacement of his Suero catheter and bleeding. Patient takes warfarin and had pulled out his Suero catheter at the ch[facility]. Since then patient had blood at the tip of his penis and concern for injury to the penis. On exam there is no sign of injury to the penis patient does have blood to the meatus. Patient has a urgency to urinate. Patient does have a history of Alzheimer's. Differential diagnosis includes hematuria, blood clot in the bladder, BPH, urinary retention. Reviewed patient with Dr. Joyner who will assume care of patient on the end of my shift. This patient was originally seen by JAREN Patel. I agree with his history, evaluation, and initial management.The patient was started on Diltiazem for signficant RVR with afib. His rate is somewhat improved to the 110s, but he is maxed out on the diltiazem drip. Suero catheter could not be placed by multiple nurse attempts in the ER. Because of this, urology will be consulted later this morning. He continues to pass some clot. His INR is only 1.37. Hb is 10.6. lactate is 1.9. He will go to the [facility] pending urology evaluation and potential management of the suero in the ER. Lab Data 12/20/22 02:17 12/20/22 02:17 Radiology Impressions Chest X-Ray 12/20/22 04:17 IMPRESSION: No focal acute pulmonary disease identified. Laboratory Results WBC 13.3 10^3/uL (4.0-10.0) H 12/20/22 02:17 RBC 4.18 10^6/uL (4.1-5.3) 12/20/22 02:17 Hgb 10.6 g/dL (11.7-16.6) L 12/20/22 02:17 Hct 35.1 % (42.0-52.0) L 12/20/22 02:17 MCV 84.0 fl (80-94) 12/20/22 02:17 MCH 25.4 pg (28.0-34.0) L 12/20/22 02:17 MCHC 30.2 g/dL (30.0-36.0) 12/20/22 02:17 RDW 16.8 % (12.1-15.1) H 12/20/22 02:17 Plt Count 398 10^3/cmm (130-400) 12/20/22 02:17 MPV 10.3 fL (7.4-10.4) 12/20/22 02:17 Neut % (Auto) 94.0 % 12/20/22 02:17 Lymph % (Auto) 3.4 % 12/20/22 02:17 Addison % (Auto) 1.9 % 12/20/22 02:17 Eos % (Auto) 0.1 % 12/20/22 02:17 Baso % (Auto) 0.3 % 12/20/22 02:17 Neut # (Auto) 12.54 10^3/uL (1.8-7.7) H 12/20/22 02:17 Lymph # (Auto) 0.5 10^3/uL (0.8-4.8) L 12/20/22 02:17 Addison # (Auto) 0.3 10^3/uL (0.2-0.9) 12/20/22 02:17 Eos # (Auto) 0.0 10^3/uL (0.0-0.8) 12/20/22 02:17 Baso # (Auto) 0.0 10^3/uL (0.0-0.1) 12/20/22 02:17 Nucleated RBC % (auto) 0 % 12/20/22 02:17 Nucleated RBCs # 0.0 /100WBC 12/20/22 02:17 PT 17.30 SECONDS (12.1-14.9) H 12/20/22 02:17 INR 1.37 (0.8-1.2) H 12/20/22 02:17 APTT 31.4 SECONDS (23.9-36.7) 12/20/22 02:17 Sodium 133 mmol/L (136-145) L 12/20/22 02:17 Potassium 4.1 mmol/L (3.5-5.1) 12/20/22 02:17 Chloride 100 mmol/L (98-107) 12/20/22 02:17 Carbon Dioxide 21 mmol/L (22-29) L 12/20/22 02:17 Anion Gap 16.1 (5-19) 12/20/22 02:17 BUN 16 mg/dL (8-23) 12/20/22 02:17 Creatinine 1.0 mg/dL (0.7-1.2) 12/20/22 02:17 GFR Calculation Not Reportable 12/20/22 02:17 Glucose 102 mg/dL (65-115) 12/20/22 02:17 Calculated Osmolality 277 mOsm/kg (285-295) L 12/20/22 02:17 Lactate 1.9 mmol/L (0.5-2.2) 12/20/22 05:06 Calcium 9.7 mg/dL (8.5-10.5) 12/20/22 02:17 Total Bilirubin 0.5 mg/dL (0.15-1.2) 12/20/22 02:17 AST 22 U/L (0-40) 12/20/22 02:17 ALT 11 U/L (0-41) 12/20/22 02:17 Alkaline Phosphatase 100 U/L (40-130) 12/20/22 02:17 Troponin T Gen 5 ng/L 60 ng/L (0-15) H 12/20/22 02:17 Total Protein 6.0 g/dL (6.6-8.7) L 12/20/22 02:17 Albumin 3.0 g/dL (3.5-5.2) L 12/20/22 02:17 Globulin 3.0 g/dL (1.3-4.6) 12/20/22 02:17 Blood Type O Negative 12/20/22 02:30 Rho(D) Type Negative 12/20/22 02:30 Antibody Screen Negative 12/20/22 02:30 Discharge Plan Discharge Patient Disposition: Admitted As Inpatient Admit Provider: Tavares Spicer Clinical Impression: Gross hematuria, Atrial fibrillation with RVR Condition: Stable Coding Level of Care Code ED Box Covering Machine Operator for Chris Maharaj
[2022-12-20 02:31] LABS: Basophils % 0.3 %; Eosinophils % 0.1 %; Hematocrit 35.1 % (42.0-52.0); Hemoglobin 10.6 g/dL (11.7-16.6); Lymphocytes # 0.5 10^3/uL (0.8-4.8); Lymphocytes % 3.4 %; Mean Corpuscular HGB Conc 30.2 g/dL (30.0-36.0); Mean Corpuscular Hemoglobin 25.4 pg (28.0-34.0); Mean Platelet Volume 10.3 fL (7.4-10.4); Monocytes # 0.3 10^3/uL (0.2-0.9); Monocytes % 1.9 %; Neutrophils # 12.54 10^3/uL (1.8-7.7); Nucleated Red Blood Cells % 0 %; Platelet Count 398 10^3/cmm (130-400); Red Blood Count 4.18 10^6/uL (4.1-5.3); Red Cell Distribution Width 16.8 % (12.1-15.1); White Blood Count 13.3 10^3/uL (4.0-10.0)
[2022-12-20] MEDS: LORazepam 2 mg/mL INJ 1 mL 0.5 MG IVP (02:33)
[2022-12-20] MEDS: sodium chloride 0.9% 500 ML 999 ML IV ×5 (02:33→13:14)
--- NOTE | 2022-12-20 02:39 | ECG_ITS ---
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 Measurements Intervals [place] Rate: 148 P: 16 IN: 115 QRS: -5 QRSD: 96 T: 118 QT: 290 QTc: 456 Interpretive Statements SINUS TACHYCARDIA WITH SHORT IN INTERVAL WITH PVC'S POSSIBLE ANTERIOR MYOCARDIAL INFARCTION , OF INDETERMINATE AGE [30 ms Q WAVE IN V3/V4, OR R < 0.2 mV IN V4] Compared to ECG 09/23/2022 08:58:44 Myocardial infarct finding now present T-wave abnormality no longer present Electronically Signed On 12-20-2022 8:37:59 THERMO PROCESSOR by Felecia King M.D. [email or web address]
[2022-12-20 02:51] LABS: Alanine Aminotransferase 11 U/L (0-41); Alkaline Phosphatase 100 U/L (40-130); Anion Gap 16.1 (5-19); Aspartate Amino Transferase 22 U/L (0-40); Blood Urea Nitrogen 16 mg/dL (8-23); Calcium 9.7 mg/dL (8.5-10.5); Carbon Dioxide 21 mmol/L (22-29); Chloride 100 mmol/L (98-107); Creatinine Clr Calc Pharmacy 40.8233; Glucose 102 mg/dL (65-115); Osmolality Calculated 277 mOsm/kg (285-295); Potassium 4.1 mmol/L (3.5-5.1); Sodium 133 mmol/L (136-145); Total Bilirubin 0.5 mg/dL (0.15-1.2)
[2022-12-20 02:52] LABS: Troponin T (5th) Once 60 ng/L (0-15)
[2022-12-20 02:53] LABS: INR 1.37 (0.8-1.2)
[2022-12-20 02:54] LABS: Partial Thromboplastin Time 31.4 SECONDS (23.9-36.7)
[2022-12-20] MEDS: lidocaine 2% Urojet 20 mL TOPICAL (03:45)
[2022-12-20] MEDS: dilTIAZem 5 mg/mL SDV 5 mL 15 MG IVP (03:45)
--- NOTE | 2022-12-20 03:57 | PC.NURSE ---
Attempted CBI suero with no success. Attempted coude suero for manual irrigation with no success. notified
--- NOTE | 2022-12-20 04:17 | XRR_ITS ---
PROCEDURE INFORMATION: Exam: XR Chest Exam date and time: 12/20/2022 5:35 AM Age: 87 years old Clinical indication: Fever and other: Afib; Prior surgery; Surgery date: 6+ months; Surgery type: Open heart; Additional info: Fever, afib with rvr TECHNIQUE: Imaging protocol: Radiologic exam of the chest. Views: 1 view. COMPARISON: CR XR chest 1V portable [id number] 11/15/2022 9:28 AM FINDINGS: Lungs: Mild diffuse reticular changes of pulmonary interstitium. Negative for pulmonary consolidation. Pleural spaces: Unremarkable. No pleural effusion. No pneumothorax. Heart/Mediastinum: Suspect mitral valve replacement. Probable CABG. Unremarkable cardiac silhouette. Vasculature: Mild prominence of the aortic knob. Bones/joints: Unremarkable. XR/XR chest 1V portable [id number] IMPRESSION: No focal acute pulmonary disease identified.
[2022-12-20] MEDS: dilTIAZem 100 MG in sodium chloride 0.9% (add-van) 100 ML IV (04:20)
--- NOTE | 2022-12-20 04:52 | ECG_ITS ---
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 Measurements Intervals [place] Rate: 131 P: 0 IN: 0 QRS: 4 QRSD: 93 T: 77 QT: 312 QTc: 462 Interpretive Statements ATRIAL FIBRILLATION WITH RAPID VENTRICULAR RESPONSE WITH ABERRANT CONDUCTION OR VENTRICULAR PREMATURE COMPLEXES NONSPECIFIC T-WAVE ABNORMALITY ABNORMAL RHYTHM ECG Compared to ECG 12/20/2022 02:39:58 Ventricular premature complex(es) now present Aberrant conduction of supraventricular beat(s) now present T-wave abnormality now present Myocardial infarct finding no longer present Electronically Signed On 12-20-2022 8:35:20 APPLICATIONS ANALYST by Felecia King M.D. [id number]
--- NOTE | 2022-12-20 04:59 | P.HP_ITS ---
Providers/Chief Complaint Admitting Physician: Isaac Valenzuela MD Primary Care Provider: Alicia Spicer MD Chief Complaint: urogenital injury History of Present Illness Jermaine Ambrosio is a 87 year old male with a past medical history significant for coronary artery disease, stroke, ischemic cardiomyopathy, GERD, hyperlipidemia, obstructive sleep apnea, dementia, mechanical mitral heart valve on warfarin, and pulmonary hypertension who presents to the emergency department with gross hematuria after pulling out his Le catheter. Attempts were made to reinsert the catheter in the emergency department that were unsuccessful. Bladder scan was obtained and showed less than 300 mL. Patient appears to be a poor historian with baseline dementia however he does deny any fevers, chills, pain, nausea or emesis. Denies radiation. Denies aggravating or alleviating factors. In the emergency department, he was found to have atrial fibrillation with rapid ventricular rate requiring diltiazem drip. Review of Systems Narrative: A complete review of systems was obtained and is negative except as stated in HPI. Medications/Allergies Home Medications Medication Instructions Recorded Confirmed Last Taken Type niacin 500 mg tablet 500 mg PO DAILY@12/10/19 11/15/22 11/14/22 History omeprazole 20 mg capsule,delayed 20 mg PO DAILY@12/10/19 11/15/22 09/21/22 History release rosuvastatin 20 mg tablet (Crestor) 20 mg PO QPM 12/10/19 11/15/22 09/15/22 History tamsulosin 0.4 mg capsule 0.4 mg PO BID@12/10/19 11/15/22 09/21/22 History ferrous sulfate 325 mg (65 mg 325 mg PO .EVERY 2 DAYS 01/20/22 11/15/22 09/21/22 History iron) tablet finasteride 5 mg tablet 5 mg PO DAILY@01/20/22 11/15/22 09/20/22 History oxycodone 5 mg tablet 5 mg PO Q4H PRN pain #20 tabs 09/16/22 11/15/22 09/21/22 07:00 Rx docusate sodium 100 mg capsule 100 mg PO BID@09/21/22 11/15/22 09/21/22 History (Colace) donepezil 10 mg tablet 10 mg PO DAILY@09/21/22 11/15/2223 History nitroglycerin 0.4 mg sublingual 0.4 mg sublingual Q5M PRN Chest 09/21/22 11/15/22 Unknown History tablet (Nitrostat) Pain alprazolam 0.25 mg tablet (Xanax) 0.25 mg PO Q8H PRN Anxiety 11/15/22 11/15/22 Unknown History bisacodyl 10 mg rectal suppository 10 mg [place] DAILY PRN Constipation 11/15/22 11/15/22 Unknown History magnesium hydroxide 400 mg/5 mL 30 ml PO DAILY PRN Constipation 11/15/22 11/15/22 Unknown History oral suspension (Milk of Magnesia) morphine 15 mg tablet,extended 15 mg PO Q12H 11/15/22 11/15/22 Unknown History release polyethylene glycol 3350 17 gram 17 g PO DAILY PRN Constipation 11/15/22 11/15/22 Unknown History oral powder packet (Miralax) sennosides 8.6 mg tablet (senna) 8.6 mg PO DAILY PRN Constipation 11/15/22 11/15/22 Unknown History sertraline 50 mg tablet (Zoloft) 50 mg PO DAILY@19 11/15/22 11/15/22 Unknown History sodium phosphates 19 gram-7 118 ml [place] DAILY PRN Constipation 11/15/22 11/15/22 Unknown History gram/118 mL enema (Enema Disposable) sulfamethoxazole 800 1 tab PO BID@08,20 11/15/22 11/15/22 11/14/22 History mg-trimethoprim 160 mg tablet (Bactrim DS) warfarin 2.5 mg tablet 2.5 mg PO DAILY@17 11/15/22 11/15/22 Unknown History Allergies Allergy/AdvReac Type Severity Reaction Status Date / Time acetaminophen Allergy Intermediate ALGY-Hives Verified 12/20/22 02:15 PFSH Acute PFSH: Medical History (Updated 12/20/22 @ 05:46 by Isaac Valenzuela MD) Abnormal CT of the abdomen Anemia Anticoagulant long-term use Warfarin ASHD (arteriosclerotic heart disease) Compression fracture of L2 CVA (cerebral vascular accident) GERD (gastroesophageal reflux disease) Hematochezia Hyperlipidemia Ischemic cardiomyopathy MARCELO (obstructive sleep apnea) Pulmonary HTN Secondary Supratherapeutic INR Surgical History (Updated 02/06/23 @ 05:46 by Isaac Valenzuela MD) S/P angioplasty with stent S/P CABG (coronary artery bypass graft) S/P hernia repair S/P mitral valve replacement Mechanical mitral valve S/P rotator cuff repair Family History Mother Hypertension CAD (coronary artery disease) Family/Other CAD (coronary artery disease) MATERNAL UNCLE Myocardial infarction Sister Diabetes Social History Smoking and tobacco status: never smoked Alcohol intake: never Lives independently: Yes Marital status: / service: No Current occupational status: retired Current gender identity: Male Marie/Oriental Orthodox: Gnosticist Vitals/I&O/Wt Last Vital Signs Temp 99 F 12/20/22 04:09 Pulse 122 H 12/20/22 04:09 Resp 20 H 12/20/22 04:09 BP 94/60 12/20/22 04:09 Pulse Ox 92 12/20/22 04:09 O2 Del Method 12/20/22 03:09 12/19/22 12/19/22 12/20/22 14:59 22:59 06:59 Intake Total 501.25 / 501.25 Balance 501.25 / 501.25 Weight last 48 hrs Weight 54.431 kg Physical Exam Narrative: General: Patient is awake. Frail appearing. Head: Normocephalic. Atraumatic. EOM intact. Neck: No JVD. Cardiovascular: Irregularly irregular rhythm. No gallops. 3-4+ systolic murmur. No peripheral edema. Lungs: Clear to auscultation, no use of accessory muscles, no crackles or wheezes. Skin: No jaundice. No rashes. Abdomen: Normal bowel sounds, abdomen soft and nontender. Genito Urinary: Dried blood on meatus. Rectal: Rectal exam not performed since no symptoms indicated blood loss. Extremities: No cyanosis or clubbing. Musculoskeletal: No swollen or erythematous joints. Neurological: Moves all 4 extremities. No myoclonus. Data 12/20/22 02:17 12/20/22 02:17 A&P Assessment and plan (1) Gross hematuria: Chronic Le Secondary to traumatic Le removal Unable to pass Le in the emergency department Follow-up with urology later this morning, Dr. Barragan Hold anticoagulation for now (2) Atrial fibrillation with RVR: Continue diltiazem drip Telemetry monitoring (3) History of mitral valve replacement with mechanical valve: On warfarin, subtherapeutic on admission Hold further warfarin for now given gross hematuria Restart anticoagulation whenever clinically safe as he is at risk for valve thrombosis (4) Coronary artery disease: Not on statin Not on antiplatelet Nitroglycerin as needed (5) Dementia: Continue donepezil Plan DVT prophylaxis: SCDs CODE STATUS: DNR per facility paperwork Attestations Medical Necessity Statement*: Patient presents with gross hematuria secondary to traumatic Le removal with ED providers unable to place Le, patient also found to be in atrial fibrillation with rapid ventricular rate requiring diltiazem drip with expected hospitalization not to cross 2 midnights Coding Level of Care Code Acute Code for Chg Fwd Diagnoses Gross hematuria R31.0 Atrial fibrillation with RVR I48.91 History of mitral valve replacement with mechanical valve Z95.2 Coronary artery disease I25.10 Dementia F03.90
[2022-12-20 05:31] LABS: Lactate (Lactic Acid level) 1.9 mmol/L (0.5-2.2)
--- NOTE | 2022-12-20 08:26 | P.PN_ITS ---
Subjective Subjective: History and physical reviewed. Patient presented from skilled care, after pulling out Le catheter. Apparently he had significant hematuria, and a catheter could not be replaced. Urology has been consulted. Patient himself reports he has some lower abdominal discomfort currently. He was also found to be in atrial fibrillation with rapid ventricular rate, and Cardizem drip was initiated. Dementia impairs further history. Medications: Reviewed: Yes Vitals/I&O/Wt Last Vital Signs Temp 99 F 12/20/22 04:09 Pulse 94 12/20/22 07:53 Resp 23 H 12/20/22 07:53 BP 99/73 12/20/22 07:53 Pulse Ox 94 12/20/22 06:00 O2 Del Method 12/20/22 03:09 12/19/22 12/20/22 12/20/22 22:59 06:59 14:59 Intake Total 510.708 / 510.708 Balance 510.708 / 510.708 Weight last 48 hrs Weight 54.431 kg Physical Exam Narrative: General exam no distress, thin appearing Neck is supple Cardiovascular irregular, irregular with accelerated rate. Click is noted from prosthetic valve Lungs clear Abdomen is soft with positive bowel sounds Extremities no sinus clubbing or edema Neurologic: Confused but no obvious focal deficits Data 12/20/22 02:17 12/20/22 02:17 A&P Assessment and plan (1) Gross hematuria: Patient had Le at nursing facility. From my understanding this was pulled o ut causing significant hematuria. He is known to be on Coumadin for his prosthetic mitral valve. In the emergency department Le could not be replaced. Urology has been consulted. I will visit with them regarding when he can restart anticoagulation. At risk for stroke or valve thrombosis if anticoagulation is not restarted in the near future. (2) Atrial fibrillation with RVR: Currently on a Cardizem drip Blood pressures are somewhat soft Normal saline 500 cc bolus now Medicine reconciliation, and then determination will be made what medication to initiate orally for A-fib with RVR (3) History of mitral valve replacement with mechanical valve: History of mechanical mitral valve replacement. Likely will initiate Lovenox when anticoagulation can be reinitiated. Last INR 1.37 (4) Dementia: Has significant underlying dementia, making treatment difficult as patient does not understand all aspects. Plan Other medical problems as listed under his past medical history Allow natural SCDs for DVT prophylaxis currently, anticoagulation on hold secondary to h ematuria. Attestations Medical Necessity Statement*: Needs continued hospitalization for placement of Le, treatment of hematuria, and currently on IV drip of Cardizem for A-fib with RVR Coding Level of Care Code Established Pt Acute Code for Chg Fwd Patient Type Established Medical Decision Making High Complexity Diagnoses Gross hematuria R31.0 Atrial fibrillation with RVR I48.91 History of mitral valve replacement with mechanical valve Z95.2 Dementia F03.90
--- NOTE | 2022-12-20 08:31 | PC.NURSE ---
Gave patient breakfast tray.
--- NOTE | 2022-12-20 09:12 | PM.CONSULT ---
Providers/Reason For Consult Consulting Physician/Specialty*: Urology/follow Reason for Consult*: Urethral trauma, inability to pass catheter. Requesting Physician: Dr. Spicer Attending Physician: Dr. Spicer Primary Care Provider: Alicia Spicer MD History of Present Illness History of Present Illness Jermaine Ambrosio is a 87 year old male who resides in a skilled nursing for multiple medical problems including CAD, ischemic cardiomyopathy, GERD, obstructive sleep apnea, dementia, mechanical heart valve on chronic anticoagulation, pulmonary hypertension and more. He had been hospitalized back in September 2022 and was found to have urinary retention. A Le catheter was left indwelling and has been managed with a chronic catheter since that time. The exact etiology of his retention was unknown. He was very debilitated and was found to have other significant pathologic findings including L2 fracture, GI bleed, retroperitoneal hematoma all of which were managed conservatively based on the patient's overall status and the family's wishes This hospitalization was initiated after the patient forcibly withdrew his Le catheter and had bloody discharge. Attempts at placing a catheter were unsuccessful and I was consulted for further evaluation. Hemoglobin was near baseline at 10.6. Based on previous levels while hospitalized for GI bleed etc. Creatinine 1.0. INR 1.37. Current symptoms: He is complaining of his urgency to void without ability to do so. His bladder is somewhat distended and uncomfortable for him. Pertinent physical findings: Blood at the meatus. No evidence of butterfly hematoma. Uncircumcised phallus. Decision making: I spoke with his son Mihai regarding the findings. Reviewed that based on the flow of events that he likely has significant urethral trauma. Options were thoroughly discussed including bedside cystoscopy with attempted catheter placement, if unsuccessful trip to the operating room for reattempt and if unsuccessful then suprapubic tube, hold on any further treatment given his overall debilitated status. He elected to proceed with the bedside cystoscopy to see if we can get a catheter in. PROCEDURE: Bedside cystoscopy with difficult catheter placement. Informed consent was taken from the son over the phone with nurse witness Patient was prepped and draped in the usual sterile fashion. 2% lidocaine jelly was instilled into the urethra. A flexible cystoscope was advanced into the urethra. He had significant deep bulbar urethral trauma and at least 2 areas. Thankfully the true lumen could be identified after some searching and the scope was manipulated into the bladder. A flexible tip guidewire was then advanced into the bladder without difficulty and 16 [place] tip catheter well-lubricated was advanced over the guidewire into the bladder through the distorted anatomy secondary to urethral trauma from what forcible withdrawal of the catheter. He tolerated procedure well without complications. The catheter was placed to dependent drainage after irrigation confirmed good functioning. 10 cc were placed in the balloon. I reviewed the procedure and results with the son. Spoke to Dr. Spicer about the findings. We will use stat LUTS x2 to try to secure the catheter, make it harder to reach by utilizing pajama pants. Review of Systems Const: Denies: fever(s) or chills Eyes: Denies: eye discharge ENMT: Denies: hoarseness Card: Reports: palpitations; Denies: chest pain Resp: Denies: dyspnea or wheezing GI: Reports: abdominal pain; Denies: vomiting : Reports: difficulty urinating, dysuria and hematuria Musc: Denies: neck pain Skin/Breast: Denies: rash or pruritus Neuro: Reports: confusion Psych: Reports: memory loss Endo: Denies: flushing Calvin/Lymph: Reports: easy bruising and easy bleeding; Denies: enlarged lymph nodes All/Imm: Denies: acute wheezing Medications/Allergies Home Medications Medication Instructions Recorded Confirmed Last Taken Type niacin 500 mg tablet 500 mg PO DAILY@12/10/19 11/15/22 11/14/22 History omeprazole 20 mg capsule,delayed 20 mg PO DAILY@12/10/19 11/15/22 09/21/22 History release rosuvastatin 20 mg tablet (Crestor) 20 mg PO QPM 12/10/19 11/15/22 09/15/22 History tamsulosin 0.4 mg capsule 0.4 mg PO BID@12/10/19 11/15/22 09/21/22 History ferrous sulfate 325 mg (65 mg 325 mg PO .EVERY 2 DAYS 01/20/22 11/15/22 09/21/22 History iron) tablet finasteride 5 mg tablet 5 mg PO DAILY@01/20/22 11/15/22 09/20/22 History oxycodone 5 mg tablet 5 mg PO Q4H PRN pain #20 tabs 09/16/22 11/15/22 09/21/22 07:00 Rx docusate sodium 100 mg capsule 100 mg PO BID@08,20 09/21/22 11/15/22 09/21/22 History (Colace) donepezil 10 mg tablet 10 mg PO DAILY@17 09/21/22 11/15/22 11/14/22 History nitroglycerin 0.4 mg sublingual 0.4 mg sublingual Q5M PRN Chest 09/21/22 11/15/22 Unknown History tablet (Nitrostat) Pain alprazolam 0.25 mg tablet (Xanax) 0.25 mg PO Q8H PRN Anxiety 11/15/22 11/15/22 Unknown History bisacodyl 10 mg rectal suppository 10 mg [place] DAILY PRN Constipation 11/15/22 11/15/22 Unknown History magnesium hydroxide 400 mg/5 mL 30 ml PO DAILY PRN Constipation 11/15/22 11/15/22 Unknown History oral suspension (Milk of Magnesia) morphine 15 mg tablet,extended 15 mg PO Q12H 11/15/22 11/15/22 Unknown History release polyethylene glycol 3350 17 gram 17 g PO DAILY PRN Constipation 11/15/22 11/15/22 Unknown History oral powder packet (Miralax) sennosides 8.6 mg tablet (senna) 8.6 mg PO DAILY PRN Constipation 11/15/22 11/15/22 Unknown History sertraline 50 mg tablet (Zoloft) 50 mg PO DAILY@19 11/15/22 11/15/22 Unknown History sodium phosphates 19 gram-7 118 ml [place] DAILY PRN Constipation 11/15/22 11/15/22 Unknown History gram/118 mL enema (Enema Disposable) amino acids-protein hydrolysate 17 30 ea PO BID 12/20/22 12/20/22 12/20/22 History gram-100 kcal/30 mL oral liquid (Pro-Stat AWC) mirtazapine 15 mg tablet (Remeron) 15 mg PO BEDTIME 12/20/22 12/20/22 12/19/22 History nut. tx, spec. form, 90 ea PO TID 12/20/22 12/20/22 12/19/22 History lac-free,iron-fos 0.08 gram-2 kcal/mL oral liquid (TwoCal HN) warfarin 1 mg tablet 1 mg PO DAILY 12/20/22 12/20/22 12/19/22 History Allergies Allergy/AdvReac Type Severity Reaction Status Date / Time acetaminophen Allergy Intermediate ALGY-Hives Verified 12/20/22 02:15 Current Medications Generic Name Dose Route Start Last Admin Trade Name Mirzaq PRN Reason Stop Dose Admin Diltiazem HCl 100 mg/ Sodium 100 mls @ 0 mls/hr 12/20/22 04:00 12/20/22 05:30 Chloride IV 15 mg/hr .Q0M ASUNCION 15 mls/hr Titration Protocol Per Protocol Sodium Chloride 500 mls @ 999 mls/hr 12/20/22 07:30 12/20/22 07:32 Sodium Chloride 0.9% IV 999 mls/hr .Q31M ASUNCION Administration PFSH Acute PFSH: Medical History Abnormal CT of the abdomen Anemia Anticoagulant long-term use Warfarin ASHD (arteriosclerotic heart disease) Compression fracture of L2 CVA (cerebral vascular accident) GERD (gastroesophageal reflux disease) Hematochezia Hyperlipidemia Ischemic cardiomyopathy MARCELO (obstructive sleep apnea) Pulmonary HTN Secondary Supratherapeutic INR Surgical History S/P angioplasty with stent S/P CABG (coronary artery bypass graft) S/P hernia repair S/P mitral valve replacement Mechanical mitral valve S/P rotator cuff repair Family History Mother Hypertension CAD (coronary artery disease) Family/Other CAD (coronary artery disease) MATERNAL UNCLE Myocardial infarction Sister Diabetes Social History Smoking and tobacco status: never smoked Alcohol intake: never Lives independently: Yes Marital status: / service: No Current occupational status: retired Current gender identity: Male Marie/Synagogue: Judaism Vitals/I&O/Wt Last Vital Signs Temp 99 F 12/20/22 04:09 Pulse 94 12/20/22 07:53 Resp 23 H 12/20/22 07:53 BP 99/73 12/20/22 07:53 Pulse Ox 94 12/20/22 06:00 O2 Del Method 12/20/22 03:09 12/19/22 12/20/22 12/20/22 22:59 06:59 14:59 Intake Total 510.708 / 510.708 Balance 510.708 / 510.708 Weight last 48 hrs Weight 120 lb Physical Exam Const: COMMON NORMALS: no acute distress OTHER: Frail-appearing, thin HENMT: COMMON NORMALS: normocephalic and atraumatic HEAD & SCALP: normocephalic and atraumatic Eye: OTHER: No scleral icterus Neck/C-Spine: OTHER: Good range of motion Lymph: OTHER: No groin lymphadenopathy Chest: OTHER: Normal movements Resp: OTHER: No audible wheezes Cardio: OTHER: A-fib GI: OTHER: Soft, nontender, bladder slightly distended. : OTHER: Uncircumcised phallus. Blood at the meatus. Normal scrotum. Testicles descended. No evidence of butterfly hematoma etc. Back/Pelvis: OTHER: No CVA tenderness Extremity: NARRATIVE EXTREMITY EXAM: Atrophic with good range of motion Neuro: OTHER: Facial symmetry Psych: OTHER: Cooperative, confused Skin: OTHER: No jaundice Data 12/20/22 02:17 12/20/22 02:17 A&P Assessment and plan (1) Urethral injury: Secondary to forcible catheter withdrawal (2) Chronic retention of urine: (3) Urethral bleeding: Secondary to urethral injury from forceful catheter withdrawal (4) Chronic indwelling Le catheter: Plan Le catheter dependent drainage. Expect some bleeding around the catheter due to urethral trauma. Manual irrigation as needed Do not change catheter for at least a month. We will discuss option for catheter change next time in my office with cystoscopy to assess for adequate healing. Consult Attestations Medical Necessity Statement: See attending Coding Level of Care Code Acute Code for Chg Fwd Diagnoses Urethral injury S37.30XA Chronic retention of urine R33.9 Urethral bleeding N36.8 Chronic indwelling Le catheter Z97.8
--- NOTE | 2022-12-20 09:37 | PC.NURSE ---
pts bp 76/[address] Doyle and he said to turn cardizem to 5mg
[2022-12-20] MEDS: cefTRIAXone 1,000 MG in sodium chloride 0.9% (plus) 50 ML 100 MG IV (13:29)
--- NOTE | 2022-12-20 13:34 | P.EN_ITS ---
Event Note Event Note: Patient has become hypotensive. I have spent 38 minutes, evaluating the patient, reviewing history with family, updating ER staff or the patient still lives, ordering a CT scan abdomen pelvis, ordering norepinephrine. This constitutes ICU care over 30 minutes. In talking with the family, they w ant to proceed with treatment currently but are going to visit with each other regarding if he would be appropriate for comfort care considering his underlying dementia. I discussed with them what this would look like, and gave him the contact number to reach me back. Patient has a high level risk of currently. Also initiated Rocephin for possible UTI, and gave consideration to infection as a source of his hypotension. He has already had a significant amount of fluid which we will continue.
[2022-12-20 13:46] LABS: Basophils % 0.2 %; Hematocrit 27.6 % (42.0-52.0); Hemoglobin 8.2 g/dL (11.7-16.6); Lymphocytes # 0.9 10^3/uL (0.8-4.8); Lymphocytes % 4.6 %; Mean Corpuscular HGB Conc 29.7 g/dL (30.0-36.0); Mean Corpuscular Hemoglobin 25.2 pg (28.0-34.0); Mean Corpuscular Volume 84.9 fl (80-94); Mean Platelet Volume 10.2 fL (7.4-10.4); Neutrophils # 17.57 10^3/uL (1.8-7.7); Neutrophils % 89.6 %; Nucleated Red Blood Cells % 0 %; Platelet Count 291 10^3/cmm (130-400); Red Blood Count 3.25 10^6/uL (4.1-5.3); White Blood Count 19.6 10^3/uL (4.0-10.0)
[2022-12-20 14:05] LABS: Anion Gap 8.8 (5-19); Blood Urea Nitrogen 16 mg/dL (8-23); Calcium 8.7 mg/dL (8.5-10.5); Carbon Dioxide 25 mmol/L (22-29); Chloride 106 mmol/L (98-107); Glucose 116 mg/dL (65-115); Osmolality Calculated 284 mOsm/kg (285-295); Potassium 3.8 mmol/L (3.5-5.1); Sodium 136 mmol/L (136-145)
--- NOTE | 2022-12-21 09:11 | PM.DCS ---
Discharge Providers Date of Admission: 12/20/22 05:31 Date of Discharge: December 21, 2022 Attending Provider at Admission: Tavares Spicer MD Attending Provider at Discharge: Tavares Spicer MD Primary Care Provider: Alicia Spicer MD Diagnoses at Discharge Discharge Diagnosis (1) Gross hematuria: Status: Acute (2) Atrial fibrillation with RVR: Status: Acute (3) History of mitral valve replacement with mechanical valve: Status: Acute (4) Dementia: Status: Acute Reason for Visit Reason for Visit: urogenital injury Hospital Course Hospital Course Jermaine is a 87-year-old white male who presented the hospital, ER after pulling out his Le catheter. He had bled some prior to coming in. ER had significant difficulty getting it back in and urology was consulted. Patient received quite a few fluid boluses, and was noted to be significantly hypotensive. There were plans to start treating him for potentially sepsis, blood loss, ICU care, norepinephrine initiation but after long discussion with family they believed his quality of life was poor with his dementia and elected to make him comfort. He stayed overnight in the hospital to make sure this could be achieved. The following day he was discharged to the nursing facility for continuation of comfort care. He seemed to rally some the next day which I discussed with his family. We discussed possibly continuing Coumadin as he has a mechanical heart valve at a low dose, and I relayed this to the nurse practitioner that we will be seeing him at the nursing facility. Certainly with any further decline this may be discontinued as well. Le will be left in at discharge. Physical Exam Narrative: General exam no distress, confused Cardiovascular regular rate and rhythm, click heard Lungs clear Abdomen soft demonstrates Le Extremities no cyanosis clubbing or edema Discharge Data Studies Completed and Pending Completed Studies During Hospitalization Category Date Time Status XR chest 1V portable [id number] Stat Exams 12/20/22 04:17 Completed Pending at discharge Category Date Time Status Blood Culture Stat Lab 12/20/22 13:30 Results Radiology Impressions Chest X-Ray 12/20/22 04:17 IMPRESSION: No focal acute pulmonary disease identified. Laboratory Results WBC 19.6 10^3/uL (4.0-10.0) H 12/20/22 13:20 RBC 3.25 10^6/uL (4.1-5.3) L 12/20/22 13:20 Hgb 8.2 g/dL (11.7-16.6) L 12/20/22 13:20 Hct 27.6 % (42.0-52.0) L 12/20/22 13:20 MCV 84.9 fl (80-94) 12/20/22 13:20 MCH 25.2 pg (28.0-34.0) L 12/20/22 13:20 MCHC 29.7 g/dL (30.0-36.0) L 12/20/22 13:20 RDW 17.0 % (12.1-15.1) H 12/20/22 13:20 Plt Count 291 10^3/cmm (130-400) 12/20/22 13:20 MPV 10.2 fL (7.4-10.4) 12/20/22 13:20 Neut % (Auto) 89.6 % 12/20/22 13:20 Lymph % (Auto) 4.6 % 12/20/22 13:20 Mcdonald % (Auto) 5.0 % 12/20/22 13:20 Eos % (Auto) 0.0 % 12/20/22 13:20 Baso % (Auto) 0.2 % 12/20/22 13:20 Neut # (Auto) 17.57 10^3/uL (1.8-7.7) H 12/20/22 13:20 Lymph # (Auto) 0.9 10^3/uL (0.8-4.8) 12/20/22 13:20 Mcdonald # (Auto) 1.0 10^3/uL (0.2-0.9) H 12/20/22 13:20 Eos # (Auto) 0.0 10^3/uL (0.0-0.8) 12/20/22 13:20 Baso # (Auto) 0.0 10^3/uL (0.0-0.1) 12/20/22 13:20 Nucleated RBC % (auto) 0 % 12/20/22 13:20 Nucleated RBCs # 0.0 /100WBC 12/20/22 13:20 PT 17.30 SECONDS (12.1-14.9) H 12/20/22 02:17 INR 1.37 (0.8-1.2) H 12/20/22 02:17 APTT 31.4 SECONDS (23.9-36.7) 12/20/22 02:17 Sodium 136 mmol/L (136-145) 12/20/22 13:20 Potassium 3.8 mmol/L (3.5-5.1) 12/20/22 13:20 Chloride 106 mmol/L (98-107) 12/20/22 13:20 Carbon Dioxide 25 mmol/L (22-29) 12/20/22 13:20 Anion Gap 8.8 (5-19) 12/20/22 13:20 BUN 16 mg/dL (8-23) 12/20/22 13:20 Creatinine 0.8 mg/dL (0.7-1.2) 12/20/22 13:20 GFR Calculation Not Reportable 12/20/22 13:20 Glucose 116 mg/dL (65-115) H 12/20/22 13:20 Calculated Osmolality 284 mOsm/kg (285-295) L 12/20/22 13:20 Lactate 1.9 mmol/L (0.5-2.2) 12/20/22 05:06 Calcium 8.7 mg/dL (8.5-10.5) 12/20/22 13:20 Total Bilirubin 0.5 mg/dL (0.15-1.2) 12/20/22 02:17 AST 22 U/L (0-40) 12/20/22 02:17 ALT 11 U/L (0-41) 12/20/22 02:17 Alkaline Phosphatase 100 U/L (40-130) 12/20/22 02:17 Troponin T Gen 5 ng/L 60 ng/L (0-15) H 12/20/22 02:17 Total Protein 6.0 g/dL (6.6-8.7) L 12/20/22 02:17 Albumin 3.0 g/dL (3.5-5.2) L 12/20/22 02:17 Globulin 3.0 g/dL (1.3-4.6) 12/20/22 02:17 Blood Type O Negative 12/20/22 02:30 Rho(D) Type Negative 12/20/22 02:30 Antibody Screen Negative 12/20/22 02:30 Vitals Last Vital Signs Temp 99 F 12/20/22 04:09 Pulse 85 12/20/22 16:03 Resp 20 H 12/20/22 16:03 BP 104/60 12/20/22 16:03 Pulse Ox 96 12/20/22 16:03 O2 Del Method 12/20/22 16:21 Discharge Plan Discharge Patient Disposition: Xfer SNF Condition: Stable Prescriptions: New morphine 20 mg/5 mL (4 mg/mL) solution 10 mg buccal Q3H PRN (Reason: pain) Qty: 30 0RF Ativan 2 mg/mL solution 1 mg buccal Q4H PRN (Reason: agitation) Qty: 30 0RF Continued omeprazole 20 mg capsule,delayed release(DR/EC) 20 mg PO DAILY@07 nitroglycerin [Nitrostat] 0.4 mg Tablet, Sublingual 0.4 mg SUBLINGUAL Q5M PRN (Reason: Chest Pain) Rx Instructions: do not exceed 3 doses per episode docusate sodium [Colace] 100 mg Capsule 100 mg PO BID@08,20 sennosides [senna] 8.6 mg Tablet 8.6 mg PO DAILY PRN (Reason: Constipation) magnesium hydroxide [Milk of Magnesia] 400 mg/5 mL Suspension 30 ml PO DAILY PRN (Reason: Constipation) bisacodyl 10 mg Suppository 10 mg OK DAILY PRN (Reason: Constipation) Enema Disposable 19-7 gram/118 mL Enema 118 ml OK DAILY PRN (Reason: Constipation) polyethylene glycol 3350 [Miralax] 17 gram powder in packet 17 g PO DAILY PRN (Reason: Constipation) warfarin 1 mg Tablet 1 mg PO DAILY TwoCal HN 0.08-2 gram-kcal/mL Liquid 90 ea PO TID Pro-Stat AWC 17-100 gram-kcal/30 mL Liquid 30 ea PO BID Discontinued finasteride 5 mg tablet 5 mg PO DAILY@17 ferrous sulfate 325 mg (65 mg iron) tablet 325 mg PO EVERY OTHER DAY rosuvastatin [Crestor] 20 mg tablet 20 mg PO QPM tamsulosin 0.4 mg capsule 0.4 mg PO BID@08,20 niacin 500 mg tablet 500 mg PO DAILY@07 donepezil 10 mg tablet 10 mg PO DAILY@17 alprazolam [Xanax] 0.25 mg Tablet 0.25 mg PO Q8H PRN (Reason: Anxiety) morphine 15 mg Tablet Extended Release 15 mg PO Q12H sertraline [Zoloft] 50 mg Tablet 50 mg PO DAILY@19 Remeron 15 mg Tablet 15 mg PO BEDTIME oxycodone 5 mg tablet 5 mg PO Q4H PRN (Reason: pain) Qty: 20 0RF Discharge Orders: Discharge Order (Routine); Ordered 12/21/22 Ordered By: Tavares Spicer Referrals: Alicia Spicer MD [Primary Care Provider] - 4-7 days Discharge Diet: Regular Discharge Activity: Resume usual activity Activity Restrictions/Additional Instructions: Discharged to [facility] on comfort measures Discharge Attestations Time Spent in Discharge Care*: greater than 30 min Quality Metrics Clinical Quality Measures [ No reported AMI, CVA or VTE this stay] Coding Level of Care Code 79188 Total time (in minutes) for Discharge: 35 Diagnoses Gross hematuria R31.0 Atrial fibrillation with RVR I48.91 History of mitral valve replacement with mechanical valve Z95.2 Dementia F03.90
--- NOTE | 2022-12-21 10:21 | PC.CHAP ---
Pastoral Care Encounter/Spiritual Assessment Type of Contact [] Declined storage and backup administrator visit [] Patient/Family/Request visit [] Outpatient visit [] Follow-up visit [] Physician referral [] Code/Alert [x] Routine visit [] Staff referral [] Actively dying [] Patient sleeping [x] Family support [] [] Out of room [] Palliative care [] [] Receiving care in room [] Pre-surgical visit [] Trauma [] Long length of stay [] ICU visit [] Other: Relational/Emotional Strength [x] Patient feels connected with others/family/visitors/staff [] Distress [] Loneliness/isolation [] Abandonment Spirituality of Patient [x] Person of Marie [x] Attends Oriental Orthodox of their Marie [x] Believes in Prayer [x] Reads Bible or Spiritism materials [] There are Spiritual issues to be addressed Dress Draper Interventions [x] Prayer [x] Active listening [x] Non-anxious presence [x] Spiritual/emotional support [] Crisis/trauma care [] Spiritual counseling [] Bereavement support [] Provided bereavement packet [] Provided Bible/devotional materials [] Provided toy/stuffed animal, coloring book to patient or family member [] Provided Communion [] Anointing/[place] [] Salvation [x] Completed spiritual assessment [] Other: Impact on Illness or Injury [] Angry [] Fearful [] Anxious [] Often cries [] Exhaustion [] Unable to work [] Unable to attend congregation [] Unable to walk/stand [] Unable to read [] Unable to drive [] Unable to eat/drink [] Unable to sleep [] Unable to be with family [] Patient intubated [] Other: Summary Time spent with patient 20 min
[2022-12-21] MEDS: pantoprazole DR 40 mg Tablet PO (10:31)
[2022-12-21 12:00] VITALS: BP 104/60; PULSE 85; RESP 20; O2SAT 96
--- NOTE | 2022-12-21 13:40 | PC.NURSE ---
Report called to Larisa at [facility] at approximately 1145. All questions answered. IV removed. Patient tolerated well. [facility] staff here to transport patient at around 1230. Patient safely moved to ambulance stretcher. Patient safely out with ambulance personnel.
== END 2022-12-21 12:30 | disposition skilled nursing facility (03) ==
LOC: ER 08:03 → MEDSURG 16:07
PROVIDERS: Nurse Practitioner Family; Admitting Provider Internal Medicine; Emergency Provider Emergency Medicine; PCP Family Medicine; Visit Provider Internal Medicine
DX: R31.0 Gross hematuria (principal); I48.91 Unspecified atrial fibrillation; Z95.2 Presence of prosthetic heart valve; F03.90 Unspecified dementia, unspecified severity, without behavioral disturbance, psychotic disturbance, mood disturbance, and anxiety; I25.10 Atherosclerotic heart disease of native coronary artery without angina pectoris; I25.5 Ischemic cardiomyopathy; K21.9 Gastro-esophageal reflux disease without esophagitis; G47.33 Obstructive sleep apnea (adult) (pediatric); Z79.01 Long term (current) use of anticoagulants; Z86.73 Personal history of transient ischemic attack (TIA), and cerebral infarction without residual deficits; I95.9 Hypotension, unspecified; S37.30XD Unspecified injury of urethra, subsequent encounter; X58.XXXD Exposure to other specified factors, subsequent encounter
CPT/HCPCS: 36415; 51798; 71045; 80048; 80053; 83605; 84484; 85025; 85610; 85730; 86850; 86900; 87040; 93005; 96365; 96367; 96375; 99285; G0378; J0696; J2060; J3490; J7040

== ENCOUNTER 2022-12-25 15:45 | Emergency (ER) | payer MEDICARE, OTHER, SELFPAY ==
[2022-12-25 15:56] VITALS: BP 152/90; PULSE 95; RESP 16; TEMP 36.6; O2SAT 95
--- NOTE | 2022-12-25 15:58 | CTR_ITS ---
PROCEDURE INFORMATION: Exam: CT Head Without Contrast Exam date and time: 12/25/2022 5:02 PM Age: 87 years old Clinical indication: Injury or trauma; Fall; Blunt trauma (contusions or hematomas) and laceration; Without residual foreign body; Forehead; Additional info: Fall with lac and anticoag TECHNIQUE: Imaging protocol: Computed tomography of the head without contrast. Radiation optimization: All CT scans at this facility use at least one of these dose optimization techniques: automated exposure control; mA and/or kV adjustment per patient size (includes targeted exams where dose is matched to clinical indication); or iterative reconstruction. Other protocol: This patient has received 9 known CTs and 0 known cardiac nuclear medicine studies in the 12 months prior to the current study. COMPARISON: CT head wo con* [id number] 11/15/2022 9:12 AM RADIATION DOSE METRICS: Total DLP (mGy-cm): 1177.91 FINDINGS: Brain: No acute infarct. No hemorrhage. Stable involutional changes of the brain. No mass effect. Stable old bilateral frontoparietal and left occipital lobe encephalomalacia. Old bilateral basal ganglia and cerebellar lacunar-type infarcts are also unchanged. Cerebral ventricles: Stable ventricular size with stable mild ex vacuo prominence. Paranasal sinuses: Mild mucosal thickening left frontal sinus with air-fluid level. Mastoid air cells: Visualized mastoid air cells are well aerated. Bones/joints: Nondisplaced fracture through the left frontal bone involving the superior orbit seen on series 6 image number 4. Soft tissues: Right frontal scalp hematoma with associated soft tissue laceration. CT/CT head wo con* [id number] IMPRESSION: 1. No acute intracranial abnormality. 2. Nondisplaced left superior frontal bone fracture is suspected involving the orbital roof. Correlation with dedicated CT face is recommended for further assessment. 3. Right frontal scalp hematoma with associated soft tissue laceration.
--- NOTE | 2022-12-25 15:58 | CTR_ITS ---
PROCEDURE INFORMATION: Exam: CT Cervical Spine Without Contrast Exam date and time: 12/25/2022 5:02 PM Age: 87 years old Clinical indication: Injury or trauma; Fall; Blunt trauma TECHNIQUE: Imaging protocol: Computed tomography of the cervical spine without contrast. Radiation optimization: All CT scans at this facility use at least one of these dose optimization techniques: automated exposure control; mA and/or kV adjustment per patient size (includes targeted exams where dose is matched to clinical indication); or iterative reconstruction. Other protocol: This patient has received 9 known CTs and 0 known cardiac nuclear medicine studies in the 12 months prior to the current study. COMPARISON: CT angio headneck* [id number] 02/21/2022 2:46 PM RADIATION DOSE METRICS: Total DLP (mGy-cm): 172.2 FINDINGS: Bones/joints: Near anatomic alignment. No acute fracture. Multilevel degenerative changes are present. No severe spinal canal stenosis. Diffuse bony demineralization. Lungs: Lung apices are normal. Soft tissues: Unremarkable. CT/CT cervical spin wo con* [id number] IMPRESSION: No acute osseous injury.
--- NOTE | 2022-12-25 16:00 | ED_ITS ---
HPI - Fall General: Chief Complaint: Fall Stated Complaint: SCALP LAC S/P FALL Time Seen by Provider: 12/25/22 15:53 Source: patient and EMS Mode of arrival: EMS Limitations: no limitations History of Present Illness: This patient was transported from the [facility] by EMS. He apparently suffered a ground-level fall at the [facility]. He has sustained a laceration to his right forehead. Reportedly and the patient states that he tripped and fell there was no syncope associated with his fall. Complains of pain in his neck as well as his laceration. He is also apparently had some other skin tears noted by EMS. He apparently takes warfarin. He denies any other symptoms at this time. Additional history obtained from [facility]: Apparently was discovered by staff there having sustained a unknown loss of consciousness. He also has a history of Alzheimer's related dementia. He also apparently has had his Coumadin held for several days and was given a dose yesterday and then split his dose out today. Fall from: standing Place fall occurred: [facility] Loss of consciousness: Unsure Location of injury: head Associated symptoms-after fall: Reports neck pain; Denies headache(s) Review of Systems Eyes: Denies: change in vision Card: Denies: syncope or pre-syncope GI: Denies: nausea or vomiting Musc: Reports: neck pain; Denies: back pain or extremity pain Neuro: Denies: headache(s) Calvin/Lymph: Reports: easy bruising and easy bleeding PFSH ED PFSH: Medical History Abnormal CT of the abdomen Anemia Anticoagulant long-term use Warfarin ASHD (arteriosclerotic heart disease) Compression fracture of L2 CVA (cerebral vascular accident) GERD (gastroesophageal reflux disease) Hematochezia Hyperlipidemia Ischemic cardiomyopathy MARCELO (obstructive sleep apnea) Pulmonary HTN Secondary Supratherapeutic INR Surgical History S/P angioplasty with stent S/P CABG (coronary artery bypass graft) S/P hernia repair S/P mitral valve replacement Mechanical mitral valve S/P rotator cuff repair Family History Mother Hypertension CAD (coronary artery disease) Family/Other CAD (coronary artery disease) MATERNAL UNCLE Myocardial infarction Sister Diabetes Social History Smoking and tobacco status: never smoked Alcohol intake: never Lives independently: Yes Marital status: / service: No Current occupational status: retired Current gender identity: Male Marie/Gnosticist: Hoahaoism Physical Exam Narrative: EXAM NARRATIVE: Patient is alert answers questions readily. Const: COMMON NORMALS: no acute distress and alert GENERAL APPEARANCE: cooperative and frail appearing NUTRITIONAL APPEARANCE: thin ORIENTATION/CONSCIOUSNESS: Yes awake and Yes oriented to person HENMT: COMMON NORMALS: normocephalic, Normal nasal mucous membranes and turbinates present, moist oral mucous membranes and oropharynx normal HEAD & SCALP: normocephalic FACE & SINUS IMAGES: 1. Laceration 2. Ecchymosis NOSE: Normal nasal mucous membranes and turbinates present Eye: COMMON NORMALS: Equal, round and reactive pupils present, EOMs intact bilaterally and conjunctivae normal CONJUNCTIVA: Yes conjunctivae normal PUPIL: Yes Equal, round and reactive pupils present Neck/C-Spine: CERVICAL SPINE: Yes Cervical spine tenderness Chest: COMMONS NORMALS: normal inspection of the chest and normal palpation of entire chest wall Resp: COMMON NORMALS: normal respiratory effort, No retractions, No use of accessory muscles and clear to auscultation bilaterally AUSCULTATION: clear to auscultation bilaterally Cardio: COMMON NORMALS: regular rate, regular rhythm and Peripheral pulses 2+ throughout RATE: regular rate RHYTHM: regular rhythm HEART SOUNDS: Clicking heart sound present and Murmur heart sound present PERIPHERAL PULSES: Peripheral pulses 2+ throughout GI: COMMON NORMALS: Normal to inspection, nondistended, normoactive bowel sounds present, Soft to palpation and non-tender PALPATION: Yes Soft to palpation : COMMON NORMALS: Yes no CVA tenderness BLADDER/KIDNEY EXAM: Yes no CVA tenderness Back/Pelvis: COMMON NORMALS: no CVA tenderness, thoracic and lumbar spine normal to inspection, no thoracic nor lumbar tenderness and straight leg raise negative bilaterally Extremity: COMMON NORMALS: full ROM, no calf tenderness and no pedal edema NARRATIVE EXTREMITY EXAM: He has a couple of isolated skin tears on the right forearm. Also has a previous skin tear with Steri-Strips Neuro: LUDY COMA SCALE: document GCS findings Ludy coma scale eye opening: Spontaneous [place] coma scale verbal response: Orientated Ludy coma scale motor response: Obey commands Paulding coma scale total score: 15 COMMON NORMALS: moves all extremities, no focal motor deficits and no sensory deficits noted SENSORIUM/ORIENTATION: Yes alert and Yes oriented to person Procedures Laceration Laceration 1: Site: scalp Side (If applicable): right Size (cm): 6 Description: linear and clean Depth: simple, single layer Local Anesthetic: lidocaine 1% and with epi Amount of anesthesia used (mL): 3 Pre-repair: wound explored and deep structures intact (No step-off, no periosteal involvement etc.) Skin layer closed with: nylon Size (cm): 4-0 Number of sutures: 14 Technique: simple, interrupted Course Reevaluation(s): Reevaluation #1: Facial CT results known. Will consult otolaryngology in [place] to determine recommended course for his frontal bone and supraorbital fractures. Time: 19:38 Reevaluation #2: I had consulted with ENT staff at [facility] and they did not recommend any acute intervention. I also shared this with the family who further enlighten me that he was on comfort care only. At this point he has no evidence of acute intracranial hemorrhage, or other concerning issues that would require further inpatient observation and I think he is suitable to be discharged back to the long-term care facility. Family is in agreement with this plan of care. Time: 20:28 Consultations: Consultation #1: Consulted with ENT services [facility]. They did not recommend prophylactic antibiotics or any other aggressive care of this type of injury at this time. Time: 20:33 Vital Signs: Vital signs: Vital Signs Temperature 97.8 F 12/25/22 15:56 Pulse Rate 106 H 12/25/22 18:08 Respiratory Rate 14 12/25/22 18:08 Blood Pressure 152/90 12/25/22 18:08 Pulse Oximetry 94 12/25/22 18:08 Oxygen Delivery Me thod 12/25/22 18:08 MDM - Fall Medical Decision Making 87-year-old gentleman who was transported from long-term care facility after being found after sustaining a ground level fall. He has sustained a large laceration to his right scalp that was repaired in the emergency department. Imaging was obtained which revealed no evidence of intracranial hemorrhage, skull fracture but did have fracture in the frontal sinus region as well as a fracture into the supraorbital region. There is no evidence of entrapment, ocular injury etc. He had previously been on Coumadin which had been discontinued approximately 2 weeks ago and then attempted to be restarted 2 days ago but he only had 1 dose. His INR was less than 1.5 making his risk of delayed bleeding low. He had other skin tears that were repaired with Steri- Strips and topical means. Saltation with ENT reaffirmed that no acute intervention was indicated at this time and further discussion with the family was also undertaken who revealed that he was comfort care patient and that he did not require or desire any acute intervention. He will be discharged back to his usual comfort care in the long-term care facility. Lab Data 12/25/22 18:27 Radiology Impressions Cervical Spine CT 12/25/22 15:58 IMPRESSION: No acute osseous injury. Head CT 12/25/22 15:58 IMPRESSION: 1. No acute intracranial abnormality. 2. Nondisplaced left superior frontal bone fracture is suspected involving the orbital roof. Correlation with dedicated CT face is recommended for further assessment. 3. Right frontal scalp hematoma with associated soft tissue laceration. ADDENDUM: 12/25/221823 Findings were discussed with RUPERTO Martin at 12/25/2022 6:22 PM J2EE CONSULTANT. Face CT 12/25/22 17:45 IMPRESSION: Minimally comminuted fracture through the posterior wall of the left frontal sinus without significant displacement. Fracture line extends through the superolateral orbital roof with minimal subjacent extraconal hemorrhage and emphysema. There is no significant left-sided proptosis. These findings are similar to the same-day CT head. ADDENDUM: 12/25/221822 Findings were discussed with RUPERTO Martin at 12/25/2022 6:22 PM J2EE CONSULTANT. Laboratory Results WBC 12.5 10^3/uL (4.0-10.0) H 12/25/22 18: RBC 3.98 10^6/uL (4.1-5.3) L 12/25/22 18: Hgb 10.0 g/dL (11.7-16.6) L 12/25/22 18: Hct 33.3 % (42.0-52.0) L 12/25/22 18: MCV 83.7 fl (80-94) 12/25/22 18: MCH 25.1 pg (28.0-34.0) L 12/25/22 18: MCHC 30.0 g/dL (30.0-36.0) 12/25/22 18: RDW 17.4 % (12.1-15.1) H 12/25/22 18: Plt Count 402 10^3/cmm (130-400) H 12/25/22 18: MPV 10.5 fL (7.4-10.4) H 12/25/22 18: Neut % (Auto) 74.0 % 12/25/22 18: Lymph % (Auto) 15.4 % 12/25/22 18: [place] % (Auto) 6.6 % 12/25/22 18: Eos % (Auto) 2.6 % 12/25/22: Baso % (Auto) 0.6 % 12/25/22 Neut # (Auto) 9.24 10^3/uL (1.8-7.7) H 12/25/22: Lymph # (Auto) 1.9 10^3/uL (0.8-4.8) 12/25/22 18: [place] # (Auto) 0.8 10^3/uL (0.2-0.9) 12/25/22 18: Eos # (Auto) 0.3 10^3/uL (0.0-0.8) 12/25/22: Baso # (Auto) 0.1 10^3/uL (0.0-0.1) 12/25/22: Nucleated RBC % (auto) 0 % 12/25/22 Nucleated RBCs # 0.0 /100WBC 12/25/22 18: PT 14.50 SECONDS (12.1-14.9) 12/25/22: INR 1.09 (0.8-1.2) 12/25/22 Discharge Plan Discharge Patient Disposition: LTCH w Plan Readm Clinical Impression: Laceration of skin of scalp, Closed fracture of frontal sinus Condition: Stable Prescriptions: Discontinued warfarin 1 mg Tablet 1 mg PO DAILY No Action omeprazole 20 mg capsule,delayed release(DR/EC) 20 mg PO DAILY@07 nitroglycerin [Nitrostat] 0.4 mg Tablet, Sublingual 0.4 mg SUBLINGUAL Q5M PRN (Reason: Chest Pain) Rx Instructions: do not exceed 3 doses per episode docusate sodium [Colace] 100 mg Capsule 100 mg PO BID@08,20 sennosides [senna] 8.6 mg Tablet 8.6 mg PO DAILY PRN (Reason: Constipation) magnesium hydroxide [Milk of Magnesia] 400 mg/5 mL Suspension 30 ml PO DAILY PRN (Reason: Constipation) bisacodyl 10 mg Suppository 10 mg ND DAILY PRN (Reason: Constipation) Enema Disposable 19-7 gram/118 mL Enema 118 ml ND DAILY PRN (Reason: Constipation) polyethylene glycol 3350 [Miralax] 17 gram powder in packet 17 g PO DAILY PRN (Reason: Constipation) TwoCal HN 0.08-2 gram-kcal/mL Liquid 90 ea PO TID Pro-Stat AWC 17-100 gram-kcal/30 mL Liquid 30 ea PO BID morphine 20 mg/5 mL (4 mg/mL) solution 10 mg buccal Q3H PRN (Reason: pain) Qty: 30 0RF lorazepam [Ativan] 2 mg/mL solution 1 mg buccal Q4H PRN (Reason: agitation) Qty: 30 0RF Discharge Orders: Discharge ED (Routine); Ordered 12/25/22 Ordered By: Ruperto Mcintosh Referrals: Alicia Spicer MD [Primary Care Provider] - Discharge Diet: Usual diet Discharge Activity: Resume usual activity Patient Instructions: Laceration (ED) Activity Restrictions/Additional Instructions: Patient should not resume his Coumadin. Otherwise continue comfort care as previously outlined. Sutures to remove from his wound in approximately 5-7 days . Coding Level of Care Code ED Floor Technician for Chris Maharaj
[2022-12-25 16:46] VITALS: RESP 16
--- NOTE | 2022-12-25 17:45 | CTR_ITS ---
PROCEDURE INFORMATION: Exam: CT Maxillofacial Without Contrast Exam date and time: 12/25/2022 5:56 PM Age: 87 years old Clinical indication: Injury or trauma; Fall; Blunt trauma (contusions or hematomas); Head/scalp and forehead and lip/oral cavity; Loss of consciousness; Both upper and lower; Additional info: Suspected orbit fracture on head CT TECHNIQUE: Imaging protocol: Computed tomography of the face without contrast. Radiation optimization: All CT scans at this facility use at least one of these dose optimization techniques: automated exposure control; mA and/or kV adjustment per patient size (includes targeted exams where dose is matched to clinical indication); or iterative reconstruction. Other protocol: This patient has received 10 known CTs and 0 known cardiac nuclear medicine studies in the 12 months prior to the current study. COMPARISON: CT head wo con* [id number] 12/25/2022 5:02 PM RADIATION DOSE METRICS: Total DLP (mGy-cm): 612.19 FINDINGS: Orbital cavities: Deep to the fracture there is 3 mm of extraconal hemorrhage in the superior orbit and small focus of extraconal orbital emphysema. The globes are intact. The optic nerves and extraocular muscles are normal. No significant proptosis. Bones/joints: The bones are diffusely demineralized. No other facial bone fracture seen. Paranasal sinuses: Minimally comminuted fracture is seen through the posterior wall of the left frontal sinus on series 3, image 75 without significant displacement. The fracture line extends through the superolateral orbital roof on series 6, image 5. The adjacent left frontal sinus is opacified with high density secretions likely blood and has an air-fluid level. Soft tissues: Minimal superior right frontal scalp hematoma/laceration unchanged. Brain: The visualized brain parenchyma demonstrates no evidence of hemorrhage. CT/CT facial bones wo con* [id number] IMPRESSION: Minimally comminuted fracture through the posterior wall of the left frontal sinus without significant displacement. Fracture line extends through the superolateral orbital roof with minimal subjacent extraconal hemorrhage and emphysema. There is no significant left-sided proptosis. These findings are similar to the same-day CT head.
[2022-12-25 18:08] VITALS: BP 152/90; PULSE 106; RESP 14; O2SAT 94
--- NOTE | 2022-12-25 18:32 | PC.NURSE ---
PT 02 SATS DROP WHILE HE SLEEPS. PT PLACED ON 2L BY NC
[2022-12-25 18:33] LABS: Basophils # 0.1 10^3/uL (0.0-0.1); Basophils % 0.6 %; Eosinophils # 0.3 10^3/uL (0.0-0.8); Eosinophils % 2.6 %; Hematocrit 33.3 % (42.0-52.0); Lymphocytes # 1.9 10^3/uL (0.8-4.8); Lymphocytes % 15.4 %; Mean Corpuscular Hemoglobin 25.1 pg (28.0-34.0); Mean Corpuscular Volume 83.7 fl (80-94); Mean Platelet Volume 10.5 fL (7.4-10.4); Monocytes # 0.8 10^3/uL (0.2-0.9); Monocytes % 6.6 %; Neutrophils # 9.24 10^3/uL (1.8-7.7); Nucleated Red Blood Cells % 0 %; Platelet Count 402 10^3/cmm (130-400); Red Blood Count 3.98 10^6/uL (4.1-5.3); Red Cell Distribution Width 17.4 % (12.1-15.1); White Blood Count 12.5 10^3/uL (4.0-10.0)
[2022-12-25 18:44] LABS: INR 1.09 (0.8-1.2)
--- NOTE | 2022-12-25 20:10 | PC.NURSE ---
Pt. has pulled steri strips off of the wounds on his arm .Dr. Mcintosh has instructed to clean wounds and place op site on wounds , due to patient confusion, patient pulls them off. Pt. cleaned and wound dressed. Pt. is confused and pulling blankets off of himself and trying to climb out of bed. Pt. pulled up in bed, blankets rearranged and pt. in comfortable position. Sitter now at bedside for patient safety.
== END 2022-12-25 21:24 ==
PROVIDERS: Emergency Provider Emergency Medicine; PCP Family Medicine
DX: S01.01XA Laceration without foreign body of scalp, initial encounter (principal); S02.19XA Other fracture of base of skull, initial encounter for closed fracture; Z86.73 Personal history of transient ischemic attack (TIA), and cerebral infarction without residual deficits; E78.5 Hyperlipidemia, unspecified; Z95.1 Presence of aortocoronary bypass graft; W01.0XXA Fall on same level from slipping, tripping and stumbling without subsequent striking against object, initial encounter
CPT/HCPCS: 12002; 36415; 70450; 70486; 72125; 85025; 85610; 99284